=== PATIENT | female | born 1970 | race Caucasian/White ===

== ENCOUNTER 2020-12-15 10:40 | Outpatient (REF) | payer OTHER, SELFPAY ==
--- NOTE | 2020-12-15 10:04 | US_ITS ---
EXAMINATION: US ABDOMEN COMPLETE CLINICAL INFORMATION: Left lower quadrant pain and nausea. COMPARISON: Previous CT August 2018 and abdominal ultrasound June 2018 TECHNIQUE: Real-time imaging of the abdominal viscera. FINDINGS: PANCREAS: The body the pancreas are normal. The tail is not well visualized due to bowel gas. The midabdominal aorta is not well visualized due to bowel gas. ABDOMINAL AORTA: The proximal and distal segments are normal in caliber. INFERIOR VENA CAVA: Visualized portions are normal. LIVER: Liver echotexture is increased probably representing fatty infiltration. Liver is normal in size and shape. No focal liver lesion. There is no intrahepatic biliary duct dilatation seen. GALLBLADDER: The gallbladder has been removed. COMMON BILE DUCT: Normal in caliber measuring 0.3 cm in diameter. RIGHT KIDNEY: Normal. No hydronephrosis. No renal calculi or focal parenchymal lesions. The kidney measures 12.6 cm in maximum dimension. LEFT KIDNEY: There are 2 small stones measuring 2 mm in the midpole 3 mm in the lower pole. No hydronephrosis. No focal parenchymal lesions. The kidney measures 10.7 cm in maximum dimension. SPLEEN: Normal. The spleen measures 9.1 cm in maximum dimension. FREE FLUID: None. US/US abdomen complete IMPRESSION: Small left renal stones. Fatty liver. Limited visualization of the pancreas and aorta.
== END 2020-12-15 10:41 | disposition home or self-care (01) ==
LOC: HO.HMGCX 10:40
PROVIDERS: PCP Internal Medicine Geriatric Medicine; Visit Provider Registered Nurse
DX: R10.32 Left lower quadrant pain (principal); R11.0 Nausea; Z87.19 Personal history of other diseases of the digestive system
CPT/HCPCS: 76700

== ENCOUNTER 2021-01-24 14:17 | Emergency (ER) | payer OTHER, SELFPAY ==
[2021-01-24] VITALS (7 sets, daily range): BP systolic 110–128; BP diastolic 55–72; PULSE 82–99; RESP 16–20; TEMP 36.9–37; O2SAT 93–99; BMI 35.6
--- NOTE | ~2021-01-24 | CT_ITS ---
EXAMINATION: CT ABDOMEN AND PELVIS WITH CONTRAST CLINICAL INFORMATION: Left lower quadrant pain. COMPARISON: CT of the abdomen and pelvis dated 08/24/2018. TECHNIQUE: Multidetector volumetric images were obtained from the superior aspect of the liver through the pubic symphysis following administration 85 mL of Omnipaque 350 intravenous contrast. Sagittal and coronal reformatted images were obtained on the technologist's workstation. Oral contrast: No This CT examination was performed using dose optimization techniques as appropriate, variously including the following: *Automated exposure control *Adjustment of mA and/or kV according to patient size (this includes techniques or standardized protocols for targeted exams where dose is matched to indication/reason for exam; i.e. extremities or head) *Use of iterative reconstruction technique DLP: 716 mGy-cm FINDINGS: LUNG BASES: Lung bases are clear. Heart is normal in size. No pericardial effusion or thickening. LIVER, GALLBLADDER, AND BILIARY TREE: The liver is increased in size measuring up to 20.9 cm craniocaudal. Greater than 40 Hounsfield unit attenuation difference between the hepatic parenchyma splenic parenchyma compatible with steatotic changes. Gallbladder surgically absent. No intrahepatic or extra hepatic biliary ductal dilation. PANCREAS: Normal. SPLEEN: Normal. ADRENAL GLANDS: Normal. KIDNEYS AND URETERS: Symmetric nephrograms. No solid enhancing lesions. Tiny punctate nonobstructive calculus in the inferior pole the right kidney. No hydronephrosis. Ureters are normal in caliber throughout their course. BLADDER: Normal. GASTROINTESTINAL TRACT: Stomach is normal in caliber. The small and large bowel are unremarkable. Cecum is mobilized into the midline pelvis. No pericecal inflammatory changes are appreciated. Appendix is not definitively visualized. No midabdominal mesenteric inflammatory changes are seen. No rectal wall thickening is appreciated. PERITONEUM/RETROPERITONEUM AND MESENTERY: No intraperitoneal free air or fluid. Attention to the left lower quadrant demonstrates no evidence of mesenteric fat stranding or an acute inflammatory process. Nonenlarged left lower quadrant mesenteric lymph node measures up to 0.7 cm. ABDOMINAL WALL: No significant hernia is appreciated. LYMPH NODES: No pathologically enlarged lymph nodes. VASCULAR: Hepatic veins are normal. IVC is normal. No DVT visualized. Portal venous system is patent. Moderate aortoiliac atherosclerotic calcification. PELVIC VISCERA: Uterus is not visualized. Vaginal cuff is normal in appearance. No adnexal mass. OSSEOUS STRUCTURES/SOFT TISSUES: No aggressive osseous lesions. Neurostimulator in the right back posterior subcutaneous soft tissues with leads terminating at the T7 level. Left flank soft tissue stranding around a metallic dense structure (3:42). This is noted at the location of previously seen neurostimulator device on comparison 08/24/2018 examination which was at that time was positioned in the left posterior subcutaneous soft tissues. CT/CT abdomen pelvis w con IMPRESSION: 1. No CT explanation for left lower quadrant abdominal pain. No inflammatory process in the left lower quadrant or abdomen and pelvis is appreciated. 2. Hepatomegaly and hepatic steatosis. 3. Chronic inflammatory changes and scarring around the site of the removed left flank neurostimulator device in comparison to 08/24/2018 examination. 4. Cholecystectomy. 5. Hysterectomy.
--- NOTE | 2021-01-24 14:28 | ED_ITS ---
HPI - Abdominal Pain General Chief Complaint: Abdominal Pain Stated Complaint: FLANK PAIN,?KIDNEY STONE Time Seen by Provider: 01/24/21 14:28 Source: patient and EMS Mode of arrival: EMS Limitations: no limitations History of Present Illness HPI narrative: 51 yo female 1 month of L flank pain did have US but reports she only had punctate kidney stones, the patient is worsening and she c/o nausea MD elicited complaint: abdominal pain and flank pain Pertinent past history: kidney stones Onset (ago): month(s) (1) Pain Consistency: intermittent Location: LLQ and L flank Severity: severe Quality: stabbing Radiation: LLQ Migration to: no migration Exacerbating factors: nothing Relieving factors: nothing Associated symptoms: nausea Related Data Allergies Allergy/AdvReac Type Severity Reaction Status Date / Time bupropion [From ZYBAN] Allergy Intermediate HIVES Verified 01/24/21 14:32 clindamycin [CLINDAMYCIN] Allergy Intermediate HIVES Verified 01/24/21 14:32 clyndomicin Allergy Unknown Rash Uncoded 01/24/21 14:32 ziban Allergy Unknown Hives Uncoded 01/24/21 14:32 Review of Systems Review of Systems Constitutional : No Weight loss, No Fever, No Chills ENT/Mouth : No sore throat, No Rhinorrhea Eyes: No Swelling, No Redness Cardiovascular : No Chest Pain, No SOB, NoEdema Respiratory : No Cough, No Sputum, No Wheezing Gastrointestinal : Positive Nausea, no Vomiting, no Diarrhea, positive abdominal Pain, No Hematochezia, No Melena Genitourinary : No Dysuria, pos Urinary Frequency, No Hematuria, No Urgency Musculoskeletal : No joint pain, No Myalgias, No Joint Swelling Skin : No Skin Lesions, No rash Neuro : No Weakness, No Numbness, No Dizziness, No Headache Psych : No Anxiety/Panic, No Depression Heme/Lymph: No Bruising, No Lymphadenopathy Endocrine : No Polyuria, No Polydipsia All other systems reviewed and are negative. Physical Exam Vital Signs: Vital Signs: Last Vital Signs Temp 98.4 F 01/24/21 16:00 Pulse 89 01/24/21 16:00 Resp 16 01/24/21 16:00 BP 116/60 01/24/21 16:00 Pulse Ox 99 01/24/21 16:00 Body Mass Index 35.6 Appearance: Alert. Oriented X3. No acute distress. Eyes: Pupils equal, round and reactive to light. ENT: Pharynx normal. Neck: Normal inspection. Neck supple. CVS: Normal heart rate and rhythm. Pulses normal. Respiratory: No respiratory distress. Breath sounds normal. Abdomen: Soft and moderate LLQ pain, mild L CVA ttp Skin: Skin warm and dry. Normal skin color. Normal skin turgor. Extremities: No lower extremity edema. No calf ttp Neuro: Oriented X 3. No motor deficit. No sensory deficit. Course Course Course Narrative: signed out pending CT scan MDM - Abdominal Pain MDM Narrative Medical decision making narrative: 51 yo female with DM comes in with 1 month of LLQ pain some nausea and urinary frequency had US punctate renal stones - at this time will need labs, IV morphine for pain, CT scan to evaluate for diverticulitis/mass. Lab Data Result diagrams: 01/24/21 15:19 01/24/21 15:19 Labs: Lab Results 01/24/21 01/24/21 01/24/21 Range/Units 15:19 15:19 15:20 WBC 16.1 H (4.8-10.8) X10*3/uL RBC 5.04 (4.20-5.50) X10*6/uL Hgb 16.1 H (12.0-16.0) g/dl Hct 48.5 H (37-47) % MCV 96.2 (80-98) fL MCH 31.9 (27.0-33.0) pg MCHC 33.2 (31.0-35.0) g/dl RDW 14.1 (11.0-16.0) % Plt Count 277 (160-400) X10*3/uL MPV 11.5 (9.4-12.3) fL Immature Gran % (Auto) 0.5 H (0.0-0.4) % Neut % (Auto) 76.2 H (45-73) % Lymph % (Auto) 16.9 L (20-40) % [place] % (Auto) 5.0 (2-11) % Eos % (Auto) 1.0 (0-4) % Baso % (Auto) 0.4 (0-2) % Lymph # (Auto) 2.7 (1.2-4.9) X10*3/uL [place] # (Auto) 0.8 (0.1-1.2) X10*3/uL Eos # (Auto) 0.2 (0.0-0.4) X10*3/uL Baso # (Auto) 0.1 (0.0-0.2) X10*3/uL Abs Immat Gran (auto) 0.08 H (0.00-0.03) X10*3/uL Absolute Neuts (auto) 12.3 H (2.0-8.3) X10*3/uL Absolute Nucleated RBC 0.000 (0.0-0.012) X10*3/uL Nucleated RBC % (auto) 0.0 (0.0-0.2) /100WBC Hold Blue Top SEE NOTE Urine Color YELLOW Urine Appearance CLEAR Urine pH 6.5 (5.0-8.0) Ur Specific [place] 1.025 (1.005-1.025) Urine Protein NEG (NEG-TRACE) MG/DL Urine Glucose (UA) NEG (NEG) MG/DL Urine Ketones NEG (NEG) MG/DL Urine Blood TRACE (NEG) Urine Nitrite NEG (NEG) Ur Leukocyte Esterase NEG (NEG) Urine RBC 1-4 (0) /HPF Urine WBC 0-2 (0-4) /HPF Ur Squamous Epith Cells 1+ /LPF Urine Bacteria 1+ /LPF Discharge Plan Discharge Clinical Impression: Abdominal pain PMFSH Past Medical History Attestation statement: The following information was validated with the patient. Medical History Anxiety Cholecystectomy planned Depression Diabetes Presence of neurostimulator Surgical History History of appendectomy History of hysterectomy Hx of cholecystectomy Social History Social History Alcohol intake: never Smoking Status: Current every day smoker Smoked in Last 30 Days: Yes Use of substances other than those prescribed or required for medical reasons: No Advance Directives: No Advance Directives Information Provided: No
[2021-01-24] MEDS: ondansetron HCL 4 MG/2 ML VIAL IVPUSH (15:22)
[2021-01-24] MEDS: Morphine Sulfate 4 MG/ML CARTRIDGE IVPUSH (15:23)
[2021-01-24 15:32] LABS: MANUAL DIFF FLAG NO
[2021-01-24 15:38] LABS: Glucose Urine UA NEG (NEG); Leukocyte Esterase Urine NEG (NEG); Nitrite Urine NEG (NEG); PH 6.5 (5.0-8.0); Specific Gravity - Urine 1.025 (1.005-1.025); Urine Blood TRACE (NEG); Urine Ketones NEG (NEG); Urine Protein NEG (NEG-TRACE)
[2021-01-24 15:39] LABS: Basophils Absolute Auto 0.1 X10*3/uL (0.0-0.2); Basophils Percent Auto 0.4 % (0-2); Eosinophils Absolute Auto 0.2 X10*3/uL (0.0-0.4); Hematocrit 48.5 % (37-47); Hemoglobin 16.1 g/dl (12.0-16.0); Imm Gran Abs Auto 0.08 X10*3/uL (0.00-0.03); Imm Gran Pct Auto 0.5 % (0.0-0.4); Lymphocytes Absolute Auto 2.7 X10*3/uL (1.2-4.9); Lymphocytes Percent Auto 16.9 % (20-40); Mean Corpuscular HGB Conc 33.2 g/dl (31.0-35.0); Mean Corpuscular Hemoglobin 31.9 pg (27.0-33.0); Mean Corpuscular Volume 96.2 fL (80-98); Mean Platelet Volume 11.5 fL (9.4-12.3); Monocytes Absolute Auto 0.8 X10*3/uL (0.1-1.2); Neutrophils Absolute Auto 12.3 X10*3/uL (2.0-8.3); Neutrophils Percent Auto 76.2 % (45-73); Platelet Count 277 X10*3/uL (160-400); Red Blood Count 5.04 X10*6/uL (4.20-5.50); Red Cell Distribution Width 14.1 % (11.0-16.0); White Blood Count 16.1 X10*3/uL (4.8-10.8)
[2021-01-24 15:39] LABS: Appearance Urine CLEAR; Color Urine YELLOW
[2021-01-24 15:48] LABS: Bacteria Urine 1+ /LPF; Squamous Epithelial Cell Urine 1+ /LPF; WBC Urine 0-2 /HPF (0-4)
[2021-01-24 16:51] LABS: Alanine Aminotransferase 51 U/L (0-31); Albumin Level 4.4 g/dL (3.5-5.0); Alkaline Phosphatase 192 U/L (39-117); Anion Gap 12 (12-20); Aspartate Amino Transferase 60 U/L (5-31); Bilirubin Direct 0.2 mg/dL (0.0-0.5); Bilirubin Total 0.5 mg/dL (0.0-1.0); Blood Urea Nitrogen 10 mg/dL (9-16); Calcium 9.7 mg/dL (8.4-10.2); Carbon Dioxide 26 mmol/L (22-29); Chloride 103 mmol/L (96-108); Creatinine Clr Calc Pharmacy 77.9; Estimated Glomerular Filt Rate > 60; Glucose Random 126 mg/dL (60-115); Lipase 31 U/L (8-78); Magnesium 2.2 mg/dL (1.6-2.6); Potassium 5.3 mmol/L (3.3-5.1); Sodium 136 mmol/L (135-145)
[2021-01-24] MEDS: iohexoL 350 MG/ML 100 ML INFUS..BTL IV (17:05)
[2021-01-24 17:17] LABS: Lactic Acid 1.4 mmol/L (0.5-2.0)
[2021-01-24] MEDS: Morphine Sulfate 2 MG/ML CARTRIDGE IVPUSH (18:28)
[2021-01-24] MEDS: PHENobarb/Hyoscy/Atropine/Scop 10 ML ELIXIR PO (18:32)
== END 2021-01-24 18:40 | disposition home or self-care (01) ==
PROVIDERS: Emergency Medicine; Emergency Provider Emergency Medicine; PCP Internal Medicine Geriatric Medicine
DX: R10.32 Left lower quadrant pain (principal); R11.0 Nausea; E11.9 Type 2 diabetes mellitus without complications; Z96.82 Presence of neurostimulator; F17.200 Nicotine dependence, unspecified, uncomplicated
CPT/HCPCS: 36415; 74177; 80048; 80076; 81001; 83605; 83690; 83735; 85025; 87040; 96374; 96375; 96376; 99284; J2270; J2405; Q9967

== ENCOUNTER 2021-02-21 17:35 | Emergency (ER) | payer OTHER, SELFPAY ==
--- NOTE | ~2021-02-21 | CT_ITS ---
EXAMINATION: CT ABDOMEN AND PELVIS WITHOUT CONTRAST CLINICAL INFORMATION: Left flank pain. COMPARISON: CT abdomen and pelvis 02/21/2021 TECHNIQUE: Multidetector volumetric imaging was performed from the superior aspect of the liver through the pubic symphysis. Sagittal and coronal reformatted images were obtained on the technologist's workstation. This CT examination was performed using dose optimization techniques as appropriate, variously including the following: *Automated exposure control *Adjustment of mA and/or kV according to patient size (this includes techniques or standardized protocols for targeted exams where dose is matched to indication/reason for exam; i.e. extremities or head) *Use of iterative reconstruction technique DLP: 660 mGy-cm FINDINGS: LUNG BASES: The visualized lung bases are unremarkable. LIVER, GALLBLADDER, AND BILIARY TREE: The liver is increased in size, normal shape, and diffusely attenuated. No focal hepatic lesion or biliary ductal dilatation is present. The gallbladder as been surgically removed. PANCREAS: Unremarkable. SPLEEN: Unremarkable. ADRENAL GLANDS: Unremarkable. KIDNEYS AND URETERS: The kidneys are normal in size, shape, and attenuation. There is a 4 mm nonobstructing radiopaque calculi lower pole calyx right kidney. BLADDER: Unremarkable. GASTROINTESTINAL TRACT: There is scattered stool and gas seen throughout the colon without significant distention. Nonspecific mild mural thickening involving descending and sigmoid colon but no diverticula are seen. No pericolic fat stranding. . The cecum lies to the left from midline with normal appearing midline appendix. The small bowel loops are normal caliber. No free air or free fluid. ABDOMINAL WALL: There is a small umbilical hernia containing fat LYMPH NODES: No abnormal-sized mesenteric or inguinal lymph nodes seen. VASCULAR: Unremarkable. PELVIC VISCERA: The uterus appears surgically absent. No adnexal mass seen. There is no free air or free fluid. OSSEOUS STRUCTURES: There is mild loss of L3 superior endplate height similar to previous study. Lower thoracic posterior epidural spinal stimulators are noted. CT/CT abdomen pelvis wo con IMPRESSION: Mobile cecum with likely left of midline with a normal appendix and IC junction. Nonspecific thickening of descending and sigmoid colon but no inflammatory process suspected. Similar findings were seen on the previous CT abdomen exam dated 01/24/2021. Nonobstructive radiopaque calculi lower pole right kidney. It is unchanged to previous exam. No hydronephrosis. Mild hepatomegaly with fatty liver. No focal lesion seen.
[2021-02-21 17:41] VITALS: BP 112/51; BP 122/72; PULSE 93; RESP 18; TEMP 37.6; O2SAT 99; BMI 32.5
--- NOTE | 2021-02-21 17:44 | ED.ABDPAIN ---
HPI - Abdominal Pain General Chief Complaint: Abdominal Pain Stated Complaint: LT ABD PAIN Time Seen by Provider: 02/21/21 17:41 History of Present Illness HPI narrative: Patient is a 51-year-old female with a history of kidney stones. Presents today with having abdominal pain on the left side. Radiating to the flank area. Pain 8/10 very sudden in onset. Does not change with movement. Positive nausea no vomiting. No diarrhea. Patient from home. No cough no congestion or upper respiratory symptoms no diaphoresis. No chest pain. Related Data Previous Rx's Medication Instructions Recorded hyoscyamine sulfate 0.125 mg PO QID #14 tab 01/24/21 Allergies Allergy/AdvReac Type Severity Reaction Status Date / Time bupropion [From ZYBAN] Allergy Intermediate HIVES Verified 01/24/21 14:32 clindamycin [CLINDAMYCIN] Allergy Intermediate HIVES Verified 01/24/21 14:32 clyndomicin Allergy Unknown Rash Uncoded 01/24/21 14:32 ziban Allergy Unknown Hives Uncoded 01/24/21 14:32 Review of Systems Review of Systems Constitutional: No Weight loss, No Fever, No Chills, No Night Sweats, No Fatigue, No Malaise ENT/Mouth: No Hearing loss, No Ear Pain, No Nasal Congestion, No Sinus Pain, No Hoarseness, No sore throat, No Rhinorrhea, No Swallowing Difficulty Eyes: No Eye Pain, No Swelling, No Redness, No Foreign Body, No Discharge, No Vision Changes Cardiovascular: No Chest Pain, No SOB, No Dyspnea on Exertion, No Orthopnea, No Edema, No Palpitations Respiratory: No Cough, No Sputum, No Wheezing, No Smoke Exposure, No Dyspnea Gastrointestinal: No Nausea, No Vomiting, No Diarrhea, No Constipation, positive abdominal Pain, No Hematochezia, No Melena Genitourinary: no irregular bleeding, No Dysuria, No Urinary Frequency, No Hematuria, No Urinary Incontinence, No Urgency, No Flank Pain, No Urinary Flow Changes, No Hesitancy Musculoskeletal: No joint pain, No Myalgias, No Joint Swelling Skin: No Skin Lesions, No rash Neuro: No Weakness, No Numbness, No Paresthesias, No Loss of Consciousness, No Dizziness, No Headache Psych: No Anxiety/Panic, No Depression, No SI/HI/AH/VH, No Social Issues, Heme/Lymph: No Bruising, No Bleeding,No Lymphadenopathy Endocrine: No Polyuria, No Polydipsia, No Temperature Intolerance Physical Exam Vital Signs: Vital Signs: Last Vital Signs Temp 98.5 F 02/21/21 18:47 Pulse 89 02/21/21 18:47 Resp 18 02/21/21 18:47 BP 120/67 02/21/21 18:47 Pulse Ox 93 02/21/21 18:47 Body Mass Index 32.5 Appearance: Alert. Oriented X3. No acute distress. Eyes: Pupils equal, round and reactive to light. ENT: Pharynx normal. Neck: Normal inspection. Neck supple. No lymph nodes noted. No crepitus CVS: Normal heart rate and rhythm. Pulses normal. Normal S1 and S2 Respiratory: No respiratory distress. Breath sounds normal. No Wheezing. No rales Abdomen: Soft and nontender. No rigidity. No distention. good BS x4 Skin: Skin warm and dry. Normal skin color. Normal skin turgor. Extremities: No lower extremity edema. Neurovascular intact to all extremities. No Lacerations. No Rash Neuro: Oriented X 3. No motor deficit. No sensory deficit. Moving all extermities. No slurred speech MDM - Abdominal Pain MDM Narrative Medical decision making narrative: Patient's pain is controlled. Electrolytes unremarkable. Creatinine is normal. Urine showed no infection. Patient claims she had an ultrasound that showed potential kidney stone. Since the CT was done today it did not show any acute findings consistent with the pain. There is no stones. Will discharge patient home. Lab Data Result diagrams: 02/21/21 18:03 02/21/21 18:42 Labs: Lab Results 02/21/21 02/21/21 02/21/21 Range/Units 18:03 18:42 18:54 WBC 14.2 H (4.8-10.8) X10*3/uL RBC 5.12 (4.20-5.50) X10*6/uL Hgb 16.0 (12.0-16.0) g/dl Hct 48.5 H (37-47) % MCV 94.7 (80-98) fL MCH 31.3 (27.0-33.0) pg MCHC 33.0 (31.0-35.0) g/dl RDW 13.4 (11.0-16.0) % Plt Count 264 (160-400) X10*3/uL MPV 11.1 (9.4-12.3) fL Immature Gran % (Auto) 0.4 (0.0-0.4) % Neut % (Auto) 69.6 (45-73) % Lymph % (Auto) 21.4 (20-40) % [place] % (Auto) 6.3 (2-11) % Eos % (Auto) 1.7 (0-4) % Baso % (Auto) 0.6 (0-2) % Lymph # (Auto) 3.0 (1.2-4.9) X10*3/uL [place] # (Auto) 0.9 (0.1-1.2) X10*3/uL Eos # (Auto) 0.2 (0.0-0.4) X10*3/uL Baso # (Auto) 0.1 (0.0-0.2) X10*3/uL Abs Immat Gran (auto) 0.05 H (0.00-0.03) X10*3/uL Absolute Neuts (auto) 9.9 H (2.0-8.3) X10*3/uL Absolute Nucleated RBC 0.000 (0.0-0.012) X10*3/uL Nucleated RBC % (auto) 0.0 (0.0-0.2) /100WBC Sodium 139 (135-145) mmol/L Potassium 3.8 D (3.3-5.1) mmol/L Chloride 107 (96-108) mmol/L Carbon Dioxide 21 L (22-29) mmol/L Anion Gap 15 (12-20) BUN 9 (9-16) mg/dL Creatinine 0.73 (0.5-1.4) mg/dL Estim Creat Clear Calc 94.6 Estimated GFR > 60 Random Glucose 104 (60-115) mg/dL Calcium 9.2 (8.4-10.2) mg/dL Total Bilirubin 0.3 (0.0-1.0) mg/dL Direct Bilirubin < 0.2 (0.0-0.5) mg/dL AST 34 H D (5-31) U/L ALT 43 H (0-31) U/L Alkaline Phosphatase 178 H (39-117) U/L Total Protein 7.2 (6.5-8.0) g/dL Albumin 4.1 (3.5-5.0) g/dL Urine Color YELLOW Urine Appearance CLEAR Urine pH 6.0 (5.0-8.0) Ur Specific [place] 1.015 (1.005-1.025) Urine Protein NEG (NEG-TRACE) MG/DL Urine Glucose (UA) NEG (NEG) MG/DL Urine Ketones NEG (NEG) MG/DL Urine Blood 1+ H (NEG) Urine Nitrite NEG (NEG) Ur Leukocyte Esterase NEG (NEG) Urine RBC 5-9 H (0) /HPF Urine WBC 1-4 (0-4) /HPF Ur Squamous Epith Cells 2+ /LPF Urine Bacteria TRACE /LPF Urine Mucus TRACE /LPF Discharge Plan Discharge Clinical Impression: Abdominal pain Patient Disposition: Home, Self-Care Instructions: Abdominal Pain (ED) Prescriptions: No Action hyoscyamine sulfate 0.125 mg tablet 0.125 mg PO QID Qty: 14 RF: 0 Referrals: Name,MD Hakan [Primary Care Provider] - 2 days Print Language: Turkish [facility] Past Medical History Medical History Anxiety Cholecystectomy planned Depression Diabetes Presence of neurostimulator Surgical History History of appendectomy History of hysterectomy Hx of cholecystectomy Social History Social History Alcohol intake: never Smoking Status: Current every day smoker Advance Directives: No Advance Directives Information Provided: Yes
[2021-02-21] MEDS: 0.9 % Sodium Chloride 1,000 ML 999 ML IV (18:04)
[2021-02-21 18:08] VITALS: RESP 18
[2021-02-21] MEDS: ondansetron HCL 4 MG/2 ML VIAL IVPUSH (18:08)
[2021-02-21] MEDS: HYDROmorphone HCl 0.5 MG/0.5 ML SYRINGE IVPUSH (18:08)
[2021-02-21 18:09] LABS: MANUAL DIFF FLAG NO
[2021-02-21 18:11] LABS: Basophils Absolute Auto 0.1 X10*3/uL (0.0-0.2); Basophils Percent Auto 0.6 % (0-2); Eosinophils Absolute Auto 0.2 X10*3/uL (0.0-0.4); Eosinophils Percent Auto 1.7 % (0-4); Hematocrit 48.5 % (37-47); Imm Gran Abs Auto 0.05 X10*3/uL (0.00-0.03); Imm Gran Pct Auto 0.4 % (0.0-0.4); Lymphocytes Percent Auto 21.4 % (20-40); Mean Corpuscular Hemoglobin 31.3 pg (27.0-33.0); Mean Corpuscular Volume 94.7 fL (80-98); Mean Platelet Volume 11.1 fL (9.4-12.3); Monocytes Absolute Auto 0.9 X10*3/uL (0.1-1.2); Monocytes Percent Auto 6.3 % (2-11); Neutrophils Absolute Auto 9.9 X10*3/uL (2.0-8.3); Neutrophils Percent Auto 69.6 % (45-73); Platelet Count 264 X10*3/uL (160-400); Red Blood Count 5.12 X10*6/uL (4.20-5.50); Red Cell Distribution Width 13.4 % (11.0-16.0); White Blood Count 14.2 X10*3/uL (4.8-10.8)
[2021-02-21 18:47] VITALS: BP 120/67; PULSE 89; RESP 18; TEMP 36.9; O2SAT 93
[2021-02-21 19:02] LABS: Glucose Urine UA NEG (NEG); Leukocyte Esterase Urine NEG (NEG); Nitrite Urine NEG (NEG); Specific Gravity - Urine 1.015 (1.005-1.025); Urine Blood 1+ (NEG); Urine Ketones NEG (NEG); Urine Protein NEG (NEG-TRACE)
[2021-02-21 19:07] LABS: Appearance Urine CLEAR; Color Urine YELLOW
[2021-02-21 19:10] LABS: Alanine Aminotransferase 43 U/L (0-31); Albumin Level 4.1 g/dL (3.5-5.0); Alkaline Phosphatase 178 U/L (39-117); Anion Gap 15 (12-20); Aspartate Amino Transferase 34 U/L (5-31); Bilirubin Direct < 0.2 mg/dL (0.0-0.5); Bilirubin Total 0.3 mg/dL (0.0-1.0); Blood Urea Nitrogen 9 mg/dL (9-16); Calcium 9.2 mg/dL (8.4-10.2); Carbon Dioxide 21 mmol/L (22-29); Chloride 107 mmol/L (96-108); Creatinine Clr Calc Pharmacy 94.6; Estimated Glomerular Filt Rate > 60; Glucose Random 104 mg/dL (60-115); Potassium 3.8 mmol/L (3.3-5.1); Sodium 139 mmol/L (135-145); Total Protein 7.2 g/dL (6.5-8.0)
[2021-02-21 19:18] LABS: Bacteria Urine TRACE /LPF; Mucus Urine TRACE /LPF; Squamous Epithelial Cell Urine 2+ /LPF
[2021-02-21] MEDS: Ketorolac Tromethamine 30 MG/ML VIAL IVPUSH (19:21)
== END 2021-02-21 20:26 | disposition home or self-care (01) ==
PROVIDERS: Emergency Provider Emergency Medicine Emergency Medical Services; PCP Internal Medicine Geriatric Medicine
DX: R10.9 Unspecified abdominal pain (principal); Z87.442 Personal history of urinary calculi; E11.9 Type 2 diabetes mellitus without complications; F17.200 Nicotine dependence, unspecified, uncomplicated
CPT/HCPCS: 36415; 74176; 80048; 80076; 81001; 81003; 85025; 96361; 96374; 96375; 99283; 99284; J1170; J1885; J2405

== ENCOUNTER → 2021-02-27 07:54 | Outpatient (BNVA) | payer OTHER, SELFPAY | PROVIDERS: PCP Internal Medicine Geriatric Medicine; Visit Provider Physician Assistant | DX: R10.32 Left lower quadrant pain (principal); G89.29 Other chronic pain | CPT/HCPCS: 99202 ==

== ENCOUNTER → 2021-03-13 08:23 | Outpatient (BNVA) | payer OTHER, SELFPAY | PROVIDERS: PCP Internal Medicine Geriatric Medicine; Visit Provider Physician Assistant | DX: R10.32 Left lower quadrant pain (principal); G89.29 Other chronic pain | CPT/HCPCS: 99212 ==

== ENCOUNTER 2021-03-20 10:57 | Day surgery (SDC) | payer OTHER, SELFPAY ==
[2021-03-20 11:13] VITALS: BMI 35.5
[2021-03-20 11:19] VITALS: BP 143/81; PULSE 82; RESP 18; TEMP 36; O2SAT 97
[2021-03-20 11:30] LABS: Glucose, Whole Blood 176 mg/dL (60-115)
--- NOTE | 2021-03-20 11:32 | P.CONAN_ITS ---
[facility] Active Problems Active Problems: All Active Problems (Updated 03/15/21 @ 16:03 by Donita hernandes) Chronic LLQ pain (Acute) Past Medical History Medical History Anxiety Cholecystectomy planned Chronic LLQ pain Depression Diabetes Frequent headaches Presence of neurostimulator Family History Family History Father No problems noted. Surgical History Surgical History History of appendectomy History of hysterectomy Hx of cholecystectomy Hx of left inguinal hernia repair S/P insertion of spinal cord stimulator Social History Social History Household Members: Spouse Alcohol intake: never Smoking Status: Current every day smoker Cigarettes Per Day: 6 Use of substances other than those prescribed or required for medical reasons: No Have you been hit, kicked, punched, or otherwise hurt by someone within the past year? If so, by whom?: No Advance Directives: No Advance Directives Information Provided: Yes Current occupational status: unemployed and disabled Meds Allergies Allergy/AdvReac Type Severity Reaction Status Date / Time bupropion [From ZYBAN] Allergy Intermediate HIVES Verified 03/15/21 15:55 clindamycin [CLINDAMYCIN] Allergy Intermediate HIVES Verified 03/15/21 15:55 Home Medications Medication Instructions Recorded Confirmed Last Taken Type citalopram 40 mg tablet 40 mg PO DAILY 02/27/21 03/15/21 Unknown History clonazepam 1 mg tablet 1 mg PO DAILY 02/27/21 03/15/21 Unknown History mirtazapine 45 mg tablet 45 mg PO BEDTIME 02/27/21 03/15/21 Unknown History quetiapine 100 mg tablet 100 mg PO BEDTIME 02/27/21 03/15/21 Unknown History tizanidine 4 mg tablet 4 mg PO BEDTIME 02/27/21 03/15/21 Unknown History risperidone 1 tab PO BEDTIME 03/15/21 03/15/21 Unknown History risperidone 1 tab PO QAM 03/15/21 03/15/21 Unknown History Exam Exam Date and Time: March 20, 2021 1132 Height,Weight and Vital Signs: Height 5 ft 1 in Weight 85.275 kg Last Vital Signs Temp 96.8 F 03/20/21 11:19 Pulse 82 03/20/21 11:19 Resp 18 03/20/21 11:19 BP 143/81 H 03/20/21 11:19 Pulse Ox 97 03/20/21 11:19 Pertinent Lab Results Pertinent Lab Results: Laboratory Tests 03/20/21 11:25 POC Glucose 176 H Airway Mallampati Class: II (Edentulous) TM Dist: >3cm Neck ROM: Full Denture: Upper and Lower Loose/Missing/Broken Teeth: Yes, Upper and Lower Heart: RRR Lungs: CTA Assessment and Plan Assessment Anesthesia Assessment: Anesthesia Plan Discussed and Chart Reviewed Final Anesthetic Review NPO: Yes ASA Class: II Final Preanesthetic Review: Meds/Allgs Chart Reviewed, Consent Obtained/Reviewed and Anes Risks/Benef Reviewed Patient Risk: Low Procedure Risk: Low Anesthetic Plan Anesthetic Plan: MAC: Disposition: Standard PACU
[2021-03-20] MEDS: Lactated Ringers 1,000 ML 50 ML IV (11:41)
--- NOTE | 2021-03-20 11:58 | P.OP_ITS ---
Operative Note Operative Note Date of Service: 03/20/21 Narrative: Pre-op diagnosis: Colon cancer screening, left lower quadrant pain, history of colon polyps Post-op diagnosis: other (Colon polyps) Procedure: COLONOSCOPY TILL CECUM WITH BIOPSIES Consent: Indications for the procedure and potential complications of bleeding, perforation, reaction to medications and missed diagnosis were discussed with the patient and informed consent was obtained. Instrument: Olympus PCF H 190 L variable stiffness pediatric colonoscope Monitoring: Vital signs and clinical assessment, intermittent blood pressure monitoring, continuous EKG monitoring, Pulse oximetry and Carbon Dioxide monitoring were done throughout the procedure. Colon withdrawl time was 26 minutes. Procedure: The patient was placed in the left lateral decubitis position and pre-procedure medications were administered. After a digital rectal examination of the ano-rectum, the video colonoscope was inserted into the rectum and advanced through the colon to the cecum. The colonoscope was slowly withdrawn in a retrograde panoramic fashion and the colon mucosa was carefully examined including a retroflexed view of the rectum. Findings and interventions are described below. Procedure Difficulty: Colon was long tortuous and redundant and there was some will formation. No maneuvers were required Findings: Terminal Ileum: Not evaluated Cecum: Normal Ascending Colon: Normal Transverse Colon: Normal Descending Colon: Normal Sigmoid Colon: A few 2-4 mm diminutive appearing polyps in sigmoid colon - two were removed with the cold biopsy. Rectum: Normal Ano-rectum: Normal Colon preparation: Good after copious irrigation Impression and Post Procedure Diagnosis: Colonoscopy Findings: Two diminutive polyps removed Random biopsies were obtained from the colon. Plan: Await pathology results Patient has an appointment on 03/29/21 in the GI Clinic with PAKO Rivera. Repeat Colonoscopy interval based on path results - in 5 years if polyps are adenomatous and due to history of colon polyps. Above findings were reviewed with the patient and colon polyps handout was given in the discharge area Surgeon: Jacob Cadena MD Anesthesia: MAC (Lesly Jackson CRNA) Enrollment Eligibility Representative: Kole Machado Estimated blood loss (mL): 0 Pathology: other (A- RANDOM COLON BXS R/O MICROSCOPIC COLITIS B- SIGMOID POLYPS) Condition: stable Disposition: PACU
--- NOTE | 2021-03-20 11:58 | MHC.SHP ---
Pre-Procedural Eval Section A The patient is an INPATIENT: No Changes since office visit: Yes Patient answered all questions; No Cold of Flu in the past 2 weeks, No New Medical Problems and No Changes in Medication The History & Physical has been completed within 30 days and I have reviewed it.: Yes Section B Chief Complaint: Chronic LLQ pain Allergies: Allergies Allergy/AdvReac Type Severity Reaction Status Date / Time bupropion [From ZYBAN] Allergy Intermediate HIVES Verified 03/15/21 15:55 clindamycin [CLINDAMYCIN] Allergy Intermediate HIVES Verified 03/15/21 15:55 Plan Diagnosis/Plan: Unchanged I have reviewed the history and physical and performed a pertinent physical examination on my patient. No changes have occurred unless specified.
[2021-03-20 13:02] VITALS: BP 104/70; PULSE 83; RESP 16; TEMP 36.2; O2SAT 94
[2021-03-20 13:17] VITALS: BP 122/71; PULSE 78; RESP 18; TEMP 36.2; O2SAT 95
== END 2021-03-20 13:50 | disposition home or self-care (01) ==
PROVIDERS: PCP Internal Medicine Geriatric Medicine; Visit Provider Internal Medicine Gastroenterology
PROC: 0DJD8ZZ Inspection of Lower Intestinal Tract, Via Natural or Artificial Opening Endoscopic (ICD-10-PCS; CPT 45378; principal; 2021-03-20 12:20)
DX: Z12.11 Encounter for screening for malignant neoplasm of colon (principal); Z86.010 Personal history of colon polyps; K63.5 Polyp of colon; R10.32 Left lower quadrant pain; G89.4 Chronic pain syndrome; E11.9 Type 2 diabetes mellitus without complications; Z90.49 Acquired absence of other specified parts of digestive tract; Z96.82 Presence of neurostimulator; F17.210 Nicotine dependence, cigarettes, uncomplicated; Z79.899 Other long term (current) drug therapy; Z88.8 Allergy status to other drugs, medicaments and biological substances
CPT/HCPCS: 45380; 82947; 88305

== ENCOUNTER → 2021-03-29 13:37 | Outpatient (BNVA) | payer OTHER, SELFPAY | PROVIDERS: Visit Provider Physician Assistant | CPT/HCPCS: Q3014 ==

== ENCOUNTER 2021-05-04 11:56 | Outpatient (REF) | payer OTHER, SELFPAY ==
--- NOTE | ~2021-05-04 | CT_ITS ---
EXAMINATION: CT ABDOMEN WITH CONTRAST CLINICAL INFORMATION: Left upper quadrant pain. COMPARISON: Portions of a previous CT performed without IV contrast 02/21/2021. TECHNIQUE: Contiguous axial thin section helical images of the abdomen were performed following the administration of oral contrast and 85 mL of Omnipaque 350 intravenous contrast. The data set was reformatted in the coronal and sagittal planes and reviewed on an independent workstation. This CT examination was performed using dose optimization techniques as appropriate, variously including the following: *Automated exposure control *Adjustment of mA and/or kV according to patient size (this includes techniques or standardized protocols for targeted exams where dose is matched to indication/reason for exam; i.e. 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 There are leads extending into the lower thoracic spinal canal. No evidence of small bowel obstruction. LUNG BASES: No suspicious abnormality in the visualized lower chest. LIVER, GALLBLADDER, AND BILIARY TREE: Diffuse low-attenuation throughout the liver consistent with fatty change. The liver contour is smooth. There is no suspicious focal liver lesion. Suspect previous cholecystectomy. No biliary dilation. PANCREAS: No pancreatic mass or peripancreatic stranding. SPLEEN: No suspicious abnormality. ADRENAL GLANDS AND KIDNEYS: The adrenal glands appear within normal limits. There is no dilation of the urinary collecting system on either side. The nephrograms are symmetric. There is no suspicious renal mass. No perinephric stranding. There is no opaque urinary calculus. BOWEL LOOPS: There is apparent narrowing and wall thickening in the region of the splenic flexure. There is no enteric contrast in the region of the splenic flexure of the colon. There is contrast within the colon proximal and distal to this segment. There is no small bowel dilation. No suspicious abnormality of the stomach. LYMPH NODES: There are no enlarged abdominal or pelvic lymph nodes. VASCULAR: The study is not well timed for arterial assessment. There is fairly extensive atherosclerosis. Mesenteric vasculature is not well evaluated. BONES: There is an electronic device in the soft tissues of the lower right flank. Opaque leads project into the lower thoracic spinal canal. There is some unchanged chronic-appearing abnormality in the soft tissues on the left which could reflect the site of an old electronic device. Small segments of a left-sided lead may be present within the soft tissues. CT/CT abdomen w con IMPRESSION: There is apparent wall thickening and luminal narrowing in the splenic flexure of the colon. This could reflect colitis. This is an area which can be involved by ischemia but this is nonspecific. Other etiologies should also be considered. Some clinical correlation is necessary. There is no CT evidence of acute pancreatitis. There is no evidence of left-sided urinary obstruction.
[2021-05-04 12:41] LABS: Hematocrit 50.7 % (37-47); Hemoglobin 16.9 g/dl (12.0-16.0); Mean Corpuscular HGB Conc 33.3 g/dl (31.0-35.0); Mean Corpuscular Hemoglobin 31.4 pg (27.0-33.0); Mean Corpuscular Volume 94.2 fL (80-98); Mean Platelet Volume 11.1 fL (9.4-12.3); Platelet Count 256 X10*3/uL (160-400); Red Blood Count 5.38 X10*6/uL (4.20-5.50); White Blood Count 14.7 X10*3/uL (4.8-10.8)
[2021-05-04 12:58] LABS: Alanine Aminotransferase 33 U/L (0-31); Albumin Level 4.5 g/dL (3.5-5.0); Alkaline Phosphatase 195 U/L (39-117); Anion Gap 15 (12-20); Aspartate Amino Transferase 32 U/L (5-31); Bilirubin Total 0.3 mg/dL (0.0-1.0); Blood Urea Nitrogen 14 mg/dL (9-16); Calcium 9.7 mg/dL (8.4-10.2); Carbon Dioxide 23 mmol/L (22-29); Chloride 106 mmol/L (96-108); Estimated Glomerular Filt Rate > 60; Glucose Random 126 mg/dL (60-115); Lipase 30 U/L (8-78); Potassium 4.7 mmol/L (3.3-5.1); Sodium 139 mmol/L (135-145); Total Protein 7.8 g/dL (6.5-8.0)
[2021-05-04] MEDS: iohexoL 350 MG/ML 100 ML INFUS..BTL IV (15:53)
[2021-05-04] MEDS: Barium Sulfate Oral (Mocha) 450 ML ORAL.SUSP PO (16:04)
== END 2021-05-04 11:57 | disposition home or self-care (01) ==
LOC: HO.CT 11:56
PROVIDERS: PCP Internal Medicine Geriatric Medicine; Visit Provider Internal Medicine Geriatric Medicine
DX: R10.12 Left upper quadrant pain (principal)
CPT/HCPCS: 36415; 74160; 80053; 83690; 85027; Q9967

== ENCOUNTER → 2021-06-11 15:02 | Outpatient (BNVA) | payer OTHER, SELFPAY | PROVIDERS: PCP Internal Medicine Geriatric Medicine; Visit Provider Internal Medicine | DX: R52 Pain, unspecified (principal) | CPT/HCPCS: 20552; 99212; J1040 ==

== ENCOUNTER 2021-07-11 10:45 | Day surgery (SDC) | payer OTHER, SELFPAY ==
--- NOTE | 2021-07-10 09:16 | HO.ANESPROP2 ---
Documented by User: Jeannette Ochoa NP 07/10/21 09:20 HPI - Anesthesia Eval Consult details Narrative: 51yo F for Revision Spinal Cord Stimulator left lead, possible implantable pulse generator spinal stim implanted/revised 2018 [facility] Active Problems Active Problems: All Active Problems (Updated 06/11/21 @ 16:03 by Jon Ho MD) Pain in pacemaker pocket (Acute) Chronic LLQ pain (Acute) Past Medical History Medical History Anxiety Cholecystectomy planned Chronic LLQ pain Depression Diabetes Frequent headaches Pain in pacemaker pocket Presence of neurostimulator Family History Family History Father No problems noted. Surgical History Surgical History History of appendectomy History of hysterectomy Hx of cholecystectomy Hx of left inguinal hernia repair S/P insertion of spinal cord stimulator Social History Social History (Updated 03/29/21 @ 13:40 by Rosanna Curtis CMA) Household Members: Significant Other Household Members Other:: lives with BF Alcohol intake: never Patient Tobacco Use Status: Current everyday Tobacco user Tobacco use type: Cigarette Cigarettes Per Day: 6 Smoked in Last 30 Days: Yes Use of substances other than those prescribed or required for medical reasons: No Are you DNR?: No Advance Directives: No Advance Directives Information Provided: Yes Recently lost weight without trying: No Nutrition Risks: No Nutritional Risk Patient : No Current occupational status: disabled Meds Allergies Allergy/AdvReac Type Severity Reaction Status Date / Time bupropion [From ZYBAN] Allergy Intermediate HIVES Verified 06/11/21 15:08 clindamycin [CLINDAMYCIN] Allergy Intermediate HIVES Verified 06/11/21 15:08 Home Medications Medication Instructions Recorded Confirmed Last Taken Type citalopram 40 mg tablet (Celexa) 40 mg PO DAILY 02/27/21 03/29/21 Unknown History clonazepam 1 mg tablet (Klonopin) 1 mg PO DAILY 02/27/21 03/29/21 Unknown History mirtazapine 45 mg tablet 45 mg PO BEDTIME 02/27/21 03/29/21 Unknown History quetiapine 100 mg tablet (Seroquel) 100 mg PO BEDTIME 02/27/21 03/29/21 Unknown History tizanidine 4 mg tablet 4 mg PO BEDTIME 02/27/21 03/29/21 Unknown History risperidone 1 mg tablet 1 tab PO QAM 03/15/21 03/29/21 Unknown History risperidone 3 mg tablet 1 tab PO BEDTIME 03/15/21 03/29/21 Unknown History Exam Exam Date and Time: July 10, [id number] Pertinent Lab Results Pertinent Lab Results: Laboratory Tests 05/04/21 05/04/21 12:28 12:28 WBC 14.7 H Hgb 16.9 H Hct 50.7 H Plt Count 256 Sodium 139 Potassium 4.7 D Chloride 106 Carbon Dioxide 23 BUN 14 D Creatinine 0.92 Assessment and Plan Assessment Anesthesia Assessment: Chart Reviewed Documented by User: Malaika Mcbride MD 07/11/21 13:26 [facility] Past Medical History Medical History Anxiety Cholecystectomy planned Chronic LLQ pain Depression Diabetes Frequent headaches Pain in pacemaker pocket Presence of neurostimulator Functional capacity: independent ambulation Patient : No Family History Family History Father No problems noted. Family history of problems with anesthesia: No Surgical History Surgical History History of appendectomy History of hysterectomy Hx of cholecystectomy Hx of left inguinal hernia repair S/P insertion of spinal cord stimulator History of Problems with Anesthesia: No Social History Social History (Updated 03/29/21 @ 13:40 by Rosanna Curtis CMA) Household Members: Significant Other Household Members Other:: lives with Alcohol intake: never Patient Tobacco Use Status: Current everyday Tobacco user Tobacco use type: Cigarette Cigarettes Per Day: 6 Smoked in Last 30 Days: Yes Use of substances other than those prescribed or required for medical reasons: No Are you DNR?: No Advance Directives: No Advance Directives Information Provided: Yes Recently lost weight without trying: No Nutrition Risks: No Nutritional Risk Patient : No Current occupational status: disabled Meds Allergies Allergy/AdvReac Type Severity Reaction Status Date / Time bupropion [From ZYBAN] Allergy Intermediate HIVES Verified 06/11/21 15:08 clindamycin [CLINDAMYCIN] Allergy Intermediate HIVES Verified 06/11/21 15:08 Home Medications Medication Instructions Recorded Confirmed Last Taken Type citalopram 40 mg tablet (Celexa) 40 mg PO DAILY 02/27/21 03/29/21 Unknown History clonazepam 1 mg tablet (Klonopin) 1 mg PO DAILY 02/27/21 03/29/21 Unknown History mirtazapine 45 mg tablet 45 mg PO BEDTIME 02/27/21 03/29/21 Unknown History quetiapine 100 mg tablet (Seroquel) 100 mg PO BEDTIME 02/27/21 03/29/21 Unknown History tizanidine 4 mg tablet 4 mg PO BEDTIME 02/27/21 03/29/21 Unknown History risperidone 1 mg tablet 1 tab PO QAM 03/15/21 03/29/21 Unknown History risperidone 3 mg tablet 1 tab PO BEDTIME 03/15/21 03/29/21 Unknown History Exam Airway Mallampati Class: IV TM Dist: >3cm Neck ROM: Full Denture: Upper and Lower Heart: RRR Lungs: CTA Assessment and Plan Final Anesthetic Review Family History of Problems with Anesthesia: No History of Problems with Anesthesia: No
--- NOTE | ~2021-07-11 | FL_ITS ---
EXAMINATION: XR FLUOROSCOPY WITH IMAGES CLINICAL INFORMATION: Lead revision COMPARISON: None. TECHNIQUE: Fluoroscopy performed by Dr. Ho . Fluoroscopy time: 2.9 minutes DAP: 13.4 mGycm2 Images: 1 FINDINGS: A single image PA projection reveals to leads positioned posterior to T8-T10 vertebra. Visualized bones and disc levels are unremarkable. FL/FL guidance in OR IMPRESSION: Fluoroscopy was provided to the referring physician for lead revision.
[2021-07-11 10:50] VITALS: BMI 34.4
[2021-07-11 10:57] VITALS: BP 122/67; PULSE 95; RESP 16; TEMP 35.9; O2SAT 95
[2021-07-11] MEDS: Lactated Ringers 1,000 ML 100 ML IVCONT (11:12)
[2021-07-11 11:16] LABS: Glucose, Whole Blood 142 mg/dL (60-115)
--- NOTE | 2021-07-11 12:00 | MHC.SHP ---
Pre-Procedural Eval Section A Date of Service: 07/11/21 Section B Chief Complaint: Left SCS lead migration Allergies: Allergies Allergy/AdvReac Type Severity Reaction Status Date / Time bupropion [From ZYBAN] Allergy Intermediate HIVES Verified 06/11/21 15:08 clindamycin [CLINDAMYCIN] Allergy Intermediate HIVES Verified 06/11/21 15:08 Exam Surgical H&P Exam: Normal: HEENT Plan Diagnosis/Plan: Unchanged I have reviewed the history and physical and performed a pertinent physical examination on my patient. No changes have occurred unless specified.
--- NOTE | 2021-07-11 12:01 | P.BOP_ITS ---
Brief Operative Note Date of Service: 07/11/21 Pre-op diagnosis: Left SCS lead migration Post-op diagnosis: same Procedure: SCS Lead Revision, Left; IPG Replacement Implants: SCS lead and battery Surgeon: Jon Ho MD Anesthesia: MAC Was an Coder Operator used for this Procedure?: No Estimated blood loss (mL): 10 Pathology: none sent Condition: stable Disposition: PACU
--- NOTE | 2021-07-11 12:02 | W.PM.OPN ---
Operative Note Operative Note Date of Service: 07/11/21 Narrative: SCS Revision with reinsertion of left epidural lead and replacement of implantable pulse generator Description of Procedure: ? Informed written consent was obtained. Cefazolin 2 g was?started 30 minutes prior to incision. The patient was taken to the operating room and placed in prone position. The low thoracic and lumbar back was prepped with Chlorhexadine twice, with three minutes allotted for drying time,?draped in the usual sterile fashion. Local anesthetic consisting of 0.25% Marcaine with Lidocaine 1% with?epinephrine was injected in the area of both prior incisions. Fluoroscopy was used to identify the location of the anchors and leads. Insertion site for the left lead was identified at the L2-3 level. ?A #15 blade was used to reincise over her midline scar. The existing left lead was found floating in the soft tissue and was removed with tip intact. The anchor was found buried under the fascia and was subsequently removed as well. A 14 gauge Touhy needle was then used to obtain loss of resistance to air in the L1-2 interspace. A new lead was then threaded without resistance along the dorsal column up to the top of T8 vertebra. At this point, the new left and existing right leads were connected to the carter and the patient's anesthetic was lightened so that she could provide feedback regarding stimulation. From the spinal cord stimulator leads, the patient was able to obtain coverage of her left lower back and leg pain. This coverage was deemed to be satisfactory.?The Touhy was then removed and the new lead anchored to the prevertebral fascia using 2-0 Tycron.?Final confirmation of retention of lead placement was confirmed by using fluoroscopy. Attention was now directed toward the IPG pocket. Local anesthetic was used to infiltrate the skin overlying the planned incision site. A #15 blade was used to incise the skin. Blunt dissection was used and the IPG was pulled atraumatically. Leads were disconnected and the battery removed from the operating field. A 20 cm extension was connected to the midline lead to IPG pocket. The spinal cord stimulator leads from the midline back, were then pulled through the subcutaneous tunnel and inserted into a new IPG. The connection was secured with a screwdriver. The implantable pulse generator was placed back in the existing pocket. Impedance checks were done and appropriate impedances found. ?Antibiotic irrigation was used prior to closure. Pocket incision was closed with continuous and midline back incision was closed with interrupted 2-0 Vicryl, deep dermal with 3-0 Vicryl, and the skin using santos. Dressed with bacitracin ointment, sterile gauze, Tegederm. The patient was then woken and transferred to a stretcher and taken to the recovery room.?
[2021-07-11 15:15] VITALS: BP 114/73; PULSE 90; RESP 16; TEMP 36.2; O2SAT 96
[2021-07-11 15:30] VITALS: BP 110/62; PULSE 77; RESP 18; O2SAT 98
[2021-07-11 15:45] VITALS: BP 122/50; PULSE 81; RESP 17; TEMP 36.4; O2SAT 100
[2021-07-11] MEDS: Acetaminophen 325 MG TABLET 650 MG PO (15:51)
== END 2021-07-11 16:13 | disposition home or self-care (01) ==
PROVIDERS: PCP Internal Medicine Geriatric Medicine; Visit Provider Internal Medicine
PROC: (CPT 63663; principal; 2021-07-11 12:00)
DX: T85.122A Displacement of implanted electronic neurostimulator of spinal cord electrode (lead), initial encounter (principal); M54.5 Low back pain; G89.29 Other chronic pain; M96.1 Postlaminectomy syndrome, not elsewhere classified; Y82.8 Other medical devices associated with adverse incidents; Y92.9 Unspecified place or not applicable
CPT/HCPCS: 63663; 63688; 82947; C1713; C1883; C1897; J0690; J2250; J2405; J3010; J3370

== ENCOUNTER → 2021-07-20 08:44 | Outpatient (BNVA) | payer OTHER, SELFPAY | PROVIDERS: PCP Internal Medicine Geriatric Medicine; Visit Provider Internal Medicine | DX: Z96.82 Presence of neurostimulator (principal) | CPT/HCPCS: 99212 ==

== ENCOUNTER → 2021-07-27 08:51 | Outpatient (BNVA) | payer OTHER, SELFPAY | PROVIDERS: PCP Internal Medicine Geriatric Medicine; Visit Provider Internal Medicine | DX: R52 Pain, unspecified (principal); Z96.82 Presence of neurostimulator | CPT/HCPCS: 99212 ==

== ENCOUNTER 2021-08-08 11:37 | Day surgery (SDC) | payer OTHER, SELFPAY ==
--- NOTE | 2021-08-07 10:45 | HO.ANESPROP2 ---
Documented by User: Jeannette Ochoa NP 08/07/21 10:46 HPI - Anesthesia Eval Consult details Narrative: 51yo F for Right Superficial Revision of Pocket Wound s/p Spinal Stim Revision with TIVA 07/11/21 PMF[facility] Active Problems Active Problems: All Active Problems (Updated 07/20/21 @ 10:06 by Jon Ho MD) Presence of neurostimulator (Acute) Pain in pacemaker pocket (Acute) Chronic LLQ pain (Acute) Past Medical History Medical History Anxiety Cholecystectomy planned Chronic LLQ pain Depression Diabetes Frequent headaches Pain in pacemaker pocket Presence of neurostimulator Family History Family History Father No problems noted. Family history of problems with anesthesia: No Surgical History Surgical History History of appendectomy History of hysterectomy Hx of cholecystectomy Hx of left inguinal hernia repair S/P insertion of spinal cord stimulator History of Problems with Anesthesia: No Social History Social History Household Members: Significant Other Household Members Other:: lives with BF Alcohol intake: never Patient Tobacco Use Status: Current everyday Tobacco user Tobacco use type: Cigarette Cigarettes Per Day: 6 Use of substances other than those prescribed or required for medical reasons: No Have you been hit, kicked, punched, or otherwise hurt by someone within the past year? If so, by whom?: No Are you DNR?: No Advance Directives: No Advance Directives Information Provided: Yes Recently lost weight without trying: No Nutrition Risks: No Nutritional Risk Patient : No Current occupational status: disabled Meds Allergies Allergy/AdvReac Type Severity Reaction Status Date / Time bupropion [From ZYBAN] Allergy Intermediate HIVES Verified 07/27/21 09:01 clindamycin [CLINDAMYCIN] Allergy Intermediate HIVES Verified 07/27/21 09:01 Home Medications Medication Instructions Recorded Confirmed Last Taken Type citalopram 40 mg tablet (Celexa) 40 mg PO DAILY 02/27/21 03/29/21 Unknown History clonazepam 1 mg tablet (Klonopin) 1 mg PO DAILY 02/27/21 03/29/21 Unknown History mirtazapine 45 mg tablet 45 mg PO BEDTIME 02/27/21 03/29/21 Unknown History quetiapine 100 mg tablet (Seroquel) 100 mg PO BEDTIME 02/27/21 03/29/21 Unknown History tizanidine 4 mg tablet 4 mg PO BEDTIME 02/27/21 03/29/21 Unknown History risperidone 1 mg tablet 1 tab PO QAM 03/15/21 03/29/21 Unknown History risperidone 3 mg tablet 1 tab PO BEDTIME 03/15/21 03/29/21 Unknown History Exam Exam Date and Time: August 07, 2021 1045 Pertinent Lab Results Pertinent Lab Results: Laboratory Tests ? 05/04/21 05/04/21 ? 12:28 12:28 WBC ?14.7 H ? Hgb ?16.9 H ? Hct ?50.7 H ? Plt Count ?256 ? Sodium ? ?139 Potassium ? ?4.7? D Chloride ? ?106 Carbon Dioxide ? ?23 BUN ? ?14? D Creatinine ? ?0.92 Assessment and Plan Assessment Anesthesia Assessment: Chart Reviewed Final Anesthetic Review Family History of Problems with Anesthesia: No History of Problems with Anesthesia: No Documented by User: Adilia Belcher MD 08/08/21 14:13 [facility] Past Medical History Medical History Anxiety Cholecystectomy planned Chronic LLQ pain Depression Diabetes Frequent headaches Pain in pacemaker pocket Presence of neurostimulator Family History Family History Father No problems noted. Surgical History Surgical History History of appendectomy History of hysterectomy Hx of cholecystectomy Hx of left inguinal hernia repair S/P insertion of spinal cord stimulator Social History Social History Household Members: Significant Other Household Members Other:: lives with BF Alcohol intake: never Patient Tobacco Use Status: Current everyday Tobacco user Tobacco use type: Cigarette Cigarettes Per Day: 6 Use of substances other than those prescribed or required for medical reasons: No Have you been hit, kicked, punched, or otherwise hurt by someone within the past year? If so, by whom?: No Are you DNR?: No Advance Directives: No Advance Directives Information Provided: Yes Recently lost weight without trying: No Nutrition Risks: No Nutritional Risk Patient : No Current occupational status: disabled Meds Allergies Allergy/AdvReac Type Severity Reaction Status Date / Time bupropion [From ZYBAN] Allergy Intermediate HIVES Verified 07/27/21 09:01 clindamycin [CLINDAMYCIN] Allergy Intermediate HIVES Verified 07/27/21 09:01 Home Medications Medication Instructions Recorded Confirmed Last Taken Type citalopram 40 mg tablet (Celexa) 40 mg PO DAILY 02/27/21 03/29/21 Unknown History clonazepam 1 mg tablet (Klonopin) 1 mg PO DAILY 02/27/21 03/29/21 Unknown History mirtazapine 45 mg tablet 45 mg PO BEDTIME 02/27/21 03/29/21 Unknown History quetiapine 100 mg tablet (Seroquel) 100 mg PO BEDTIME 02/27/21 03/29/21 Unknown History tizanidine 4 mg tablet 4 mg PO BEDTIME 02/27/21 03/29/21 Unknown History risperidone 1 mg tablet 1 tab PO QAM 03/15/21 03/29/21 Unknown History risperidone 3 mg tablet 1 tab PO BEDTIME 03/15/21 03/29/21 Unknown History Exam Airway Mallampati Class: II TM Dist: >3cm Neck ROM: Full Assessment and Plan Assessment Anesthesia Assessment: Anesthesia Plan Discussed Final Anesthetic Review NPO: Yes ASA Class: II Final Preanesthetic Review: No Changes in Pt Med Stat, Meds/Allgs Chart Reviewed, Consent Obtained/Reviewed and Anes Risks/Benef Reviewed Patient Risk: Low Procedure Risk: Low Assessment/Block/Sedation in SS: Assess/Block/Sedation-SS Anesthetic Plan Anesthetic Plan: MAC: Disposition: Standard PACU
--- NOTE | 2021-08-08 12:27 | MHC.SHP ---
Pre-Procedural Eval Section A Date of Service: 08/08/21 The patient is an INPATIENT: No The History & Physical has been completed within 30 days and I have reviewed it.: Yes Section B Chief Complaint: Unspecified Pain Relevant Family History (Specify if Yes): No Allergies: Allergies Allergy/AdvReac Type Severity Reaction Status Date / Time bupropion [From ZYBAN] Allergy Intermediate HIVES Verified 07/27/21 09:01 clindamycin [CLINDAMYCIN] Allergy Intermediate HIVES Verified 07/27/21 09:01 Review of Systems Sugical H&P ROS: Negative: Constitution, Cardiovascular and Respiratory Exam Surgical H&P Exam: Normal: HEENT and Normal: Skin Plan Diagnosis/Plan: Unchanged I have reviewed the history and physical and performed a pertinent physical examination on my patient. No changes have occurred unless specified.
[2021-08-08 12:30] VITALS: BP 110/65; PULSE 93; RESP 18; TEMP 36.3; O2SAT 98; BMI 28.3
[2021-08-08] MEDS: Lactated Ringers 1,000 ML 100 ML IVCONT (12:43)
--- NOTE | 2021-08-08 12:46 | PC.NURSE ---
pts dressing dry and intact to back
[2021-08-08 13:27] LABS: Glucose, Whole Blood 156 mg/dL (60-115)
--- NOTE | 2021-08-08 13:58 | PM.OP ---
Brief Operative Note Date of Service: 08/08/21 Pre-op diagnosis: Nonhealing wound Post-op diagnosis: same Procedure: Wound revision Surgeon: Jon Ho MD Anesthesia: MAC Was an Glass Products Inspector used for this Procedure?: No Estimated blood loss (mL): 2 Pathology: none sent Condition: stable Disposition: PACU
--- NOTE | 2021-08-08 13:59 | P.OP_ITS ---
Operative Note Operative Note Date of Service: 08/08/21 Narrative: Patient presented for superficial wound revision of right-sided IPG pocket site. Patient denied any recent cough, cold, infections or fevers. Informed consent was signed in the preoperative area. An IV was started and 2 g of cefazolin were given intravenously. Right pocket site was marked. Midline and pocket area incisions were examined. The midline incision was noted to be well healed. The right pocket incision continued to be malapproximated with some evidence of wound dehiscence. Patient was taken to the operating room, positioned prone and sedated under MAC anesthesia. Right pocket site was draped using 1000 drapes followed by iodine prep. The site was then draped in sterile fashion. Time-out was performed. A 15 blade was used to incise a concave shaped section of skin around the dehiscent skin wound. The dehiscent tissue was excised using 15 blade up to the hypo dermis until fresh healthy tissue was seen. Electrocautery was then used to obtain hemostasis within the incised layer. 3-0 silk was then used to close the hyper dermis and dermis in an interrupted fashion using deep to superficial and superficial to deep sutures. 4-0 Monocryl was then used to close the subcuticular layer with good approximation of the skin edges. The wound was dressed using Dermabond, Steri- Strips, Telfa and Tegaderm. Patient was flipped supine, awakened and brought to the PACU in stable condition.
[2021-08-08 15:15] VITALS: BP 137/68; PULSE 88; RESP 16; TEMP 36.3; O2SAT 94
[2021-08-08] MEDS: Acetaminophen 325 MG TABLET 650 MG PO (15:25)
[2021-08-08] MEDS: oxyCODONE HCl Immed Release 5 MG TABLET PO (15:25)
[2021-08-08 15:30] VITALS: BP 139/82; PULSE 77; RESP 16; TEMP 36.3; O2SAT 95
== END 2021-08-08 16:02 | disposition home or self-care (01) ==
PROVIDERS: PCP Internal Medicine Geriatric Medicine; Visit Provider Internal Medicine
PROC: (CPT 12020; principal; 2021-08-08 13:40)
DX: T81.31XA Disruption of external operation (surgical) wound, not elsewhere classified, initial encounter (principal); T85.840A Pain due to nervous system prosthetic devices, implants and grafts, initial encounter; Y75.2 Prosthetic and other implants, materials and neurological devices associated with adverse incidents; G89.29 Other chronic pain; R10.32 Left lower quadrant pain; Z96.82 Presence of neurostimulator; Y83.8 Other surgical procedures as the cause of abnormal reaction of the patient, or of later complication, without mention of misadventure at the time of the procedure; Y92.9 Unspecified place or not applicable; E11.9 Type 2 diabetes mellitus without complications; Z79.899 Other long term (current) drug therapy; F17.210 Nicotine dependence, cigarettes, uncomplicated; Z88.8 Allergy status to other drugs, medicaments and biological substances; Z88.1 Allergy status to other antibiotic agents
CPT/HCPCS: 12020; 82947; J0690; J2250; J3010

== ENCOUNTER → 2021-08-17 09:47 | Outpatient (BNVA) | payer OTHER, SELFPAY | PROVIDERS: PCP Internal Medicine Geriatric Medicine; Visit Provider Internal Medicine | DX: R52 Pain, unspecified (principal); Z96.82 Presence of neurostimulator | CPT/HCPCS: 99212 ==

== ENCOUNTER → 2021-08-27 13:51 | Outpatient (BNVA) | payer OTHER, SELFPAY | PROVIDERS: PCP Internal Medicine Geriatric Medicine; Visit Provider Internal Medicine | DX: Z96.82 Presence of neurostimulator (principal) | CPT/HCPCS: Q3014 ==

== ENCOUNTER 2021-09-19 06:27 | Outpatient (REF) | payer OTHER, SELFPAY | END 2021-09-19 06:28 | disposition home or self-care (01) | LOC: HO.RADIR 06:27 | PROVIDERS: Visit Provider Internal Medicine | DX: Z13.89 Encounter for screening for other disorder (principal) ==

== ENCOUNTER 2021-09-19 11:46 | Day surgery (SDC) | payer OTHER, SELFPAY ==
--- NOTE | 2021-09-18 13:14 | P.CONAN_ITS ---
Documented by User: Jeannette Ochoa NP 09/18/21 13:16 HPI - Anesthesia Eval Consult details Narrative: 51yo F for Revision of Left Pocket Site with Poss Resection s/p same 07/2021 with MAC PMFSH Active Problems Active Problems: All Active Problems (Updated 08/27/21 @ 14:34 by Jon Ho MD) Presence of neurostimulator (Acute) Pain in pacemaker pocket (Acute) Chronic LLQ pain (Acute) Past Medical History Medical History Anxiety Cholecystectomy planned Chronic LLQ pain Depression Diabetes Frequent headaches Pain in pacemaker pocket Presence of neurostimulator Family History Family History Father No problems noted. Family history of problems with anesthesia: No Surgical History Surgical History History of appendectomy History of hysterectomy Hx of cholecystectomy Hx of left inguinal hernia repair S/P insertion of spinal cord stimulator History of Problems with Anesthesia: No Social History Social History Household Members: Significant Other Household Members Other:: lives with BF Alcohol intake: never Patient Tobacco Use Status: Current everyday Tobacco user Tobacco use type: Cigarette Cigarettes Per Day: 8 Smoked in Last 30 Days: Yes Use of substances other than those prescribed or required for medical reasons: No Are you DNR?: No Advance Directives: No Advance Directives Information Provided: Yes Recently lost weight without trying: No Nutrition Risks: No Nutritional Risk Patient : No Current occupational status: disabled Meds Allergies Allergy/AdvReac Type Severity Reaction Status Date / Time bupropion [From ZYBAN] Allergy Intermediate HIVES Verified 08/17/21 10:35 clindamycin [CLINDAMYCIN] Allergy Intermediate HIVES Verified 08/17/21 10:35 Home Medications Medication Instructions Recorded Confirmed Last Taken Type citalopram 40 mg tablet (Celexa) 40 mg PO DAILY 02/27/21 03/29/21 Unknown History clonazepam 1 mg tablet (Klonopin) 1 mg PO DAILY 02/27/21 03/29/21 Unknown History mirtazapine 45 mg tablet 45 mg PO BEDTIME 02/27/21 03/29/21 Unknown History quetiapine 100 mg tablet (Seroquel) 100 mg PO BEDTIME 02/27/21 03/29/21 Unknown History tizanidine 4 mg tablet 4 mg PO BEDTIME 02/27/21 03/29/21 Unknown History risperidone 1 mg tablet 1 tab PO QAM 03/15/21 03/29/21 Unknown History risperidone 3 mg tablet 1 tab PO BEDTIME 03/15/21 03/29/21 Unknown History Exam Exam Date and Time: September 18, 2021 1314 Narrative Narrative: Laboratory Tests ?? 05/04/21? 05/04/21 ?? 12:28? 12:28 WBC? ?14.7 H? ? Hgb? ?16.9 H? ? Hct? ?50.7 H? ? Plt Count? ?256? ? Sodium?139 Potassium?4.7? D Chloride?106 Carbon Dioxide?23 BUN?14? D Creatinine?0.92 Assessment and Plan Assessment Anesthesia Assessment: Chart Reviewed Final Anesthetic Review Family History of Problems with Anesthesia: No History of Problems with Anesthesia: No Documented by User: Lilia Marroquin MD 09/19/21 14:45 PMFSH Past Medical History Medical History Anxiety Cholecystectomy planned Chronic LLQ pain Depression Diabetes Frequent headaches Pain in pacemaker pocket Presence of neurostimulator Family History Family History Father No problems noted. Surgical History Surgical History History of appendectomy History of hysterectomy Hx of cholecystectomy Hx of left inguinal hernia repair S/P insertion of spinal cord stimulator Social History Social History Household Members: Significant Other Household Members Other:: lives with BF Alcohol intake: never Patient Tobacco Use Status: Current everyday Tobacco user Tobacco use type: Cigarette Cigarettes Per Day: 8 Smoked in Last 30 Days: Yes Use of substances other than those prescribed or required for medical reasons: No Are you DNR?: No Advance Directives: No Advance Directives Information Provided: Yes Recently lost weight without trying: No Nutrition Risks: No Nutritional Risk Patient : No Current occupational status: disabled Meds Allergies Allergy/AdvReac Type Severity Reaction Status Date / Time bupropion [From ZYBAN] Allergy Intermediate HIVES Verified 08/17/21 10:35 clindamycin [CLINDAMYCIN] Allergy Intermediate HIVES Verified 08/17/21 10:35 Home Medications Medication Instructions Recorded Confirmed Last Taken Type citalopram 40 mg tablet (Celexa) 40 mg PO DAILY 02/27/21 03/29/21 Unknown Histor y clonazepam 1 mg tablet (Klonopin) 1 mg PO DAILY 02/27/21 03/29/21 Unknown History mirtazapine 45 mg tablet 45 mg PO BEDTIME 02/27/21 03/29/21 Unknown History quetiapine 100 mg tablet (Seroquel) 100 mg PO BEDTIME 02/27/21 03/29/21 Unknown History tizanidine 4 mg tablet 4 mg PO BEDTIME 02/27/21 03/29/21 Unknown History risperidone 1 mg tablet 1 tab PO QAM 03/15/21 03/29/21 Unknown History risperidone 3 mg tablet 1 tab PO BEDTIME 03/15/21 03/29/21 Unknown History Exam Airway Mallampati Class: II TM Dist: >3cm Neck ROM: Full Denture: Upper and Lower Heart: rrr Lungs: cta Assessment and Plan Assessment Anesthesia Assessment: Anesthesia Plan Discussed and Chart Reviewed Final Anesthetic Review NPO: Yes ASA Class: II Final Preanesthetic Review: No Changes in Pt Med Stat, Meds/Allgs Chart Reviewed and Consent Obtained/Reviewed Patient Risk: Intermediate Procedure Risk: Intermediate Anesthetic Plan Anesthetic Plan: MAC: Disposition: Standard PACU
[2021-09-19 12:33] VITALS: BMI 34.4
[2021-09-19 12:39] VITALS: BP 129/66; PULSE 86; RESP 16; TEMP 36.3; O2SAT 97
[2021-09-19] MEDS: Lactated Ringers 1,000 ML 100 ML IVCONT (12:55)
[2021-09-19 13:05] LABS: Glucose, Whole Blood 153 mg/dL (60-115)
--- NOTE | 2021-09-19 15:05 | PM.OP ---
Brief Operative Note Date of Service: 09/19/21 Pre-op diagnosis: Left pocket pain Post-op diagnosis: same Procedure: Left pocket resection and site revision Surgeon: Jon Ho MD Anesthesia: GETA and MAC Was an Benefits Technician used for this Procedure?: No Estimated blood loss (mL): 5 Pathology: none sent Condition: stable Disposition: PACU
--- NOTE | 2021-09-19 15:06 | W.PM.OPN ---
Operative Note Operative Note Date of Service: 09/19/21 Narrative: Patient presented for pocket resection and revision of the old left IPG pocket site. Patient denied any recent cough, cold, infections or fevers. Informed consent was signed in the preoperative area. An IV was started and 2 g of cefazolin were given intravenously. Left pocket site was marked. Left pocket area incisions were examined. The old vertical incision was noted to be more tender. Patient was taken to the operating room, positioned prone and anesthetized under MAC. The left pocket site was draped using 1000 drapes followed by ChloraPrep. The site was then draped in sterile fashion. Time-out was performed. A 15 blade was used to incise and open the old vertical scar. Tissue was dissected down to the old pocket area. Electrocautery was then used to obtain hemostasis within the incised layer. Electrocautery was then used to incise and resect fibrotic pocket tissue. During dissection of fibrotic tissue, a lead fragment was seen poking through the soft tissue. This lead was then excised around until we were able to free it from the soft tissue. The lead was noted to be a retained fragment of an old SCS lead. The fragment was approximately 1.5 in in length. The patient's prior CT abdomen pelvis imaging was reviewed at this point to confirm that no further retained fragments were present. CT abdomen pelvis showed a left iliac fossa old retained lead fragment likely indicating the one that we were able to extract. After satisfactory removal of palpable scar tissue, the old pocket site was irrigated with vancomycin solution. 2-0 Vicryl was then used to suture between the layers of the fascia, while biting through the floor of the incised pocket site to obliterate any potential space for fluid collection. 3-0 Vicryl was then used to close the hypodermis and dermis in an interrupted fashion using deep to superficial and superficial to deep sutures. 4-0 Monocryl was then used to close the subcuticular layer with good approximation of the skin edges. The wound was dressed using Dermabond, Steri-Strips, Telfa and Tegaderm. Patient was flipped supine, awakened and brought to the PACU in stable condition. The extracted lead fragment was not sent for pathology.
[2021-09-19 17:19] VITALS: BP 118/76; PULSE 91; RESP 14; TEMP 36.6; O2SAT 93
[2021-09-19 17:34] VITALS: BP 109/57; PULSE 72; RESP 16; O2SAT 97
[2021-09-19] MEDS: Acetaminophen 325 MG TABLET 650 MG PO (17:38)
[2021-09-19] MEDS: oxyCODONE HCl Immed Release 5 MG TABLET PO (17:38)
[2021-09-19 17:45] VITALS: BP 124/61; PULSE 76; RESP 18; O2SAT 98
== END 2021-09-19 18:05 | disposition home or self-care (01) ==
PROVIDERS: PCP Internal Medicine Geriatric Medicine; Visit Provider Internal Medicine
PROC: (CPT 20520; principal; 2021-09-19 13:40)
DX: T85.840A Pain due to nervous system prosthetic devices, implants and grafts, initial encounter (principal); T85.733A Infection and inflammatory reaction due to implanted electronic neurostimulator of spinal cord, electrode (lead), initial encounter; M54.59 Other low back pain; M79.5 Residual foreign body in soft tissue; Y75.3 Surgical instruments, materials and neurological devices (including sutures) associated with adverse incidents; Y92.9 Unspecified place or not applicable; Z96.82 Presence of neurostimulator; E11.9 Type 2 diabetes mellitus without complications; Z79.899 Other long term (current) drug therapy; Z88.1 Allergy status to other antibiotic agents; Z88.8 Allergy status to other drugs, medicaments and biological substances; F17.210 Nicotine dependence, cigarettes, uncomplicated
CPT/HCPCS: 20520; 82947; J0690; J1100; J2250; J2405; J3010

== ENCOUNTER → 2021-09-28 09:23 | Outpatient (BNVA) | payer OTHER, SELFPAY | PROVIDERS: PCP Internal Medicine Geriatric Medicine; Visit Provider Internal Medicine | DX: Z48.89 Encounter for other specified surgical aftercare (principal); F11.90 Opioid use, unspecified, uncomplicated; Z96.82 Presence of neurostimulator; Z79.891 Long term (current) use of opiate analgesic | CPT/HCPCS: 99212 ==

== ENCOUNTER → 2021-10-15 08:25 | Outpatient (BNVA) | payer OTHER, SELFPAY | PROVIDERS: PCP Internal Medicine Geriatric Medicine; Visit Provider Internal Medicine | DX: Z51.81 Encounter for therapeutic drug level monitoring (principal); F11.90 Opioid use, unspecified, uncomplicated; Z96.82 Presence of neurostimulator; Z79.891 Long term (current) use of opiate analgesic | CPT/HCPCS: 99212 ==

== ENCOUNTER 2021-11-02 15:11 | Outpatient (REF) | payer OTHER, SELFPAY ==
--- NOTE | ~2021-11-02 | CT_ITS ---
EXAMINATION: CT CHEST SCREENING CLINICAL INFORMATION: Smoking history. Current smoker. 40 pack-year history. COMPARISON: Previous chest x-rays most recent March 2018 and chest CTA October 2017 TECHNIQUE: Multidetector volumetric CT imaging of the chest is performed without contrast using low dose technique. Additional 2D coronal and sagittal reformatted images and axial 3D maximum intensity projection (MIP) images are generated on the CT workstation. This CT examination was performed using dose optimization techniques as appropriate, variously including the following: *Automated exposure control *Adjustment of mA and/or kV according to patient size (this includes techniques or standardized protocols for targeted exams where dose is matched to indication/reason for exam; i.e. extremities or head) *Use of iterative reconstruction technique DLP: 56 mGy-cm FINDINGS: LUNGS: There is mild paraseptal emphysema. There is scarring or subsegmental atelectasis in the left lower lobe. The lungs are otherwise clear. MEDIASTINUM: There is mild coronary artery calcification. The mediastinum is otherwise normal. PLEURA: There is no pleural effusion. No pleural mass or thickening. AXILLA: No lymphadenopathy. UPPER ABDOMEN: Unremarkable OSSEOUS STRUCTURES: Spinal stimulator lead is seen in the lower thoracic spinal canal. CT/CT lung screening IMPRESSION: Mild paraseptal emphysema. Minimal scarring or subsegmental atelectasis in the left lower lobe. Mild coronary artery calcification. ASSESSMENT: Lung-RADS category 2: Benign RECOMMENDATION: Annual low-dose chest CT follow-up.
== END 2021-11-02 15:12 | disposition home or self-care (01) ==
LOC: HO.CT 15:11
PROVIDERS: PCP Internal Medicine Geriatric Medicine; Visit Provider Physician Assistant Medical
DX: Z12.2 Encounter for screening for malignant neoplasm of respiratory organs (principal); F17.210 Nicotine dependence, cigarettes, uncomplicated
CPT/HCPCS: 71271; G0296

== ENCOUNTER → 2021-12-03 12:47 | Outpatient (BNVA) | payer OTHER, SELFPAY | PROVIDERS: PCP Internal Medicine Geriatric Medicine; Visit Provider Internal Medicine | DX: F11.20 Opioid dependence, uncomplicated (principal); Z96.82 Presence of neurostimulator; Z79.899 Other long term (current) drug therapy | CPT/HCPCS: 99212 ==

== ENCOUNTER → 2021-12-17 10:42 | Outpatient (BNVA) | payer OTHER, SELFPAY | PROVIDERS: PCP Internal Medicine Geriatric Medicine; Visit Provider Internal Medicine | DX: F11.20 Opioid dependence, uncomplicated (principal); Z51.81 Encounter for therapeutic drug level monitoring; Z79.899 Other long term (current) drug therapy; Z96.82 Presence of neurostimulator | CPT/HCPCS: 99212 ==

== ENCOUNTER → 2022-01-07 14:15 | Outpatient (BNVA) | payer OTHER, SELFPAY | PROVIDERS: PCP Internal Medicine Geriatric Medicine; Visit Provider Internal Medicine | DX: Z51.81 Encounter for therapeutic drug level monitoring (principal); Z79.891 Long term (current) use of opiate analgesic | CPT/HCPCS: 99212 ==

== ENCOUNTER → 2022-02-22 09:51 | Outpatient (BNVA) | payer OTHER, SELFPAY | PROVIDERS: PCP Internal Medicine Geriatric Medicine; Visit Provider Internal Medicine | DX: Z79.891 Long term (current) use of opiate analgesic (principal); Z96.82 Presence of neurostimulator | CPT/HCPCS: 99212 ==

== ENCOUNTER 2025-01-17 08:46 | Outpatient (AMB) | payer OTHER, SELFPAY ==
--- OUTSIDE RECORDS SUMMARY | 2025-01-17 09:15 | XMS_ITS | Clinical Summary ---
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 Name Role Phone Unavailable Primary Care Provider Unavailabl e Encounters Date Type Department Care Team Description 01/11/2025 Telephone [facility] [address] [place] [phone] Hakan Hatch MD from Last 3 Months Social History Tobacco Use Types Packs/Day Years Used Date Smoking Tobacco: Never Assessed Comments Unknown Sex and Gender Information Value Date Recorded Sex Assigned at Female 09/23/2022 10:33 AM EDT Legal Sex Female 10:33 AM EDT Gender Identity Female 09/23/2022 10:33 AM EDT Sexual Orientation Straight 09/23/2022 10 :33 AM EDT Last Filed Vital Signs Vital Sign Reading Time Taken Comments Blood Pressure 130/79 11/29/2021 12:01 AM EST Pulse 88 11/29/2021 12:01 AM EST Temperature - - Respiratory Rate - - Oxygen Saturation - - Inhaled Oxygen Concentration - - Weight 84.5 kg (186 lb 3.2 oz) 11/29/2021 12:01 AM EST Height 154.9 cm (5' 1 ) 11/29/2021 12:01 AM EST Body Mass Index 35.18 11/29/2021 12:01 AM EST Plan of Treatment Upcoming Encounters Date Type Department Care Team (Late st Contact Info) Description 03/29/2025 10:15 AM EDT Office Visit [facility] [address] [place] [address] [phone] Hakan Hatch MD [address] [place] [phone] Health Maintenance Due Date Last Done Comments CT Colonography 1968 Colonoscopy 1968 Colorectal Cancer Screening 1968 Depression Screening 1968 FIT DNA/Cologuard 1968 FIT 1968 FOBT 1968 HIV Screening 1968 Lipid Panel 1968 SDOH Screening 1968 Sigmoidoscopy 1968 Alcohol/Substance Use Screening 1980 Tobacco Screening 1980 Hepatitis C Screening 1986 Hepatitis A Vaccines (1 of 2 - Risk 2-dose series) 1987 Hepatitis B Vaccines (1 of 3 - 19+ 3-dose series) 1987 Pap Smear 1989 Cervical Cancer Screening 1998 HPV/Cotest 1998 Zoster Vaccines (1 of 2) 2018 Pneumococcal Vaccine: 50+ Years (2 of 2 - PCV) 09/14/2020 09/14/2019 Mammogram 10/25/2023 10/25/2021, 09/24, 05/05/2019, Additional history exists COVID-19 Vaccine ( - season) 2024 11/15/2021, 03/02/2021, 02/02/2021 Influenza Vaccine (#1) 2024 , 10/05/2020, 08/05/2019 DTaP/Tdap/Td Vaccines (2 - Td or Tdap) 10/05/2030 10/05/2020 RSV Patients and Patients Aged 60 years or older (1 - 1-dose 75+ series) 2043 HIB Vaccines Aged Out No longer eligi ble based on patient's age to complete this topic HPV Vaccines Aged Out No longer eligi ble based on patient's age to complete this topic IPV Vaccines Aged Out No longer eligi ble based on patient's age to complete this topic Meningococcal Vaccine Aged Out No anival onofre eligible based on patient's age to complete this topic RSV under 20 months Aged Out No longe r eligible based on patient's age to complete this topic Rotavirus Vaccines Aged Out No longer eligible based on patient's age to complete this topic Procedures Procedure Name Priority Date/Time Associated Diagnosis Comments BI MAMMOGRAM SCREENING BILATERAL Routine 10/25/2021 1:09 PM EST from Last 3 Months or Most Recently Relevant to Health Maintenance Results * Req: Mammogram (Screening); Bilateral (10/25/2021 1:09 PM EST) Anatomical Region Laterality Modality Breast Bilateral Mammography 10/25/2021 1:09 PM EST Narrative 10/25/2021 1:10 PM EST Refer to the Notes tab for result details [facility] Procedure: Req: Mammogram (Screening); Bilateral Procedure Note Provider, MD Tabatha - 02/16/2023 Refer to the Notes tab for result details [facility] Procedure: Req: Mammogram (Screening); Bilateral Hakan Name IMG BI PROCEDURES Final Result from Last 3 Months or Most Recently Relevant to Health Maintenance Insurance
--- OUTSIDE RECORDS SUMMARY | 2025-01-17 09:15 | XMS_ITS | Encounter Summary ---
Author Organization [employer] [facility] Address [address] [place] [address] Care Team Providers Care Trade Show Coordinator Name Role Phone Unavailable Primary Care Provider Unavailabl e Encounter Details Date Type Department Care Team (Late st Contact Info) Description 01/11/2025 Telephone [facility] [address] [place], [place] [phone] Hakan Hatch MD [address] [place] [phone] Social History Tobacco Use Types Packs/Day Years Used Date Smoking Tobacco: Never Assessed Comments Unknown Sex and Gender Information Value Date Recorded Sex Assigned at Female 09/23/2022 10:33 AM EDT Legal Sex Female 10:33 AM EDT Gender Identity Female 09/23/2022 10:33 AM EDT Sexual Orientation Straight 09/23/2022 10 :33 AM EDT documented as of this encounter Miscellaneous Notes * Telephone Encounter - Debra Coronel - 01/11/2025 2:46 PM EST TC placed to patient for scheduling of new patient visit. Agreed to 03/29/25 with Medical Conditions: Diabetes Back pain (has back pain pump) Anxiety Previous pt of Dr. Hatch. Reestablishing care after [place] out of state Last seen 1 year ago in [place] App[employer]nt reminder and release form sent via mail . documented in this encounter Plan of Treatment Upcoming Encounters Date Type Department Care Team (Late Contact Info) Description 03/29/2025 10:15 AM EDT Office Visit [facility] [address] [place] [phone] Name, MD Hakan [address] [facility] [place], [place] [phone] documented as of this encounter Visit Diagnoses Not on filedocumented in this encounter
--- NOTE | 2025-01-17 09:37 | MHC.OFFVIS ---
Vital Signs 01/17/25 09:40 Height 5 ft 1 in Weight 170 lb BMI 32.1 BP 114/61 Blood Pressure Location Lt brachial Position Sitting Pulse 92 Pulse Source Pulse Oximeter Pulse Oximetry (%) 95 Oxygen Delivery Method Room Air Intake Visit Reasons: FU for pump fill decision review Clinical Documentation Spec Required: No Allergies bupropion [From ZYBAN] Allergy (Intermediate, Verified 01/17/25 09:37) HIVES clindamycin [CLINDAMYCIN] Allergy (Intermediate, Verified 01/17/25 09:37) HIVES Medication List - Last Reconciled 01/17/25 by Jaja Diez, CHERYL clonazepam (Klonopin) 1 mg PO ONCE escitalopram oxalate (Lexapro) 20 mg PO DAILY mirtazapine 45 mg PO BEDTIME oxycodone-acetaminophen 5-325 mg (Percocet) 1 tab PO BID PRN 30 days quetiapine (Seroquel) 100 mg PO BEDTIME HPI HPI FU for pump fill decision review: Details: History of Present Illness The patient is a 55-year-old female presenting with concerns related to the management of her intrathecal pain pump, specifically regarding medication refill scheduling and potential changes in medication. Her history includes the removal of a spinal stimulator and subsequent intrathecal pump implantation approximately one year ago. This procedure was performed by Dr. Kole Saab in [place]. Since the pump implantation, the patient has effectively managed her chronic pain using intrathecal morphine. She no longer experiences the need for oral Percocet, suggesting improved pain control. The patient utilizes self-administered boluses, typically five per day, to control her pain symptoms. Despite an initial concern regarding the refill schedule, it was determined that her pump contained sufficient medication, allowing for adjustments in scheduling. Further, the patient expressed interest in switching from morphine to hydromorphone for better pain management. Pain Description - Chronic pain managed with intrathecal morphine administered through a pump. - Patient self-administers 5 out of 6 boluses of 0.07 mg per day. - Discontinued use of oral Percocet. - Pain control facilitated through intrathecal morphine; concern about refill timing expressed. Physical Exam - Intrathecal pump assessment- More than half full, no immediate need for refill. Results Pain Management - Affect: Patient expresses satisfaction with pain management improvement following pump use. - Analgesia: Uses intrathecal morphine; no longer on oral Percocet. - Adverse Effects: None reported, well-tolerated therapy. - Activities of Daily Living: Improved with intrathecal pain management; no noted interference. - Aberrant Drug Related Behaviors: None reported or observed. 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 Social History (Updated 11/02/21 @ 15:11 by Ai Valle PA-C) Household Members: Significant Other Household Members Other:: lives with BF Alcohol intake: never Comment: see assessments Patient Tobacco Use Status: Current everyday Tobacco user Tobacco use type: Cigarette Cigarettes Per Day: 10 Years Smoked: onset 11, 1/2-3/4ppd x 40yrs - 20+PYH Current occupational status: disabled Physical Exam Vital Signs: Last Vital Signs Pulse 92 01/17/25 09:40 BP 114/61 01/17/25 09:40 Pulse Ox 95 01/17/25 09:40 Oxygen Delivery Method Room Air 01/17/25 09:40 BMI result Body Mass Index 32.1 Assessment & Plan Assessment & Plan (1) Presence of intrathecal pump: Code(s): Z97.8 - Presence of other specified devices Category: Medical (2) Chronic pain syndrome: Code(s): G89.4 - Chronic pain syndrome Category: Medical Plan Plan Patient was informed and verbally consented to the use of an ambient scribe for clinic note documentation during this visit. 1. Intrathecal Pump Management Intrathecal pump functioning well; more than half full. Plan to refill in the third week of January. Exploring transition to hydromorphone to potentially improve pain management outcomes. 2. Morphine Management For Chronic Pain Transition from morphine to hydromorphone based on patient preference for better management of pain symptoms. Follow-up required to monitor impact on analgesia and ensure proper dosing. Discussion Notes During our discussion, I informed the patient about the current status of her intrathecal pump and the sufficient capacity that extends the need for a refill. We discussed switching from morphine to hydromorphone intrathecally to optimize her pain management. I explained potential differences in effect and how we would manage the transition with appropriate monitoring. Our plan includes scheduling a refill in the third week of January and exploring the transition to hydromorphone. Follow-ups and adjustments will be based on therapeutic response, ensuring continuity in addressing her chronic pain needs. Patient Instructions - Your intrathecal pump is currently more than half full, allowing flexibility in refill scheduling. - We have planned your next refill for the third week of January. We will contact you to confirm the exact date. - We discussed potentially switching from morphine to hydromorphone for better pain control; please consider this option, and we will make arrangements as needed. - Report any new symptoms or concerns promptly to our office. - Attend your scheduled appointments to ensure proper management of your pain regimen. Coding Level of Care Code Est Pt Level 4 (62685) Diagnoses Presence of intrathecal pump Z97.8 Chronic pain syndrome G89.4
[2025-01-17 09:40] VITALS: BP 114/61; PULSE 92; O2SAT 95; BMI 32.1
== END 2025-01-17 11:06 | disposition home or self-care (01) ==
PROVIDERS: PCP Internal Medicine Geriatric Medicine; Visit Provider Internal Medicine
DX: G89.4 Chronic pain syndrome (principal); Z97.8 Presence of other specified devices
CPT/HCPCS: 99214

== ENCOUNTER → 2025-01-17 08:46 | Outpatient (BNVA) | payer OTHER, SELFPAY | PROVIDERS: PCP Internal Medicine Geriatric Medicine; Visit Provider Internal Medicine | DX: G89.4 Chronic pain syndrome (principal); Z97.8 Presence of other specified devices | CPT/HCPCS: 99212 ==

== ENCOUNTER 2025-02-09 10:10 | Outpatient (AMB) | payer MEDICARE, MEDICAID, SELFPAY ==
--- NOTE | 2025-02-09 10:19 | MHC.OFFVIS ---
Vital Signs 02/09/25 10:21 Height 5 ft 1 in Weight 171 lb BMI 32.3 BP 165/65 H Blood Pressure Location Lt brachial Position Sitting Respiration 16 Pulse 91 Pulse Source Pulse Oximeter Pulse Oximetry (%) 96 Oxygen Delivery Method Room Air Intake Visit Reasons: ITDD Refill Security Flex Utility Officer Required: No Environmental Health Manager: Environmental Health Manager Present Accompanied by: Benson Strange Allergies bupropion [From ZYBAN] Allergy (Intermediate, Verified 02/09/25 10:22) HIVES clindamycin [CLINDAMYCIN] Allergy (Intermediate, Verified 02/09/25 10:22) HIVES Medication List - Last Reconciled 02/09/25 by Mariana Tanner LPN atorvastatin 80 mg PO BEDTIME clonazepam (Klonopin) 1 mg PO ONCE escitalopram oxalate (Lexapro) 20 mg PO DAILY mirtazapine 45 mg PO BEDTIME quetiapine (Seroquel) 100 mg PO BEDTIME semaglutide (Ozempic) 1 mg subcut QWEEK HPI HPI ITDD Refill: Details: History of Present Illness The patient is a 55-year-old female presenting with the need for reevaluation and refill of her intrathecal pump medication. The current regimen of morphine in her pump is reportedly causing issues. Over the last week, the patient has noticed her treatment becoming less effective, as indicated by the recurring need for boluses. Discussions emphasized the transition from morphine to a slower-release medication. The patient currently uses the pump for 6 boluses per day, previous dosage noted at 0.0699 mg per bolus. Understanding regarding medication time to flush out of her system was clarified, with no reported alcohol consumption, potentially impacting treatment. Frequent use requires precise tracking and synchronization with prescribed refill schedules. Pain Description - Chronic, ongoing pain managed through an intrathecal pump. - Primary location: Buttock area with pump placement. - Pain onset: Weeks prior to visit with increasing frequency. - Exacerbating factors: Inadequate current morphine regimen. - Previous and suggested intervention: Transitioning from morphine to alternative slower-releasing medication. - Associated problem: Frequent need for pump boluses. Physical Exam Results Pain Management - Affect: Impact on patient's comfort; ongoing management by pump refill. - Analgesia: Using 6 boluses daily; recent difficulty with current morphine regimen. - Adverse Effects: None explicitly reported. - Activities of Daily Living: Requires correction through pump refill appointment for adequate daily functioning. - Aberrant Drug Related Behaviors: Not apparent or reported during the conversation. Procedure: Intrathecal pump refill - Signed consent obtained for intrathecal pump refill. - Procedure description: Pump site prepared with Cloraprep; 20-gauge needle used to access port. 15 mL of morphine 1 mg/mL removed, discarded. Administered 0.5 mg/mL hydromorphone using two 20mL syringes from [facility]; delivery ensured through interval aspiration. - Post-procedure: Needle removed, pump settings revised, delivery schedule set for continuous infusion with additional bolus options. See scanned report for more details. 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 Social History (Updated 11/02/21 @ 15:11 by Ai Valle PA-C) Household Members: Significant Other Household Members Other:: lives with BF Alcohol intake: never Comment: see assessments Patient Tobacco Use Status: Current everyday Tobacco user Tobacco use type: Cigarette Cigarettes Per Day: 10 Years Smoked: onset 11, 1/2-3/4ppd x 40yrs - 20+PYH Current occupational status: disabled Physical Exam Vital Signs: Last Vital Signs Pulse 91 02/09/25 10:21 Resp 16 02/09/25 10:21 BP 165/65 H 02/09/25 10:21 Pulse Ox 96 02/09/25 10:21 Oxygen Delivery Method Room Air 02/09/25 10:21 BMI result Body Mass Index 32.3 Assessment & Plan Assessment & Plan (1) Chronic pain syndrome: Code(s): G89.4 - Chronic pain syndrome Category: Medical (2) Presence of intrathecal pump: Code(s): Z97.8 - Presence of other specified devices Category: Medical Plan Plan The current morphine regimen has shown inefficacy due to chronic complaints noted by the patient, warranting a transition to hydromorphone through current procedural adjustments. She is status post tied to be refilled with Dilaudid 0.5 milligrams/mL. Ongoing symptom observation points will determine if revisits are required for further pump programming modification. Immediate post-procedure observations confirmed patient stability and understanding of the new regimen implications, with openness for earlier consultations predicated on recurrent symptoms. Patient was informed and verbally consented to the use of an ambient scribe for clinic note documentation during this visit. Discussion Notes During the visit, we discussed issues surrounding her current morphine relief regiment, leading to a decision to alter her management using a hydromorphone protocol. I offered detailed counseling on procedural steps, including the risks and benefits of switching medications, emphasizing close monitoring. The patient consented to the intrathecal pump refill procedure after understanding associated risks. The conversation encapsulated possible pump settings adjustment plus future oversight for regimen adaptation. Suggested follow-up guidance included a promised return in three months unless changes in her condition necessitate an earlier appointment. Patient Instructions - Follow-up in three months or sooner if pain persists or worsens. - Monitor bolus usage and pain levels daily. - Reach out if experiencing unexpected side effects or changes. - Maintain awareness of pump activity across refills. Coding Level of Care Code Procedure Only Diagnoses Chronic pain syndrome G89.4 Presence of intrathecal pump Z97.8
[2025-02-09 10:21] VITALS: BP 165/65; PULSE 91; RESP 16; O2SAT 96; BMI 32.3
== END 2025-02-09 10:50 | disposition home or self-care (01) ==
PROVIDERS: PCP Internal Medicine Geriatric Medicine; Visit Provider Internal Medicine
DX: G89.4 Chronic pain syndrome (principal); Z97.8 Presence of other specified devices
CPT/HCPCS: 62370

== ENCOUNTER → 2025-02-09 10:10 | Outpatient (BNVA) | payer MEDICARE, SELFPAY | PROVIDERS: PCP Internal Medicine Geriatric Medicine; Visit Provider Internal Medicine | DX: Z45.89 Encounter for adjustment and management of other implanted devices (principal); G89.4 Chronic pain syndrome; Z79.891 Long term (current) use of opiate analgesic | CPT/HCPCS: 62370 ==

== ENCOUNTER 2025-04-08 08:42 | Outpatient (REF) | payer MEDICARE, SELFPAY ==
--- OUTSIDE RECORDS SUMMARY | 2025-04-08 08:56 | XMS_ITS | Encounter Summary ---
Author Organization [employer] Address [address] [facility] [address] [place] [address] Care Team Providers Care Truss Assembler Name Role Phone Name, Hakan KATE Primary Care Provider [phone] Reason for Visit * Reason Comments Med Refill Encounter Details Date Type Department Care Team ([facility] st Contact Info) Description 04/05/2025 Refill [facility] [address] [place], [place] [phone] Name, MD Hakan [address] [place], [place] [phone] Social History Tobacco Use Types Packs/Day Years Used Date Smoking Tobacco: Every Day Cigarettes Passive Smoke Exposure: Current Smokeless Tobacco: Never Alcohol Use Standard Drinks/Week Comments Never 0 (1 standard drink = 0.6 oz pur e alcohol) Depression Answer Date Recorded Patient Health Questionnaire-9 Score 3 03/29/2025 Patient Health Questionnaire-9 Score 3 03/29/2025 Last PHQ-9: Questionnaire Data Not on file 0 03/29/2025 Housing Stability Answer Date Recorded What is your housing situation today? I have betty nevarez 03/16/[address] you li ve. Do you have problems with any of the following? None of the above 03/16/2025 Food Insecurity Answer Date Recorded Within the past 12 months, y ou worried that your food would run out before you got money to buy more: Never True 03/16/2025 Within the past 12 months,th e food you bought just didn't last and you didn't have enough money to get more: Never True Transportation Answer Date Recorded In the past 12 months, has l ack of transportation kept you from medical appts, meetings, work or from getting things needed for daily living? No 03/16/2025 Utilities Answer Date Recorded In the past 12 months, has t he electric, gas, oil or water company threatened to shut off services in your home? No 03/16/2025 Depression Answer Date Recorded Patient Health Questionnaire-2 Score 2 03/29/2025 Internet Access Answer Date Recorded Internet Access Q1 Yes 03/16/2025 Internet Access Q2 Not on file 03/16/2025 Comments Unknown Sex and Gender Information Value Date Recorded Sex Assigned at Female 09/23/2022 10:33 AM EDT Legal Sex Female 10:33 AM EDT Gender Identity Female 09/23/2022 10:33 AM EDT Sexual Orientation Straight 09/23/2022 10 :33 AM EDT documented as of this encounter Plan of Treatment Upcoming Encounters Date Type Department Care Team (Late st Contact Info) Description 04/15/2025 11:00 AM EDT Clinical Support [facility] [address] [place] [address] 07/21/2025 9:00 AM EDT Office Visit [facility] [address] [place] [address] NameHakan MD [address] [place] [address] 08/01/2025 9:00 AM EDT Office Visit [facility] [address] [place] [address] Jesus, Nadiya, OD [address] [place] [address] documented as of this encounter Visit Diagnoses Not on filedocumented in this encounter Additional Health Concerns Assessment Noted Time PHQ-9 Depression Total Score: 3 03/29/20 11:01 AM EDT documented as of this encounter Care Teams Truss Assembler Relationship Specialty Start Date End Date Hakan Hatch MD [address] [place] [id number] PCP - General Internal Medicine 03/29/25 documented as of this encounter
--- OUTSIDE RECORDS SUMMARY | 2025-04-08 08:56 | XMS_ITS | Clinical Summary ---
Author Organization [employer] Address [address] [facility] 7[address] [place] [address] Care Team Providers Care Paper Bag Inspector Name Role Phone Name, Hakan KATE Primary Care Provider [phone] Allergies Active Allergy Reactions Criticality Noted Date Comments Bupropion 08/07/2018 Clindamycin 08/07/2018 Medications clonazePAM (KlonoPIN) 0.5 MG tablet TAKE 1/2 TABLET BY MOUTH DAILY NEEDED FOR SEVERE ANXIETY. NOT MORE THAN 1 TABLET A DAY 03/02/20 25 Active escitalopram (Lexapro) 20 MG tablet Take 20 mg by mouth in the morning. 03/08/20 25 Active mirtazapine (Remeron) 45 MG tablet Take 45 mg by mouth at bedtime. 03/08/20 25 Active QUEtiapine (SEROquel) 100 MG tablet Take 100 mg by mouth at bedtime. 03/08/20 25 Active atorvastatin (Lipitor) 80 MG tablet Take 1 tablet (80 mg) by mouth Once per day. 03/29/20 25 026 Active clotrimazole (Lotrimin) 1 % creamIndicatio ns:Tinea corporis Apply topically 2 times daily for 28 days. 30 g 5 03/29/20 25 025 Active FREESTYLE LITE test stripIndicatio ns:Type 2 diabetes mellitus treated without insulin ([facility]) Use to test blood sugar 1 times daily 100 each 12 03/29/20 25 026 Active Lancets miscIndication s:Type 2 diabetes mellitus treated without insulin ([facility]) Use to test blood sugar 1 times daily 100 each 03/29/20 25 Active Alcohol Swabs 70 % padsIndication s:Type 2 diabetes mellitus treated without insulin ([facility]) Use to test blood sugar 1 times daily 100 each 03/29/20 25 Active Blood Glucose Monitoring Suppl (FreeStyle Morse Lite) w/Device kitIndications :Type 2 diabetes mellitus treated without insulin ([facility]) Use to test blood sugar 1 times daily 1 kit 03/29/20 25 Active tiZANidine (Zanaflex) 2 MG tablet TAKE 1 TABLET(2 MG) BY MOUTH EVERY 8 HOURS FOR UP TO 10 DAYS NEEDED FOR MUSCLE SPASMS 30 tablet 04/05/20 25 Active tiZANidine (Zanaflex) 2 MG tablet Take 1 tablet (2 mg) by mouth every 8 (eight) hours if needed for muscle spasms for up to 10 days. 30 tablet 03/29/20 25 025 Discontinued Active Problems Problem Noted Date Diagnosed Date Presence of implanted infusion pump 03/29/2025 Overview (03/29/2025): She has implanted Dilaudid infusion pump [place] [facility] [place] 2023 Mobile c[employer]um 03/28/2025 Type 2 diabetes mellitus 03/20/2020 Steatosis of liver 12/25/2018 LFT elevation 06/23/2018 Anxiety 04/13/2018 Chronic low back pain 04/13/2018 Depressive disorder 04/13/2018 Overview (03/29/2025): Prescribing psychiatric provider [facility] [place] H/O: hysterectomy 04/13/2018 History of appendectomy 04/13/2018 Migraine 04/13/2018 Spinal cord stimulator status 04/13/2018 Overview (03/29/2025): This was removed in 2023 Resolved Problems Problem Noted Date Diagnosed Date Resolved Date Herpes zoster without complication 06/23/2018 03/29/2025 Encounters Date Type Department Care Team Description 04/05/2025 Refill [facility] [address] [place] [address] Hakan Hatch MD 03/31/2025 Telephone [facility] [address] [place] [address] Dayna Prescott [place] june recalls 03/31/2025 Telephone [facility] [address] [place] [address] Hakan Hatch MD Durable Medical Equipment 03/29/2025 10:15 AM EDT Office Visit [address] [address] Hakan Hatch MD Type 2 diabetes mellitus treated without insulin ([facility]) (Primary Dx); Chronic midline low back pain, unspecified whether sciatica present; Presence of implanted infusion pump; Depression with anxiety; Tinea corporis 03/29/2025 Travel 03/28/[address] [address] Gricelda Quinonez [place] Chart Prep 03/16/2025 Patient Outreach [facility] [address] [place], [place] [phone] Hakan Hatch MD Pre-visit Planning (SDOH negative, Tobacco screening negative. ) 02/25/2025 Telephone [facility] [address] [place] [address] Hakan Hatch MD Durable Medical Equipment 01/18/2025 Patient Outreach [address] [address] Hakan Hatch MD Care Coordination ([facility] outreach for SDOH PT-1 and food needs-referral completed /) 01/11/[address] [address] Hakan Hatch MD from Last 3 Months Immunizations Immunization Administration Dates Next Due Influenza injectable quadriv alent IIV4 with preservative 08/05/2019 Influenza injectable quadrivalent preservative f ree 08/15/2021,10/05/2020 Pneumococcal Polysaccharide PPSV23 09/14/2019 Tdap 10/05/2020 Social History Tobacco Use Types Packs/Day Years Used Date Smoking Tobacco: Every Day Cigarettes Passive Smoke Exposure: Current Smokeless Tobacco: Never Tobacco Cessation:Ready to Q uit: Not Asked; Counseling Given: Not Answered Alcohol Use Standard Drinks/Week Comments Never 0 (1 standard drink = 0.6 oz pur e alcohol) Depression Answer Date Recorded Patient Health Questionnaire-9 Score 3 03/29/2025 Patient Health Questionnaire-9 Score 3 03/29/2025 Last PHQ-9: Questionnaire Data Not on file 0 03/29/2025 Housing Stability Answer Date Recorded What is your housing situation today? I have betty sing 03/16/[address] you li [...] Sign Reading Time Taken Comments Blood Pressure 104/60 03/29/2025 10:15 AM EDT Pulse 79 03/29/2025 10:15 AM EDT Temperature 36.8 ??C (98.2 ??F) 03/29/2025 10:15 AM E DT Respiratory Rate 18 03/29/2025 10:15 AM EDT Oxygen Saturation 98% 03/29/2025 10:15 AM EDT Inhaled Oxygen Concentration - - Weight 80.9 kg (178 lb 6.4 oz) 03/29/2025 10:15 AM EDT Height 154.9 cm (5' 1 ) 03/29/2025 10:15 AM EDT Body Mass Index 33.71 03/29/2025 10:15 AM EDT Plan of Treatment Upcoming Encounters Date Type Department Care Team (Late st Contact Info) Description 04/15/2025 11:00 AM EDT Clinical Support [facility] [address] [place] [address] 07/21/2025 9:00 AM EDT Office Visit [facility] [address] [place] [address] Name, MD Hakan [address] [place] [address] 08/01/2025 9:00 AM EDT Office Visit [facility] [address] [place] [address] Jesus, Nadiya, OD [address] [place] [address] Health Maintenance Due Date Last Done Comments CT Colonography 1968 Colonoscopy 1968 Colorectal Cancer Screening 1968 FIT DNA/Cologuard 1968 FIT 1968 FOBT 1968 HIV Screening 1968 Lipid Panel 1968 Sigmoidoscopy 1968 Diabetes: Foot Exam 1978 Eye Exam 1978 Hepatitis C Screening 1986 Diabetes: Urine Protein Screening 1987 Hepatitis A Vaccines (1 of 2 - Risk 2-dose series) 1987 Hepatitis B Vaccines (1 of 3 - 19+ 3-dose series) 1987 Pap Smear 1989 Cervical Cancer Screening 1998 HPV/Cotest 1998 Zoster Vaccines (1 of 2) 2018 Pneumococcal Vaccine: 50+ Years (2 of 2 - PCV) 09/14/2020 09/14/2019 Mammogram 10/25/2023 10/25/2021, 09/24, 05/05/2019, Additional history exists COVID-19 Vaccine ( season) 2024 11/15/2021, 03/02/2021, 02/02/2021 Influenza Vaccine (#1) 2024 , 10/05/2020, 08/05/2019 Diabetes: Hemoglobin A1C 09/29/2025 03/29/2025, 01/22 Alcohol/Substance Use Screening 03/29/2026 03/29/2025 Depression Screening 03/29/2026 03/29/2025, 03/29/20 SDOH Screening 03/29/2026 03/29/2025 Tobacco Screening 03/29/2026 03/29/2025 DTaP/Tdap/Td Vaccines (2 - Td or Tdap) [...] patient's age to complete this topic Meningococcal B Vaccine Aged Out No l onger eligible based on patient's age to complete [...] Procedure Name Priority Date/Time Associated Diagnosis Comments POCT GLYCATED HEMOGLOBIN, TOTAL Routine 03/29/2025 10:35 AM EDT Type 2 diabetes mellitus treated without insulin ([facility]) POCT GLUCOSE Routine 03/29/2025 10:34 AM EDT Type 2 diabetes mellitus treated without insulin ([facility]) BI MAMMOGRAM SCREENING BILATERAL Routine 10/25/2021 1:09 PM EST from Last 3 Months or Most Recently Relevant to Health Maintenance Results * (ABNORMAL) POCT HGB A1C (03/29/2025 10:35 AM EDT) Hemoglobin A1C 6.5(A) 4.0 - 6.0 % QC Media Lot # [id number] Lot# Expiration Date Blood 03/29/2025 10:3 5 AM EDT us Hakan Name MD POINT OF CARE TEST ENTER/EDIT OR DERABLES Final Result * POCT Glucose (03/29/2025 10:34 AM EDT) Glucose Blood, POC 161 60 - 200 mg/dL QC Media Lot # [id number] Lot# Expiration Date [id number] Blood Capillary blood specimen / Unknown 03/29/2025 10:34 AM EDT Hakan Name POINT OF CARE TEST ENTER/EDIT OR DERABLES Final Result * Req: Mammogram (Screening); Bilateral (10/25/2021 1:09 PM EST) Anatomical Region Laterality Modality Breast Bilateral Mammography 10/25/2021 1:09 PM EST Narrative 10/25/2021 1:10 PM EST Refer to the Notes tab for result details [facility] Procedure: Req: Mammogram (Screening); Bilateral Procedure Note Provider, MD Tabatha - 02/16/2023 Refer to the Notes tab for result details Legacy Procedure: Req: Mammogram (Screening); Bilateral Hakan Hatch MD IMG BI PROCEDURES Final Result from Last 3 Months or Most Recently Relevant to Health Maintenance Insurance [facility] DUAL COMPLETE Care Teams Paper Bag Inspector Relationship Specialty Start Date End Date Name, MD Hakan [address] [place] [id number] PCP - General Internal Medicine 03/29/25
--- OUTSIDE RECORDS SUMMARY | 2025-04-08 08:56 | XMS_ITS | Encounter Summary ---
Author Organization [employer] Address [address] [facility] 7t [place] [address] Care Team Providers Care Lpn Name Role Phone NameHakan MD Primary Care Provider [phone] Encounter Details Date Type Department Care Team (Late st Contact Info) Description 01/11/[address] [phone] Hakan Hatch MD [address] [place] [phone] Social History Tobacco Use Types Packs/Day Years [...] state Last seen 1 year ago in [place] Apptmnt reminder and release form sent via mail . documented in this encounter Plan of Treatment Upcoming Encounters Date Type Department Care Team (Late st Contact Info) Description 04/15/2025 11:00 AM EDT Clinical Support [address] [address] 07/21/2025 9:00 AM EDT Office Visit [facility] [address] [place] [address] Name, MD Hakan [address] [place] [address] 08/01/2025 9:00 AM EDT Office Visit [facility] [address] [place] [address] Nadiya Lee, OD [address] [place] [address] documented as of this encounter Visit Diagnoses Not on filedocumented in this encounter Care Teams Lpn Relationship Specialty Start Date End Date Name, MD Hakan [address] [place] [address] PCP - General Internal Medicine 03/29/25 documented as of this encounter
--- OUTSIDE RECORDS SUMMARY | 2025-04-08 08:56 | XMS_ITS | Encounter Summary ---
Author Organization [employer] Address [address] [facility] 7t [place] [address] Care Team Providers Care Vacuum Cleaner Mechanic Name Role Phone Name, Hakan KATE Primary Care Provider [phone] Reason for Visit * Reason Onset Date Comments Durable Medical Equipment 03/31/2025 Encounter Details Date Type Department Care Team ([facility] st Contact Info) Description 03/31/2025 Telephone [facility] [address] [place], [place] [phone] Name, MD Hakan [address] [place] [address] Durable Medical Equipment Social History Tobacco Use Types Packs/Day Years [...] encounter Miscellaneous Notes * Telephone Encounter - Marti Sanchez - 04/04/2025 11:01 AM EDT Correction to previous note: signed Rx received, faxed to [place] @ [phone] as requested. * Telephone Encounter - Marti Sanchez - 04/01/2025 3:32 PM EDT DME RX for Cane and Shower chair generated and sent to pcp for signature via [employer]. Once signed,will be faxed to [facility] and scanned into media. * Telephone Encounter - Marti Sanchez - 04/01/2025 9:11 AM EDT Please see message below and advise if agree with DME. Thank you * Telephone Encounter - Yousuf Guzman - 03/31/2025 3:15 PM EDT TC from [place] with [facility] requesting DME Shower chair Cane Once received [facility] will fax over to strain technician. documented in this encounter Plan of Treatment Upcoming Encounters Date Type Department Care Team (Late st Contact Info) Description 04/15/2025 11:00 AM EDT Clinical Support [facility] [address] [place] [address] 07/21/2025 9:00 AM EDT Office Visit [facility] [address] [place] [address] Name, MD Hakan [address] [place] [address] 08/01/2025 9:00 AM EDT Office Visit [facility] [address] [place] [address] Nadiya Lee, OD [address] [place] [address] documented as of this encounter Visit Diagnoses Not on filedocumented in this encounter Additional Health Concerns Assessment Noted Time PHQ-9 Depression Total Score: 3 03/29/20 11:01 AM EDT documented as of this encounter Care Teams Vacuum Cleaner Mechanic Relationship Specialty Start Date End Date NameHakan MD [address] [place] [address] PCP - General Internal Medicine 03/29/25 documented as of this encounter
[2025-04-08 11:29] LABS: MANUAL DIFF FLAG NO
[2025-04-08 11:53] LABS: Basophils Absolute Auto 0.1 X10*3/uL (0.0-0.2); Basophils Percent Auto 0.5 % (0-2); Eosinophils Absolute Auto 0.3 X10*3/uL (0.0-0.4); Eosinophils Percent Auto 1.9 % (0-4); Hematocrit 44.9 % (37.0-47.0); Hemoglobin 14.9 g/dl (12.0-16.0); Imm Gran Abs Auto 0.07 X10*3/uL (0.00-0.03); Imm Gran Pct Auto 0.5 % (0.0-0.4); Lymphocytes Percent Auto 26.9 % (20-40); Mean Corpuscular HGB Conc 33.2 g/dl (31.0-35.0); Mean Corpuscular Hemoglobin 31.4 pg (27.0-33.0); Mean Corpuscular Volume 94.5 fL (80.0-98.0); Mean Platelet Volume 11.6 fL (9.4-12.3); Monocytes Absolute Auto 0.7 X10*3/uL (0.1-1.2); Neutrophils Absolute Auto 9.7 x10*3/uL (2.0-8.3); Neutrophils Percent Auto 65.2 % (45-73); Platelet Count 258 X10*3/uL (160-400); Red Blood Count 4.75 X10*6/uL (4.20-5.50); Red Cell Distribution Width 13.7 % (11.0-16.0); White Blood Count 14.8 X10*3/uL (4.8-10.8)
[2025-04-08 12:19] LABS: Creatinine Urine 111.88 mg/dL; Microalbum/Creatinine Ratio Ur 18.7 ug/mg cr (<30)
[2025-04-08 12:21] LABS: Alanine Aminotransferase 39 U/L (0-31); Albumin Level 4.3 g/dL (3.5-5.0); Alkaline Phosphatase 176 U/L (39-117); Anion Gap 13 (12-20); Aspartate Amino Transferase 35 U/L (5-31); Bilirubin Total 0.2 mg/dL (0.0-1.0); Blood Urea Nitrogen 13 mg/dL (9-16); Carbon Dioxide 26 mmol/L (22-29); Chloride 105 mmol/L (96-108); Cholesterol 150 mg/dL (<200); Estimated Glomerular Filt Rate > 60; Glucose Random 144 mg/dL (60-115); HDL Cholesterol 34 mg/dL (>40); LDL Cholesterol Calculated 61 mg/dL (<100); Potassium 4.3 mmol/L (3.3-5.1); Sodium 140 mmol/L (135-145); Total Protein 7.9 g/dL (6.5-8.0); Triglycerides 275 mg/dL (<150)
== END 2025-04-08 08:43 | disposition home or self-care (01) ==
LOC: HO.HHCL 08:42
PROVIDERS: Visit Provider Internal Medicine Geriatric Medicine
DX: E11.9 Type 2 diabetes mellitus without complications (principal)
CPT/HCPCS: 36415; 80053; 80061; 82043; 82570; 85025

== ENCOUNTER 2025-05-04 09:41 | Outpatient (AMB) | payer MEDICARE, MEDICAID, SELFPAY ==
--- NOTE | 2025-05-04 10:02 | A.OFFVIS_ITS ---
Vital Signs 05/04/25 10:04 Height 5 ft 1 in Weight 174 lb BMI 32.9 BP 124/64 Blood Pressure Location Rt brachial Position Sitting Respiration 16 Pulse 80 Pulse Source Pulse Oximeter Pulse Oximetry (%) 96 Oxygen Delivery Method Room Air Intake Visit Reasons: ITDD Refill 3 months Home Health Attendant Required: No Research Laboratory Specialist: Research Laboratory Specialist Present Accompanied by: Benson Strange Allergies bupropion (From ZYBAN) Allergy (Intermediate, Verified 05/04/25 10:05) HIVES clindamycin (CLINDAMYCIN) Allergy (Intermediate, Verified 05/04/25 10:05) HIVES Medication List - Last Reconciled 05/04/25 by Mariana Tanner LPN atorvastatin 80 mg PO BEDTIME buspirone 7.5 mg PO BID clonazepam (Klonopin) 1 mg PO ONCE escitalopram oxalate (Lexapro) 20 mg PO DAILY mirtazapine 45 mg PO BEDTIME quetiapine (Seroquel) 100 mg PO BEDTIME semaglutide (Ozempic) 1 mg subcut QWEEK tizanidine 2 mg PO Q8H PRN HPI HPI ITDD Refill 3 months: Details: History of Present Illness The patient is a 55-year-old female presenting with medication adjustment and ventral pump refill for chronic pain management. She experiences exacerbations of her chronic pain during certain weather conditions, notably rainy days, which affect her comfort and daily function. Despite her current pain management regimen that includes continuous infusion and additional bolus doses up to five times per day, she notes only temporary relief lasting a few minutes and seeks a more effective medication protocol. Currently, her pain persists in a manner that she finds challenging, with bolus doses providing quick but insufficient analgesia. She reports no adverse effects such as itching with her current therapy but desires improved pain control. Pain Description - Persistent chronic pain exacerbated on rainy days - Temporary relief achieved from bolus doses lasting a few minutes - Requires pulse doses five times daily - Adequacy of current regimen in question, with pain persisting despite treatment Pain Management - Affect: Patient reports persistent pain impacting comfort and quality of life. - Analgesia: Current use of infusion and boluses providing limited, temporary relief. - Adverse Effects: No significant side effects, such as itching, reported. - Activities of Daily Living: Limited by pain exacerbations on rainy days; seeking better control. - Aberrant Drug Related Behaviors: None reported or observed. Procedure - Procedure performed: Intrathecal pump refill - Documentation of informed consent obtained: Prior procedure informed consent obtained - Detailed description: The pump was interrogated and reprogrammed to deliver 0.15 mg of the hydromorphone daily. Boluses sustained at 0.025 mg per bolus with 6 doses per day. The pump volume was reset to 40 mL; site cleaned and procedure done in sterile fashion with no complications. [facility] Medical History (Updated 01/18/25 @ 08:15 by Jon Ho MD) group home (current) use of opiate analgesic Diabetes mellitus type 2, diet-controlled Personal history of nicotine dependence Opioid use agreement exists Pain in pacemaker pocket Frequent headaches Chronic LLQ pain Anxiety Depression Presence of neurostimulator Surgical History (Updated 10/12/21 @ 12:39 by Ai Valle PA-C) S/P insertion of spinal cord stimulator Hx of left inguinal hernia repair Hx of cholecystectomy History of hysterectomy (~2000) History of appendectomy (~2012) Family History Father No problems noted. Social History (Updated 11/02/21 @ 15:11 by Ai Valle PA-C) Household Members: Significant Other Household Members Other:: lives with BF Alcohol intake: never Comment: see assessments Patient Tobacco Use Status: Current everyday Tobacco user Tobacco use type: Cigarette Cigarettes Per Day: 10 Years Smoked: onset 11, 1/2-3/4ppd x 40yrs - 20+PYH Current occupational status: disabled Physical Exam Vital Signs: Last Vital Signs Pulse 80 05/04/25 10:04 Resp 16 05/04/25 10:04 BP 124/64 05/04/25 10:04 Pulse Ox 96 05/04/25 10:04 Oxygen Delivery Method Room Air 05/04/25 10:04 BMI result Body Mass Index 32.9 Assessment & Plan Assessment & Plan (1) Chronic pain syndrome: Code(s): G89.4 - Chronic pain syndrome Category: Medical (2) Presence of intrathecal pump: Code(s): Z97.8 - Presence of other specified devices Category: Medical Plan Plan - Adjust medication regimen and consider adding bupivacaine to current mixtreatment for potential improved efficacy. - Increase existing medication infusion. Explore combination therapy with low- dose anesthetic agents. - Schedule follow-up in two months to evaluate treatment outcomes and adjust where needed. Patient was informed and verbally consented to the use of an ambient scribe for clinic note documentation during this visit. Discussion Notes During the consultation, I reviewed with the patient the concerns regarding her current pain management approach. We discussed the limited efficacy of the cu rrent regimen during exacerbations, particularly on rainy days, and the temporary relief provided by boluses. Given these concerns, we have planned to adjust her medications by potentially adding pivocaine, exploring the benefits of combination therapy to better control her pain. Consent for necessary adjustments and treatment approach was obtained, with comprehension of potential benefits versus risks. A follow-up appointment was scheduled in two months for thorough evaluation and to determine the success of the therapeutic modifications. Patient Instructions - Follow the updated medication regimen as discussed. - Note any changes in pain levels or side effects. - Return for a follow-up appointment in two months. - Contact us if any new side effects or concerns arise. Coding Level of Care Code Est Pt Level 3 (08402) Diagnoses Chronic pain syndrome G89.4 Presence of intrathecal pump Z97.8
[2025-05-04 10:04] VITALS: BP 124/64; PULSE 80; RESP 16; O2SAT 96; BMI 32.9
== END 2025-05-04 10:32 | disposition home or self-care (01) ==
LOC: HO.PMC 09:41
PROVIDERS: PCP Internal Medicine Geriatric Medicine; Visit Provider Internal Medicine
DX: G89.4 Chronic pain syndrome (principal); Z45.1 Encounter for adjustment and management of infusion pump
CPT/HCPCS: 62370; 99213

== ENCOUNTER → 2025-05-04 09:41 | Outpatient (BNVA) | payer MEDICARE, SELFPAY | PROVIDERS: PCP Internal Medicine Geriatric Medicine; Visit Provider Internal Medicine | DX: G89.4 Chronic pain syndrome (principal); Z97.8 Presence of other specified devices | CPT/HCPCS: 62370; 99212 ==

== ENCOUNTER 2025-06-11 21:44 | Emergency (ER) | payer MEDICARE, SELFPAY ==
[2025-06-11 21:48] VITALS: BP 134/87; BP 162/76; PULSE 77; PULSE 88; RESP 15; TEMP 36.9; O2SAT 100; O2SAT 99; BMI 33.5
--- NOTE | 2025-06-12 00:17 | ED.GENADULT ---
HPI - General Adult General Chief complaint: Back Pain/Injury Stated complaint: back pain x1 week Time Seen by Provider: 06/11/25 23:38 Source: patient Mode of arrival: EMS Limitations: no limitations History of Present Illness ED Provider: Carrillo MIN HPI narrative: The patient is a 55-year-old female with extensive past medical history for chronic back pain, was previously treated with surgical intervention at L4/L5, followed by a spinal cord stimulator which was subsequently removed and replaced with the intrathecal Dilaudid pump. The patient recently moved here from [place] where the previous surgical interventions were performed. The patient is currently being followed by Dr. Jon Ho from pain management. Patient was seen on 05/04/2025 at which time, per chart review, Dilaudid pump maintenance dose, bolus dose, and number of boluses was increased. The patient presents to the ED reporting for the past week she has been experiencing worsening low back pain with pain radiating to the left leg with tingling paresthesias. The patient denies any fall, car accident, or other blunt trauma. The patient denies any recent heavy lifting as she is clinically disabled. The patient reports she has been taking ibuprofen and Tylenol without relief, last took these medications at 16:00 today. Patient denies taking other medications for her symptoms. The patient has not contacted her cloth painter regarding the increased pain/symptoms over the past week. The patient denies associated fever/chills, nausea, vomiting, abdominal pain, dysuria, or hematuria. Related Data Home Medications ?Medication ?Instructions ?Recorded ?Confirmed mirtazapine 45 mg tablet 45 mg PO BEDTIME 02/27/21 05/04/25 quetiapine 100 mg tablet (Seroquel) 100 mg PO BEDTIME 02/27/21 05/04/25 clonazepam 1 mg tablet (Klonopin) 1 mg PO ONCE 02/22/22 05/04/25 escitalopram oxalate 20 mg tablet 20 mg PO DAILY 02/22/22 05/04/25 (Lexapro) atorvastatin 80 mg tablet 80 mg PO BEDTIME 02/09/25 05/04/25 semaglutide 1 mg/dose (4 mg/3 mL) 1 mg subcut QWEEK 02/09/25 05/04/25 subcutaneous pen injector (Ozempic) buspirone 7.5 mg tablet 7.5 mg PO BID 05/04/25 05/04/25 tizanidine 2 mg capsule 2 mg PO Q8H PRN 05/04/25 05/04/25 Allergies Allergy/AdvReac Type Severity Reaction Status Date / Time bupropion (From ZYBAN) Allergy Intermediate HIVES Verified 06/11/25 21:57 clindamycin (CLINDAMYCIN) Allergy Intermediate HIVES Verified 06/11/25 21:57 Review of Systems Review of Systems: Yes all other systems are reviewed and are negative [facility] Past Medical History Medical History (Updated 06/12/25 @ 01:13 by Carrillo Rooney PA-C) correction (current) use of opiate analgesic Diabetes mellitus type 2, diet-controlled Personal history of nicotine dependence Opioid use agreement exists Pain in pacemaker pocket Frequent headaches Chronic LLQ pain Anxiety Depression Presence of neurostimulator Surgical History (Updated 10/12/21 @ 12:39 by Ai Valle PA-C) S/P insertion of spinal cord stimulator Hx of left inguinal hernia repair Hx of cholecystectomy History of hysterectomy (~2000) History of appendectomy (~2012) Family History Family History Father No problems noted. Social History Social History (Updated 11/02/21 @ 15:11 by iA Valle PA-C) Household Members: Significant Other Household Members Other:: lives with BF Alcohol intake: never Comment: see assessments Patient Tobacco Use Status: Current everyday Tobacco user Tobacco use type: Cigarette Cigarettes Per Day: 10 Years Smoked: onset 11, 1/2-3/4ppd x 40yrs - 20+PYH Smoked in Last 30 Days: Yes Use of substances other than those prescribed or required for medical reasons: No Advance Directives: No Advance Directives Information Provided: No Do you have a plan to hurt others: No Plan Patient : No Current occupational status: disabled Physical Exam ED Vital Signs: Vital Signs - 24 hr 06/11/25 21:48 Temperature 98.5 F Pulse Rate 77 Respiratory Rate 15 Blood Pressure 134/87 Pulse Oximetry 99 Oxygen Delivery Method Room Air BMI result Body Mass Index 33.5 CONSTITUTIONAL: The patient appears non-toxic, well nourished and in no acute distress. Vital signs as documented. HEAD: Atraumatic, normocephalic. EYES: EOMs grossly intact, pupils equal, conjunctiva clear, no exudate. ENT: Nares patent, no discharge. Airway patent, no audible stridor, visible mucosa is pink and moist without noted lesions. NECK: Trachea is midline, no obvious masses or gross abnormalities. CHEST: Symmetric movement, normal appearance. LUNGS: No stridor, Non-labored work of breathing. CARDIAC: No evidence of hypoperfusion. ABDOMEN: Abdomen soft and non-tender x4 quadrants, no palpable masses or organomegaly. : Deferred. BACK: There is reported tenderness to palpation of the lumbar spine and low back diffusely, no overlying erythema or ecchymosis, there are well-healed surgical scars noted, no drainage. No crepitus appreciated. EXTREMITIES: Normal tone, moves all extremities spontaneously without reported pain. No obvious acute injury or deformity noted. NEURO: Alert and oriented x3, CN II-XII appear grossly intact. Cerebellar Functioning grossly intact. No obvious sensory or motor deficits. Speech clear and appropriate. PSYCH: normal affect, appropriate eye contact, fluid speech, with appropriate response to questioning. No reported suicidality or homicidality. SKIN: Warm, dry, color appropriate, normal turgor. No rashes noted. Medications Administered Discontinued Medications Generic Name Dose Route Start Last Admin Trade Name Freq PRN Reason Stop Dose Admin Acetaminophen 975 mg 06/12/25 00:09 06/12/25 00:26 Acetaminophen 325 Mg Tablet PO 06/12/25 00:10 975 mg ONCE ONE Administration Cyclobenzaprine HCl 10 mg 06/12/25 00:15 06/12/25 00:26 Cyclobenzaprine Hcl 10 Mg Tablet PO 06/12/25 00:16 10 mg ONCE ONE Administration Ketorolac Tromethamine 30 mg 06/12/25 00:09 06/12/25 00:26 Ketorolac Tromethamine 30 Mg/Ml Vial IM 06/12/25 00:10 30 mg ONCE ONE Administration Tramadol HCl 50 mg 06/12/25 00:09 06/12/25 00:26 Tramadol Hcl 50 Mg Tablet PO 06/12/25 00:10 50 mg ONCE ONE Administration Medical Decision Making Medical Decision Making MDM Narrative: 12:24 AM 06/12/2025 (Dena MIN): The patient is a 55-year-old female with chronic back pain managed by pain management with intrathecal Dilaudid pump which was recently increased in both maintenance dose, bolus dose, and number of boluses per day on 05/04/2025. The patient reports despite these increases she has had persistently worsening pain, significantly worse over the past week without associated trauma. The patient will be treated with Toradol, Tylenol, Flexeril, and Ultram. We will reassess for improvement in symptoms. 1:09 AM 06/12/2025 (Dena MIN): Patient reports moderate improvement in symptoms. Patient is requesting discharge and advised that she will follow up with her pain specialist to consider additional changes to her current pain regimen. The patient will be discharged with Flexeril and instructions to continue taking ibuprofen and Tylenol in addition to her intrathecal pump. Of note the patient was also offered steroids while in the ED and upon discharge, patient declined steroids on both occasions citing a history of mood swings and weight gain when previously taking steroids. External Record Review External record reviewed: Outpatient record Discharge Plan Discharge Clinical Impression: Lumbar radiculopathy, Chronic low back pain Patient Disposition: Home, Self-Care Instructions: Chronic Pain (ED), Lumbar Radiculopathy (ED) Additional Instructions: Thank you for choosing [facility]'s Emergency Department for your care today. Thankfully your symptoms slightly improved following interventions in the ED. At this time there is no indication for admission to the hospital or continued ED observation, and it is safe to discharge you home. It is extremely important that you follow up with your cloth painter for a discussion regarding changes that can be made to your current pain management regimen. You should continue take alternating (staggered) doses of ibuprofen 600mg and Tylenol 1000mg every 4 hours as needed for any additional pain. As a part of your care plan, you have also been prescribed a muscle relaxer called Flexeril. Please take this medication only for severe pain or spasm that is not relieved by ibuprofen and/or Tylenol. Muscle relaxer medications can carry high risk of unintentional addiction and abuse. Take this medication only as directed and only if absolutely necessary. This medicine can make you drowsy, you are not allowed to drive, operate heavy machinery, or be the sole care provider for children while taking this medication. Please also follow up with your primary care physician for re-evaluation, additional management of your symptoms, and continued preventative care. If you do not have a primary care physician, please call the [facility] at [phone] to establish a new primary care physician. While waiting to establish your new primary care physician, you can call our Walk-in Care [facility] at [phone] for non-emergency needs. Please return to the emergency department if you develop a severe or sudden change in your symptoms, a fever over 100.4 that does not improve with Tylenol or Ibuprofen, recurrent vomiting, or any other new or worsening symptoms or concerns. Prescriptions: No Action mirtazapine 45 mg tablet 45 mg PO BEDTIME quetiapine [Seroquel] 100 mg tablet 100 mg PO BEDTIME clonazepam [Klonopin] 1 mg tablet 1 mg PO ONCE escitalopram oxalate [Lexapro] 20 mg tablet 20 mg PO DAILY Ozempic 1 mg/dose (4 mg/3 mL) pen injector 1 mg subcut QWEEK atorvastatin 80 mg tablet 80 mg PO BEDTIME tizanidine 2 mg capsule 2 mg PO Q8H PRN buspirone 7.5 mg tablet 7.5 mg PO BID Referrals: Hakan Hatch MD [Primary Care Provider, Internal Medicine] Clinical Impression: Lumbar radiculopathy; Chronic low back pain Jon Ho MD [Physician, Pain Management] Clinical Impression: Lumbar radiculopathy; Chronic low back pain Print Language: Kyrgyz
[2025-06-12 01:23] VITALS: BP 134/78; PULSE 75; RESP 15; TEMP 36.9; O2SAT 98
== END 2025-06-12 01:24 | disposition home or self-care (01) ==
PROVIDERS: Emergency Provider Emergency Medicine Emergency Medical Services; PCP Internal Medicine Geriatric Medicine
DX: M54.16 Radiculopathy, lumbar region (principal); M54.50 Low back pain, unspecified; G89.4 Chronic pain syndrome; Z79.891 Long term (current) use of opiate analgesic; E11.9 Type 2 diabetes mellitus without complications; Z96.82 Presence of neurostimulator
CPT/HCPCS: 96372; 99284; J1885

== ENCOUNTER 2025-07-06 09:26 | Outpatient (AMB) | payer MEDICARE, MEDICAID, SELFPAY ==
--- NOTE | 2025-07-06 09:32 | MHC.OFFVIS ---
Vital Signs 07/06/25 09:33 Height 5 ft 2 in Weight 172 lb BMI 31.5 BP 110/57 L Blood Pressure Location Lt brachial Position Sitting Respiration 16 Pulse 75 Pulse Source Pulse Oximeter Pulse Oximetry (%) 99 Oxygen Delivery Method Room Air Intake Visit Reasons: ITDD PUMP REFILL Hydrological Technical Officer Required: No Beehive Kiln Charcoal Burner: Beehive Kil[employer] Charcoal Burner Present Accompanied by: Benson Strange Allergies bupropion (From ZYBAN) Allergy (Intermediate, Verified 07/06/25 09:34) HIVES clindamycin (CLINDAMYCIN) Allergy (Intermediate, Verified 07/06/25 09:34) HIVES Medication List - Last Reconciled 07/06/25 by Mariana Tanner LPN atorvastatin 80 mg PO BEDTIME buspirone 10 mg PO TID escitalopram oxalate (Lexapro) 20 mg PO DAILY metformin 500 mg PO DAILY mirtazapine 45 mg PO BEDTIME tizanidine 2 mg PO Q8H PRN zolpidem 5 mg PO BEDTIME HPI HPI ITDD PUMP REFILL: Details: History of Present Illness The patient is a 55-year-old female presenting with pain management issues related to her intrathecal pump. She reports waking up with increased pain due to weather changes, specifically when it is cloudy or rainy. The patient has an intrathecal pump for pain management, which was refilled during this visit. Her baseline medication includes hydromorphone, and bupivacaine was added to her regimen today. The pump is set to deliver a continuous infusion of hydromorphone and bupivacaine, with additional boluses available for patient-controlled analgesia. Pain Description - Onset: Pain increases with weather changes, particularly when cloudy or rainy. - Quality: Achy pain reported upon waking. Pain Management - Analgesia: Intrathecal pump with hydromorphone and bupivacaine for pain control. - Activities of Daily Living: Pain affects daily activities, especially with weather changes. [facility] Medical History (Updated 06/13/25 @ 00:02 by Angela Mark) prison (current) use of opiate analgesic Diabetes mellitus type 2, diet-controlled Personal history of nicotine dependence Opioid use agreement exists Pain in pacemaker pocket Frequent headaches Chronic LLQ pain Anxiety Depression Presence of neurostimulator Surgical History (Updated 10/12/21 @ 12:39 by Ai Valle PA-C) S/P insertion of spinal cord stimulator Hx of left inguinal hernia repair Hx of cholecystectomy History of hysterectomy (~2000) History of appendectomy (~2012) Family History Father No problems noted. Social History (Updated 11/02/21 @ 15:11 by Ai Valle PA-C) Household Members: Significant Other Household Members Other:: lives with BF Alcohol intake: never Comment: see assessments Patient Tobacco Use Status: Current everyday Tobacco user Tobacco use type: Cigarette Cigarettes Per Day: 10 Years Smoked: onset 11, 1/2-3/4ppd x 40yrs - 20+PYH Current occupational status: disabled Physical Exam Vital Signs: Last Vital Signs Pulse 75 07/06/25 09:33 Resp 16 07/06/25 09:33 BP 110/57 L 07/06/25 09:33 Pulse Ox 99 07/06/25 09:33 Oxygen Delivery Method Room Air 07/06/25 09:33 BMI result Body Mass Index 31.5 Office Procedures Details: Intra-thecal Pump Refill The name and date of were verified, and informed consent was obtained for the procedure. The pump was interrogated. Patient was positioned supine on the bed and the area of the intrathecal pump was prepped with chloraprep. The fenestrated drape was sterilely applied over the area of the pump. Sterile gloves were worn and the aspiration system was assembled containing 2 22-gauge noncoring needle; the needle was connected to extension tubing which was connected to the 20-cc sterile syringe. The extension tubing was clamped. The pain pump was palpated under the skin in the patient's abdomen. The needle was inserted through the skin and the central plug of the pain pump and fluid was aspirated.?Clear fluid were aspirated. After that, a new batch of medication was obtained. The admixture was premixed in two 20cc syringes by [facility] compounding pharmacy. The syringe was connected to the bacterial filter, and then connected to the extension tubing. After that, the medication in the syringe was slowly instilled into the pump with aspirations at 15 and 5cc linares. The pump was programmed and updated per the latest parameters. The details of this program are available in the pump log that was saved and uploaded to the EMR. [id number] - Refill Procedure code (CPT) selection complete Assessment & Plan Assessment & Plan (1) Presence of intrathecal pump: Code(s): Z97.8 - Presence of other specified devices Category: Medical (2) Chronic pain syndrome: Code(s): G89.4 - Chronic pain syndrome Category: Medical Plan Plan - Refilled intrathecal pump with hydromorphone and add bupivacaine to enhance pain control. - Adjusted the pump settings to allow for patient-controlled boluses for breakthrough pain. - Schedule follow-up in two months or sooner if the patient experiences adverse effects from bupivacaine. Patient was informed and verbally consented to the use of an ambient scribe for clinic note documentation during this visit. Discussion Notes I discussed with the patient the addition of bupivacaine to her pain management regimen and the potential for adjusting the pump settings to improve her pain control. We agreed on a follow-up plan to monitor her response to the new medication and adjust as necessary. Patient Instructions - Monitor how you feel with the new medication and report any adverse effects. - Follow up in two months or sooner if you experience any issues with the new medication. Coding Level of Care Code Est Pt Level 3 (45419) Diagnoses Presence of intrathecal pump Z97.8 Chronic pain syndrome G89.4 CPT Codes Intraethecal Drug Delivery System - CPT: 85170 - Refill ([id number])
[2025-07-06 09:33] VITALS: BP 110/57; PULSE 75; RESP 16; O2SAT 99; BMI 31.5
--- OUTSIDE RECORDS SUMMARY | 2025-07-06 09:53 | XMS_ITS | Encounter Summary ---
Author Organization [employer] Address [address] [place] [address] Care Team Providers Care Mixing Machine Attendant Name Role Phone Name, Hakan KATE Primary Care Provider [phone] Reason for Visit * Reason Comments Med Refill Encounter Details Date Type Department Care Team ([facility] st Contact Info) Description 06/25/2025 Refill [facility] [address], [place] [id number] Name, MD Hakan [address] [place] [address] Type 2 diabetes mellitus treated without insulin ([facility]) Social History Tobacco Use Types Packs/Day Years [...] Care Team (Late st Contact Info) Description 07/21/2025 9:00 AM EDT Office Visit [facility] [address] [place] [address] NameHakan MD [address] [place] [address] 08/01/2025 9:00 AM EDT Office Visit [facility] [address] [place] [address] Jesus, Nadiya, OD [address] [place] [address] documented as of this encounter Visit Diagnoses Diagnosis Type 2 diabetes mellitus treated without insulin ([facility]) documented in this encounter Additional Health Concerns Assessment Noted Time PHQ-9 Depression Total Score: 3 03/29/20 25 11:01 AM EDT documented as of this encounter Care Teams Mixing Machine Attendant Relationship Specialty Start Date End Date Hakan Hatch MD [address] [place] [id number] PCP - General Internal Medicine 03/29/25 documented as of this encounter
== END 2025-07-06 10:53 | disposition home or self-care (01) ==
LOC: HO.PMC 09:26
PROVIDERS: PCP Internal Medicine Geriatric Medicine; Visit Provider Internal Medicine
DX: G89.4 Chronic pain syndrome (principal); Z97.8 Presence of other specified devices; Z45.1 Encounter for adjustment and management of infusion pump
CPT/HCPCS: 62370; 99213

== ENCOUNTER → 2025-07-06 09:26 | Outpatient (BNVA) | payer MEDICARE, SELFPAY | PROVIDERS: PCP Internal Medicine Geriatric Medicine; Visit Provider Internal Medicine | DX: G89.4 Chronic pain syndrome (principal); Z45.1 Encounter for adjustment and management of infusion pump; Z79.891 Long term (current) use of opiate analgesic | CPT/HCPCS: 62370; 99212 ==

== ENCOUNTER 2025-08-12 09:07 | Outpatient (AMB) | payer MEDICARE, SELFPAY ==
--- NOTE | 2025-08-12 09:13 | MHC.OFFVIS ---
Vital Signs 08/12/25 09:14 Height 5 ft 2 in Weight 173 lb BMI 31.6 BP 110/62 Blood Pressure Location Lt brachial Position Sitting Respiration 16 Pulse 86 Pulse Source Pulse Oximeter Pulse Oximetry (%) 97 Oxygen Delivery Method Room Air Intake Visit Reasons: pump fill Camp Boss Required: No Biometrics Analyst: Biometrics Analyst Present Accompanied by: Benson Strange Allergies bupropion (From ZYBAN) Allergy (Intermediate, Verified 08/12/25 09:15) HIVES clindamycin (CLINDAMYCIN) Allergy (Intermediate, Verified 08/12/25 09:15) HIVES Medication List - Last Reconciled 08/12/25 by Mariana Tanner LPN buspirone 10 mg PO TID escitalopram oxalate (Lexapro) 20 mg PO DAILY metformin 500 mg PO DAILY mirtazapine 45 mg PO BEDTIME semaglutide (Ozempic) 0.25 mg subcut QWEEK zolpidem 5 mg PO BEDTIME HPI HPI pump fill: Details: History of Present Illness The patient is a 55-year-old female presenting with pain management issues. She has been experiencing numbness as an adverse effect from bupivacaine, which was initially administered at a higher dose. The dose was reduced from 20 mg to 5 mg to alleviate the numbness, which has been effective in reducing the intensity of this side effect. Additionally, the patient reported constipation as a side effect of the medication regimen. The constipation was noted after the initial administration of the medication, prompting a discussion on adjusting the treatment plan. Pain Description - Onset: Pain management with bupivacaine and hydromorphone - Quality: Effective analgesia but causes numbness - Location: Mid area discomfort due to numbness - Exacerbating factors: Higher doses of bupivacaine - Relieving factors: Dose reduction of bupivacaine Pain Management - Affect: No specific impact on mood discussed - Analgesia: Bupivacaine and hydromorphone used, effective in pain control - Adverse Effects: Numbness and constipation reported - Activities of Daily Living: No specific interference discussed - Aberrant Drug Related Behaviors: None reported [facility] Medical History (Updated 06/13/25 @ 00:02 by Angela Mark) intermediate (current) use of opiate analgesic Diabetes mellitus type 2, diet-controlled Personal history of nicotine dependence Opioid use agreement exists Pain in pacemaker pocket Frequent headaches Chronic LLQ pain Anxiety Depression Presence of neurostimulator Surgical History (Updated 10/12/21 @ 12:39 by Ai Valle PA-C) S/P insertion of spinal cord stimulator Hx of left inguinal hernia repair Hx of cholecystectomy History of hysterectomy (~2000) History of appendectomy (~2012) Family History Father No problems noted. Social History (Updated 11/02/21 @ 15:11 by Ai Valle PA-C) Household Members: Significant Other Household Members Other:: lives with BF Alcohol intake: never Comment: see assessments Patient Tobacco Use Status: Current everyday Tobacco user Tobacco use type: Cigarette Cigarettes Per Day: 10 Years Smoked: onset 11, 1/2-3/4ppd x 40yrs - 20+PYH Current occupational status: disabled Physical Exam Vital Signs: Last Vital Signs Pulse 86 08/12/25 09:14 Resp 16 08/12/25 09:14 BP 110/62 08/12/25 09:14 Pulse Ox 97 08/12/25 09:14 Oxygen Delivery Method Room Air 08/12/25 09:14 BMI result Body Mass Index 31.6 Office Procedures Details: Intra-thecal Pump Refill The name and date of were verified, and informed consent was obtained for the procedure. The pump was interrogated. Patient was positioned supine on the bed and the area of the intrathecal pump was prepped with chloraprep. The fenestrated drape was sterilely applied over the area of the pump. Sterile gloves were worn and the aspiration system was assembled containing 2 22-gauge noncoring needle; the needle was connected to extension tubing which was connected to the 20-cc sterile syringe. The extension tubing was clamped. The pain pump was palpated under the skin in the patient's abdomen. The needle was inserted through the skin and the central plug of the pain pump and fluid was aspirated.?Clear fluid were aspirated, 26.5ml. After that, a new batch of medication was obtained. The admixture was premixed in two 20cc syringes by [facility] compounding pharmacy. The syringe was connected to the bacterial filter, and then connected to the extension tubing. After that, the medication in the syringe was slowly instilled into the pump with aspirations at 15 and 5cc linares. The pump was programmed and updated per the latest parameters. The details of this program are available in the pump log that was saved and uploaded to the EMR. [id number] - Refill Procedure code (CPT) selection complete Assessment & Plan Assessment & Plan (1) Presence of intrathecal pump: Code(s): Z97.8 - Presence of other specified devices Category: Medical Plan Plan Patient was informed and verbally consented to the use of an ambient scribe for clinic note documentation during this visit. 1. Pain Management With Bupivacaine And Hydromorphone - Plan to continue with reduced dose of bupivacaine to minimize numbness - Monitor for constipation and adjust treatment as necessary - Follow-up scheduled in three months for medication refill and assessment Discussion Notes During the visit, we discussed the effectiveness of the current pain management regimen, noting the adverse effects of numbness and constipation. We agreed to continue with a reduced dose of bupivacaine to alleviate numbness and monitor for constipation. A follow-up was scheduled in three months to reassess the medication regimen and refill as necessary. Patient Instructions - Continue with the current reduced dose of bupivacaine. - Monitor for any signs of constipation and report if symptoms persist. - Return for a follow-up appointment in three months for medication assessment and refill. Coding Level of Care Code Procedure Only Diagnoses Presence of intrathecal pump Z97.8 CPT Codes Intraethecal Drug Delivery System - CPT: 98845 - Refill ([id number])
[2025-08-12 09:14] VITALS: BP 110/62; PULSE 86; RESP 16; O2SAT 97; BMI 31.6
--- OUTSIDE RECORDS SUMMARY | 2025-08-12 09:47 | XMS_ITS | Encounter Summary ---
Author Organization [employer] Address [address] [facility] 7t [place] [address] Care Team Providers Care Graphic Arts Technician Name Role Phone Name, Hakan KATE Primary Care Provider [phone] Reason for Visit * Reason Comments Med Refill Encounter Details Date Type Department Care Team ([facility] st Contact Info) Description 06/25/2025 Refill [facility] [address] [place], [place] [phone] Name, MD Hakan [address] [place] [address] Type 2 diabetes mellitus treated without insulin ([facility]) Social History Tobacco Use Types Packs/Day Years [...] Care Team (Late st Contact Info) Description 10/18/2025 9:00 AM EST Office Visit [facility] [address] [place] [phone] NameHakan MD [address] [place] [phone] documented as of this encounter Visit Diagnoses Diagnosis Type 2 diabetes mellitus treated without insulin ([facility]) documented in this encounter Additional Health Concerns Assessment Noted Time PHQ-9 Depression Total Score: 3 03/29/20 25 11:01 AM EDT documented as of this encounter Care Teams Graphic Arts Technician Relationship Specialty Start Date End Date Hakan Hatch MD [address] [place] [id number] PCP - General Internal Medicine 03/29/25 documented as of this encounter
--- OUTSIDE RECORDS SUMMARY | 2025-08-12 09:47 | XMS_ITS | Encounter Summary ---
Author Organization [employer] Address [address] [facility] 7t [place] [address] Care Team Providers Care Public Health Engineer Name Role Phone Name, Hakan KATE Primary Care Provider [phone] Encounter Details Date Type Department Care Team (Late st Contact Info) Description 01/11/2025 Telephone [facility] [address] [place], [place] [phone] Name, MD Hakan [address] [place] [address] Social History Tobacco Use Types Packs/Day Years [...] state Last seen 1 year ago in [place] Apptmnt reminder and release form sent via mail . documented in this encounter Plan of Treatment Upcoming Encounters Date Type Department Care Team (Late st Contact Info) Description 10/18/2025 9:00 AM EST Office Visit [facility] [address] [place] [address] Name, [place] [address] documented as of this encounter Visit Diagnoses Not on filedocumented in this encounter Care Teams Public Health Engineer Relationship Specialty Start Date End Date Name, MD Hakan [address] [place] [phone] PCP - General Internal Medicine 03/29/25 documented as of this encounter
--- OUTSIDE RECORDS SUMMARY | 2025-08-12 09:47 | XMS_ITS | Clinical Summary ---
Author Organization [employer] Address [address] [facility] 7t [place] [address] Care Team Providers Care Gas Welder Apprentice Name Role Phone Name, Hakan KATE Primary Care Provider [phone] Allergies Active Allergy Reactions Criticality Noted Date Comments Bupropion 08/07/2018 Clindamycin 08/07/2018 Medications escitalopram (Lexapro) 20 MG tablet Take 20 mg by mouth in the morning. 03/08/20 25 Active mirtazapine (Remeron) 45 MG tablet Take 45 mg by mouth at bedtime. 03/08/20 25 Active atorvastatin (Lipitor) 80 MG tablet Take 1 tablet (80 mg) by mouth Once per day. 03/29/20 25 026 Active Blood Glucose Monitoring Suppl (FreeStyle Landers Lite) w/Device kitIndications :Type 2 diabetes mellitus treated without insulin ([facility]) Use to test blood sugar 1 times daily 1 kit 03/29/20 25 Active metFORMIN (Glucophage) 500 MG tabletIndicati ons:Type 2 Diabetes Mellitus Take 1 tablet (500 mg) by mouth Once per day. 90 tablet 3 05/10/20 25 026 Active Lancets miscIndication s:Type 2 diabetes mellitus treated without insulin ([facility]) USE TO TEST BLOOD SUGAR ONCE A DAY 100 each 3 06/13/20 25 Active Alcohol Swabs 70 % padsIndication s:Type 2 diabetes mellitus treated without insulin ([facility]) USE TO TEST BLOOD SUGAR ONCE A DAY 100 each 3 06/13/20 25 Active Accu-Chek Softclix Lancets lancetsIndicat ions:Type 2 diabetes mellitus without complication, without long-term current use of insulin ([facility]) Use to check blood sugar by subcutaneous route one time daily 100 each 11 06/16/20 25 Active Blood Glucose Monitoring Suppl (Accu-Chek Bernadette Plus) w/Device kitIndications :Type 2 diabetes mellitus without complication, without long-term current use of insulin ([facility]) Use to check blood sugar by subcutaneous route one time daily 1 kit 06/16/20 25 Active glucose blood (Accu-Chek Bernadette Plus) test stripIndicatio ns:Type 2 diabetes mellitus without complication, without long-term current use of insulin ([facility]) Use to check blood sugar bu subcutaneous route one time daily 100 each 11 06/16/20 25 Active Lancet Devices (Autolet) lancing deviceIndicati ons:Type 2 diabetes mellitus without complication, without long-term current use of insulin ([facility]) 1 each by Other route Once per day. Use to check blood sugar by subcutaneous route one time daily 90 each 3 06/16/20 25 026 Active busPIRone (Buspar) 10 MG tablet 06/28/20 25 Active Ambien 5 MG tablet 06/28/20 25 Active clotrimazole (Lotrimin) 1 % cream apply topically to the affected area twice daily 05/24/20 25 Active Ozempic, 0.25 or 0.5 MG/DOSE, 2 MG/3ML solution pen-injector INJECT 0.25MG SUBCUTANEOUS ONCE WEEKLY FOR 4 WEEKS THEN INCREASE TO 0.5MG ONCE WEEKLY 07/22/20 25 Active clonazePAM (KlonoPIN) 0.5 MG tablet TAKE 1/2 TABLET BY MOUTH DAILY NEEDED FOR SEVERE ANXIETY. NOT MORE THAN 1 TABLET A DAY 03/02/20 25 025 Discontinu ed(Therapy completed) QUEtiapine (SEROquel) 100 MG tablet Take 100 mg by mouth at bedtime. 03/08/20 25 025 Discontinu ed(Therapy completed) tiZANidine (Zanaflex) 2 MG tablet TAKE 1 TABLET(2 MG) BY MOUTH EVERY 8 HOURS FOR UP TO 10 DAYS NEEDED FOR MUSCLE SPASMS 30 tablet 05/04/20 25 025 Discontinu ed(Therapy completed) semaglutide (Ozempic) 2 MG/1.5ML solution pen-injector Inject 0.25mg subcutaneously q week x 4 weeks then incase to 0.5mg subcutaneously q week. 1.5 mL 11 07/21/20 25 025 Discontinu ed(Therapy completed) ondansetron (Zofran) 4 MG tablet Take 1 tablet (4 mg) by mouth every 8 (eight) hours if needed for nausea or vomiting for up to 7 days. 20 tablet 07/21/20 25 025 Active Problems Problem Noted Date Diagnosed Date Tobacco use disorder 07/21/2025 Obesity (BMI 30-39.9) 07/21/2025 Presence of implanted infusion pump 03/29/2025 Overview (03/29/2025): She has implanted Dilaudid infusion pump managed at [facility] since 2023 Mobile cecum 03/28/2025 Type 2 diabetes mellitus 03/20/2020 Steatosis of liver 12/25/2018 LFT elevation 06/23/2018 Anxiety 04/13/2018 Chronic low back pain 04/13/2018 Depressive disorder 04/13/2018 Overview (03/29/2025): Prescribing psychiatric provider [facility] H/O: hysterectomy 04/13/2018 History of appendectomy 04/13/2018 Migraine 04/13/2018 Resolved Problems Problem Noted Date Diagnosed Date Resolved Date Herpes zoster without complication 06/23/2018 03/29/2025 Spinal cord stimulator status 04/13/2018 04/15/2025 Overview (03/29/2025): This was removed in 2023 Encounters Date Type Department Care Team Description 08/05/2025 9:00 AM EDT Office Visit [facility] [address] [place] [address] Jesus, Nadiya, OD Type 2 diabetes mellitus without retinopathy (CMS/HCC) (Primary Dx); Choroidal nevus of left eye; Chorioretinal scar of both eyes; Early cataracts, bilateral; Presbyopia 08/05/2025 Travel 08/03/2025 Travel 07/25/2025 Travel 07/21/2025 9:00 AM EDT Office Visit [facility] [address] [place], [place] [phone] NameHakan MD Type 2 diabetes mellitus treated without insulin ([facility]) (Primary Dx); Obesity (BMI 30-39.9); Healthcare maintenance; Encounter for screening mammogram for malignant neoplasm of breast; Chronic low back pain with sciatica, sciatica laterality unspecified, unspecified back pain laterality; Tobacco use disorder 07/21/2025 Telephone [facility] [address] [place] [address] Dayna Prescott [place] Referral (Lung screening ) 07/21/2025 Travel 07/14/2025 Travel 07/13/2025 Refill [facility] [address] [place] [address] Hakan Hatch MD 06/25/2025 Refill [facility] [address] [place] [address] Hakan Hatch MD Type 2 diabetes mellitus treated without insulin ([facility]) 06/15/2025 Refill [facility] [address] [place] [address] Hakan Hatch MD Type 2 diabetes mellitus without complication, without long-term current use of insulin ([facility]) (Primary Dx) 06/11/2025 Refill [facility] [address] [place] [address] Hakan Hatch MD Type 2 diabetes mellitus treated without insulin ([facility]) from Last 3 Months Immunizations Immunization Administration [...] Sign Reading Time Taken Comments Blood Pressure 128/58 07/21/2025 9:00 AM EDT Pulse 77 07/21/2025 9:00 AM EDT Temperature 36.1 C (96.9 F) 07/21/2025 9:00 AM EDT Respiratory Rate 18 07/21/2025 9:00 AM EDT Oxygen Saturation 97% 07/21/2025 9:00 AM EDT Inhaled Oxygen Concentration - - Weight 79.8 kg (176 lb) 07/21/2025 9:00 AM EDT Height 154.9 cm (5' 1 ) 07/21/2025 9:00 AM EDT Body Mass Index 33.25 07/21/2025 9:00 AM EDT Plan of Treatment Upcoming Encounters Date Type Department Care Team (Late st Contact Info) Description 10/18/2025 9:00 AM EST Office Visit [facility] [address] [place] [address] Name, MD Hakan [address] [place] [address] Health Maintenance Due Date Last Done Comments CT Colonography 1968 FIT DNA/Cologuard 1968 FIT 1968 FOBT 1968 HIV Screening 1968 Sigmoidoscopy 1968 Diabetes: Foot Exam 1978 Hepatitis C Screening 1986 Hepatitis A Vaccines [...] Additional history exists COVID-19 Vaccine ( season) 2025 11/15/2021, 03/02/2021, 02/02/2021 Influenza Vaccine (#1) 2025 , 10/05/2020, 08/05/2019 Diabetes: Hemoglobin A1C 09/29/2025 03/29/2025, 01/22 Colonoscopy 03/22/2026 03/22/2021 Colorectal Cancer Screening 03/22/2026 Alcohol/Substance Use Screening 03/29/2026 03/29/2025 Depression Screening 03/29/2026 03/29/2025, 03/29/20 25 SDOH Screening 03/29/2026 03/29/2025 Diabetes: Urine Protein Screening 04/08/2026 04/08/2025 Lipid Panel 04/08/2026 04/08/2025 Disability Screening 07/14/2026 07/14/2025 Tobacco Screening 08/08/2026 08/08/2025 Eye Exam 08/05/2027 08/05/2025, 07/25, 08/05/2025, Additional history exists DTaP/Tdap/Td Vaccines (2 - Td or Tdap) [...] Name Priority Date/Time Associated Diagnosis Comments POCT GLUCOSE Routine 07/21/2025 9:01 AM EDT Type 2 diabetes mellitus treated without insulin ([facility]) ALBUMIN, RANDOM URINE W/CREATININE Routine 04/08/2025 8:51 AM EDT Type 2 diabetes mellitus treated without insulin ([facility]) LIPID PANEL, STANDARD Routine 04/08/2025 8:51 AM EDT Type 2 diabetes mellitus treated without insulin ([facility]) POCT GLYCATED HEMOGLOBIN, TOTAL Routine 03/29/2025 10:35 AM EDT Type 2 diabetes mellitus treated without insulin (CMS/HCC) BI MAMMOGRAM SCREENING BILATERAL Routine 10/25/2021 1:09 PM EST HM COLONOSCOPY Routine 03/22/2021 10:39 AM EDT from Last 3 Months or Most Recently Relevant to Health Maintenance Results * POCT Glucose (07/21/2025 9:01 AM EDT) Glucose Blood, POC 124 60 - 200 mg/dL QC Media Lot # [id number] Lot# Expiration Date Blood Capillary blood specimen / Unknown 07/21/2025 9:01 AM EDT us Hakan Hatch MD POINT OF CARE TEST ENTER/EDIT OR DERABLES Final Result * Albumin, Random Urine W/Creatinine (04/08/2025 8:51 AM EDT) Creatinine, Urine 111.88 mg/dL [facility] Microalbumin Urine 21.0 mg/L [facility] Microalbum Creatinine Ratio Ur 18.7 <30 ug/mg cr [facility] Comment:Albumin/Creatinine R at Reference Ranges: Normal: < 30 ug/mg creatinine Microalbuminuria: 30 - 300 ug/mg creatinineClinical Albuminuria: > 300 ug/mg creatinine Urine (Urine, Random) 04/08/2025 8:51 AM EDT 04/08/2025 10:59 AM EDT us Hakan Hatch MD LAB URINE ORDERABLES Final Resul t [facility] [address] [place] [phone] * (ABNORMAL) Lipid Panel, Standard (04/08/2025 8:51 AM EDT) Triglycerides 275(H) <150 mg/dL [facility] Comment:Desirable Triglyceri de: less than 150 mg/dLBorderline High Triglyceride 150-199 mg/dLHigh Triglyceride: 200-499 mg/dLVery High Triglyceride: greater than or equal to 5OO mg/dL Cholesterol 150 <200 mg/dL [facility] Comment:Desirable Cholestero l: less than 200 mg/dLBorderline High Cholesterol: 200-239 mg/dLHigh Cholesterol: greater than 239 mg/dL LDL Cholesterol Calculated 61 <100 mg/dL [facility] Comment:Desirable LDL: less than 100 mg/dLNear Optimal/Above Optimal LDL: 110- 129 mg/dLBorderline High LDL: 130-159 mg/dLHigh LDL: 160-189 mg/dLVery High LDL: greater than or equal to 190 mg/dL HDL Cholesterol 34(L) >40 mg/dL [facility] Comment:Desirable HDL: great er than 40 mg/dL Note: This HDL assay may give artificially low results in patients with liver disease. Blood Venous blood specimen / Unknown 04/08/2025 8:51 AM EDT 04/08/2025 11:23 AM EDT us Hakan Hatch MD LAB BLOOD ORDERABLES Final Resul t [facility] [address] [place] [address] [phone] * (ABNORMAL) POCT HGB A1C (03/29/2025 10:35 AM EDT) Hemoglobin A1C 6.5(A) 4.0 - 6.0 % QC Media Lot # [id number] Lot# Expiration Date Blood 03/29/2025 10:3 5 AM EDT us Hakan Hatch MD POINT OF CARE TEST ENTER/EDIT OR DERABLES Final Result * Req: Mammogram (Screening); Bilateral (10/25/2021 1:09 PM EST) Anatomical Region Laterality Modality Breast Bilateral Mammography 10/25/2021 1:09 PM EST Narrative 10/25/2021 1:10 PM EST Refer to the Notes tab for result details Legacy Procedure: Req: Mammogram (Screening); Bilateral Procedure Note ProviderTabatha MD - 02/16/2023 Refer to the Notes tab for result details [facility] Procedure: Req: Mammogram (Screening); Bilateral us Hakan Hatch MD IMG BI PROCEDURES Final Result * Hm Colonoscopy (03/22/2021 10:39 AM EDT) Colonoscopy Normal Normal Narrative Terrie Blackman - 03/22/2021 10:39 AM EDT Recommended 5 years see legacy note from 03/22/2021 us Historical Provider HEALTH MAINTENANCE Edited Result - Final from Last 3 Months or Most Recently Relevant to Health Maintenance Insurance [facility] ST[facility] [employer] DUAL COMPLETE Care Teams Gas Welder Apprentice Relationship Specialty Start Date End Date Name, MD Hakan [address] [place] [address] PCP - General Internal Medicine 03/29/25
--- OUTSIDE RECORDS SUMMARY | 2025-08-12 09:47 | XMS_ITS | Encounter Summary ---
Author Organization [employer] Address [address] [facility] 7t [place] [address] Care Team Providers Care Machine Tool Mechanic Name Role Phone Name, Hakan KATE Primary Care Provider [phone] Reason for Visit * Reason Onset Date Comments Med Refill 07/13/2025 Encounter Details Date Type Department Care Team ([facility] st Contact Info) Description 07/13/2025 Refill [facility] [address] [place], [place] [phone] Name, MD Hakan [address] [place] [address] Social History Tobacco Use Types Packs/Day Years [...] Description 10/18/2025 9:00 AM EST Office Visit [facility] [address] [place] [phone] Name, MD Hakan [address] [place] [address] documented as of this encounter Visit Diagnoses Not on filedocumented in this encounter Additional Health Concerns Assessment Noted Time PHQ-9 Depression Total Score: 3 03/29/20 25 11:01 AM EDT documented as of this encounter Care Teams Machine Tool Mechanic Relationship Specialty Start Date End Date NameHakan MD [address] [place] [id number] PCP - General Internal Medicine 03/29/25 documented as of this encounter
--- OUTSIDE RECORDS SUMMARY | 2025-08-12 09:47 | XMS_ITS | Encounter Summary ---
Author Organization [employer] Address [address] [place] [address] Care Team Providers Care Customer Leader Name Role Phone Name, Hakan KATE Primary Care Provider [phone] Encounter Details Date Type Department Care Team ([facility] st Contact Info) Description 04/08/[address] [facility] [address] [place] [address] Provider, MD Tabatha Social History Tobacco Use Types Packs/Day Years [...] Description 10/18/2025 9:00 AM EST Office Visit [facility] [address] [place] [phone] Name, MD Hakan [address] [place] [phone] documented as of this encounter Procedures Procedure Name Priority Date/Time Associated Diagnosis Comments HM COLONOSCOPY Routine 03/22/2021 10:39 AM EDT documented in this encounter Results * Hm Colonoscopy (03/22/2021 10:39 AM EDT) Colonoscopy Normal Normal Narrative Terrie Blackman - 03/22/2021 10:39 AM EDT Recommended 5 years see legacy note from 03/22/2021 us Historical Provider HEALTH MAINTENANCE Edited Result - Final documented in this encounter Visit Diagnoses Not on filedocumented in this encounter Additional Health Concerns Assessment Noted Time PHQ-9 Depression Total Score: 3 03/29/20 25 11:01 AM EDT documented as of this encounter Care Teams Customer Leader Relationship Specialty Start Date End Date Name, MD Hakan [address] [place] [id number] PCP - General Internal Medicine 03/29/25 documented as of this encounter
== END 2025-08-12 09:55 | disposition home or self-care (01) ==
LOC: HO.PMC 09:08
PROVIDERS: PCP Internal Medicine Geriatric Medicine; Visit Provider Internal Medicine
DX: Z45.1 Encounter for adjustment and management of infusion pump (principal)
CPT/HCPCS: 62370

== ENCOUNTER → 2025-08-12 09:07 | Outpatient (BNVA) | payer MEDICARE, SELFPAY | PROVIDERS: PCP Internal Medicine Geriatric Medicine; Visit Provider Internal Medicine | DX: Z45.1 Encounter for adjustment and management of infusion pump (principal); G89.4 Chronic pain syndrome; Z79.891 Long term (current) use of opiate analgesic | CPT/HCPCS: 62370 ==

== ENCOUNTER 2025-09-16 08:26 | Emergency (ER) | payer MEDICARE, SELFPAY ==
--- NOTE | ~2025-09-16 | US_ITS ---
EXAMINATION: US TRIPLEX LOWER EXTREMITY, BILATERAL CLINICAL INFORMATION: Bilateral calf pain COMPARISON: None available. TECHNIQUE: Color-flow triplex imaging with spectral analysis and compression Doppler were performed on the bilateral lower extremities. FINDINGS: Respiratory variation, normal compression and augmented flow are noted throughout the bilateral lower extremities. The visualized common femoral vein, superficial femoral vein, profunda femoral vein, popliteal vein and midcalf peroneal and posterior tibial venous segments show no evidence of deep venous thrombosis bilaterally. US/US venous duplex LE BI IMPRESSION: No evidence of deep venous thrombosis involving the bilateral lower extremities. Electronically signed by: Carlos Bailey MD 09/16/2025 10:49 AM EDT
[2025-09-16 08:32] VITALS: BP 123/57; PULSE 86; RESP 18; TEMP 36.7; O2SAT 96; BMI 33.2
[2025-09-16 08:53] LABS: MANUAL DIFF FLAG NO
--- NOTE | 2025-09-16 08:53 | ED.EXTPRO ---
HPI - Extremity Problem General Chief complaint: Extremity Problem Stated complaint: calf pain, painful to walk Time Seen by Provider: 09/16/25 08:46 Source: patient, RN notes reviewed and old records reviewed Mode of arrival: ambulatory History of Present Illness ED Provider: Milvia Warren PA-C HPI Narrative: 55-year-old female with a past medical history anxiety, depression, diabetes, presenting to ED complaining of bilateral calf pain > right x2 weeks. Also reports noted swelling. Denies known injury, trauma, fall, SOB, CP, recent travel, history of clots, anticoagulation use. Does admit to cigarette smoking. Related Data Home Medications ?Medication ?Instructions ?Recorded ?Confirmed mirtazapine 45 mg tablet 45 mg PO BEDTIME 02/27/21 08/12/25 escitalopram oxalate 20 mg tablet 20 mg PO DAILY 02/22/22 08/12/25 (Lexapro) buspirone 10 mg tablet 10 mg PO TID 07/06/25 08/12/25 metformin 500 mg tablet 500 mg PO DAILY 07/06/25 08/12/25 zolpidem 5 mg tablet 5 mg PO BEDTIME 07/06/25 08/12/25 semaglutide 0.25 mg or 0.5 mg (2 0.25 mg subcut QWEEK 08/12/25 08/12/25 mg/3 mL) subcutaneous pen injector (Ozempic) Allergies Allergy/AdvReac Type Severity Reaction Status Date / Time bupropion (From ZYBAN) Allergy Intermediate HIVES Verified 09/16/25 08:34 clindamycin (CLINDAMYCIN) Allergy Intermediate HIVES Verified 09/16/25 08:34 Review of Systems Review of Systems: Yes all other systems are reviewed and are negative Constitutional: Constitutional: Reports as per HPI [facility] Past Medical History Attestation statement: The following information was validated with the patient. Source: old records reviewed Medical History halfway (current) use of opiate analgesic Diabetes mellitus type 2, diet-controlled Personal history of nicotine dependence Opioid use agreement exists Pain in pacemaker pocket Frequent headaches Chronic LLQ pain Anxiety Depression Presence of neurostimulator Surgical History S/P insertion of spinal cord stimulator Hx of left inguinal hernia repair Hx of cholecystectomy History of hysterectomy (~2000) History of appendectomy (~2012) Family History Family History Father No problems noted. Social History Social History Household Members: Significant Other Household Members Other:: lives with BF Alcohol intake: never Comment: see assessments Patient Tobacco Use Status: Current everyday Tobacco user Tobacco use type: Cigarette Cigarettes Per Day: 10 Years Smoked: onset 11, 1/2-3/4ppd x 40yrs - 20+PYH Advance Directives: No Advance Directives Information Provided: No Current occupational status: disabled Physical Exam Vital Signs: Vital Signs: Last Vital Signs Temp 98.3 F 09/16/25 11:46 Pulse 74 09/16/25 11:46 Resp 14 09/16/25 11:46 BP 108/57 L 09/16/25 11:46 Pulse Ox 95 09/16/25 11:46 O2 Del Method Room Air 09/16/25 11:46 BMI result Body Mass Index 33.2 Const: General: cooperative, healthy appearing and no acute distress Orientation/consciousness: patient oriented x3 Limitations: no limitations HEENT: Head: Yes normal to inspection and Yes atraumatic Ears: hearing grossly normal bilaterally General nose exam: Normal external nose present Face and sinus: Yes normal facial exam Eyes: General: appearance normal, both eyes and all related structures EOM: EOMs intact bilaterally Neck: Neck: Yes normal visual inspection and Yes no meningeal signs Resp: Effort & Inspection: normal respiratory effort and no respiratory distress Auscultation: clear to auscultation bilaterally, no rhonchi and no wheezes Cardio: Rate: regular rate Heart sounds: S1 normal heart sound present and S2 normal heart sound present Skin: Rashes: no rashes Wounds: no wounds Neuro: General: patient oriented x3, tone normal and no meningeal signs Cranial nerves: Yes CN's II-XII intact bilaterally Gait exam (Neuro): Normal gait present Extrem: Other: + slight nonpitting edema appreciated > right. + bilateral calf tenderness. + Homans sign. NV intact Course Course Course Narrative: -1055--labs reassuring/at patient's baseline. BNP negative US venous duplex LE BI IMPRESSION: No evidence of deep venous thrombosis involving the bilateral lower extremities. > will obtain CPK -1130--CPK WNL. Results discussed with patient. Will give IM Toradol and recommended close PCP follow-up Results discussed with patient including worrisome signs and symptoms and strict return precautions, and when to return to the emergency department. They verbalized understanding and feel safe for discharge at this time. Medications Administered Discontinued Medications Generic Name Dose Route Start Last Admin Trade Name Freq PRN Reason Stop Dose Admin Ketorolac Tromethamine 30 mg 09/16/25 11:29 09/16/25 11:42 Ketorolac Tromethamine 30 Mg/Ml Vial IM 09/16/25 11:30 30 mg ONCE ONE Administration Medical Decision Making Medical Decision Making MDM Narrative: 55-year-old female with a past medical history anxiety, depression, diabetes, presenting to ED complaining of bilateral calf pain > right x2 weeks. On exam vital signs stable, NAD, nontoxic appearing, lungs CTA, bilateral nonpitting edema appreciated greater to the RLE with calf tenderness and positive Homans sign. Concern for DVT vs dependent edema vs ? CHF although no evidence of overt fluid overload. Lower suspicion for PE, ACS, pleural effusion Plan: Labs, ultrasound, re-evaluate Please refer to course for remaining clinical decision making, interpretation of labs/imaging results, and discussions with consultants and/or family members. Differential Diagnosis Differential Diagnoses: The differential diagnosis associated with the presentation includes As above Admission/Observation Consideration of admission/observation: Escalation of care including admission/observation considered Lab Data [facility] Lab Attestation statement: I reviewed the patient's lab results. 09/16/25 08:48 09/16/25 08:48 Labs: Lab Results 09/16/25 Range/Units 08:48 WBC 13.6 H (4.8-10.8) X10*3/uL RBC 5.07 (4.20-5.50) X10*6/uL Hgb 15.5 (12.0-16.0) g/dl Hct 47.0 (37.0-47.0) % MCV 92.7 (80.0-98.0) fL MCH 30.6 (27.0-33.0) pg MCHC 33.0 (31.0-35.0) g/dl RDW 13.1 (11.0-16.0) % Plt Count 279 (160-400) X10*3/uL MPV 10.3 (9.4-12.3) fL Immature Gran % (Auto) 0.4 (0.0-0.4) % Neut % (Auto) 61.4 (45-73) % Lymph % (Auto) 28.8 (20-40) % [place] % (Auto) 6.4 (2-11) % Eos % (Auto) 2.5 (0-4) % Baso % (Auto) 0.5 (0-2) % Lymph # (Auto) 3.9 (1.2-4.9) X10*3/uL [place] # (Auto) 0.9 (0.1-1.2) X10*3/uL Eos # (Auto) 0.3 (0.0-0.4) X10*3/uL Baso # (Auto) 0.1 (0.0-0.2) X10*3/uL Abs Immat Gran (auto) 0.06 H (0.00-0.03) X10*3/uL Absolute Neuts (auto) 8.4 H (2.0-8.3) x10*3/uL Absolute Nucleated RBC 0.000 (0.0-0.012) X10*3/uL Nucleated RBC % (auto) 0.0 (0.0-0.2) /100WBC Sodium 143 (135-145) mmol/L Potassium 4.3 (3.3-5.1) mmol/L Chloride 108 (96-108) mmol/L Carbon Dioxide 27 (22-29) mmol/L Anion Gap 12 (12-20) BUN 10 (9-16) mg/dL Creatinine 1.05 (0.5-1.4) mg/dL Estim Creat Clear Calc 56.5 Estimated GFR 54 Random Glucose 124 H (60-115) mg/dL Calcium 9.9 (8.4-10.2) mg/dL Total Bilirubin 0.2 (0.0-1.0) mg/dL AST 35 H (5-31) U/L ALT 40 H (0-31) U/L Alkaline Phosphatase 152 H (39-117) U/L Total Creatine Kinase 52 (26-140) U/L NT-Pro-B Natriuret Pep 31.2 (<300) pg/mL Total Protein 8.0 (6.5-8.0) g/dL Albumin 4.6 (3.5-5.0) g/dL Independent Interpretation I performed an independent interpretation of an: Ultrasound Radiology Impression Discussion of test interpretation with radiology: I have reviewed the radiologist's reading. External Record Review External record reviewed: Inpatient record, Office record, Outpatient record, Prior outpatient labs, Prior outpatient radiology, Primary care record and Outside ED record Tests considered The following testing was considered but not selected: As above Prescription Management I considered prescription management with: Pain Medication Chronic Conditions Patient?s care impacted by: Diabetes Social Determinants Patient?s care significantly limited by Social Determinants of Health including: Other Social Determinant of Health Discharge Plan Discharge Clinical Impression: Bilateral lower extremity pain Patient Disposition: Home, Self-Care Instructions: Leg Cramps (ED) Additional Instructions: Your lab work and ultrasound are unremarkable/reassuring. Take Tylenol and ibuprofen at home as needed for pain. Follow up closely with your primary care doctor If symptoms persist or worsening you develop increasing swelling in her legs, shortness of breath, or chest pain please return to the emergency department Prescriptions: No Action mirtazapine 45 mg tablet 45 mg PO BEDTIME escitalopram oxalate [Lexapro] 20 mg tablet 20 mg PO DAILY Ozempic 0.25 mg or 0.5 mg (2 mg/3 mL) pen injector 0.25 mg subcut QWEEK Rx Instructions: for 4 weeks buspirone 10 mg tablet 10 mg PO TID metformin 500 mg tablet 500 mg PO DAILY zolpidem 5 mg tablet 5 mg PO BEDTIME Referrals: Name,MD Hakan [Primary Care Provider, Internal Medicine] - 1 week Interventions: ED Discharge Assessment Last Done: 09/16/25 11:46 Discharge Date/Time: 09/16/25 11:46 Print Language: Puerto Rican
[2025-09-16 08:58] LABS: Hematocrit 47.0 % (37.0-47.0); Hemoglobin 15.5 g/dl (12.0-16.0); Imm Gran Abs Auto 0.06 X10*3/uL (0.00-0.03); Imm Gran Pct Auto 0.4 % (0.0-0.4); Lymphocytes Absolute Auto 3.9 X10*3/uL (1.2-4.9); Mean Corpuscular HGB Conc 33.0 g/dl (31.0-35.0); Mean Corpuscular Hemoglobin 30.6 pg (27.0-33.0); Mean Corpuscular Volume 92.7 fL (80.0-98.0); NRBC Abs Auto 0.000 X10*3/uL (0.0-0.012); NRBC Pct Auto 0.0 /100WBC (0.0-0.2); Platelet Count 279 X10*3/uL (160-400); Red Blood Count 5.07 X10*6/uL (4.20-5.50); White Blood Count 13.6 X10*3/uL (4.8-10.8)
[2025-09-16 09:16] LABS: Alanine Aminotransferase 40 U/L (0-31); Albumin Level 4.6 g/dL (3.5-5.0); Alkaline Phosphatase 152 U/L (39-117); Anion Gap 12 (12-20); Aspartate Amino Transferase 35 U/L (5-31); Blood Urea Nitrogen 10 mg/dL (9-16); Calcium 9.9 mg/dL (8.4-10.2); Carbon Dioxide 27 mmol/L (22-29); Chloride 108 mmol/L (96-108); Creatinine Clr Calc Pharmacy 56.5; Estimated Glomerular Filt Rate 54; Potassium 4.3 mmol/L (3.3-5.1); Sodium 143 mmol/L (135-145); Total Protein 8.0 g/dL (6.5-8.0)
--- OUTSIDE RECORDS SUMMARY | 2025-09-16 09:52 | XMS_ITS | Clinical Summary ---
Author Organization [employer] Address [address] [facility] [address] [place] [address] Care Team Providers Care Senior Staff Specialized Employment Name Role Phone Name, Hakan KATE Primary Care Provider [phone] Allergies Active Allergy Reactions Criticality Noted Date Comments Bupropion 08/07/2018 Clindamycin 08/07/2018 Medications escitalopram (Lexapro) 20 MG tablet Take 20 mg by mouth in the morning. 5 Active mirtazapine (Remeron) 45 MG tablet Take 45 mg by mouth at bedtime. 5 Active atorvastatin (Lipitor) 80 MG tablet Take 1 tablet (80 mg) by mouth Once per day. 5 03/29/20 26 Active Blood Glucose Monitoring Suppl (FreeStyle Dixie Lite) w/Device kitIndications: Type 2 diabetes mellitus treated without insulin (HCC) Use to test blood sugar 1 times daily 1 kit 5 Active metFORMIN (Glucophage) 500 MG tabletIndicatio ns:Type 2 Diabetes Mellitus Take 1 tablet (500 mg) by mouth Once per day. 90 tablet 3 5 05/10/20 26 Active Lancets miscIndications :Type 2 diabetes mellitus treated without insulin (HCC) USE TO TEST BLOOD SUGAR ONCE A DAY 100 each 3 5 Active Alcohol Swabs 70 % padsIndications :Type 2 diabetes mellitus treated without insulin (HCC) USE TO TEST BLOOD SUGAR ONCE A DAY 100 each 3 5 Active Accu-Chek Softclix Lancets lancetsIndicati ons:Type 2 diabetes mellitus without complication, without long-term current use of insulin (HCC) Use to check blood sugar by subcutaneous route one time daily 100 each 11 5 Active Blood Glucose Monitoring Suppl (Accu-Chek Bernadette Plus) w/Device kitIndications: Type 2 diabetes mellitus without complication, without long-term current use of insulin ([facility]) Use to check blood sugar by subcutaneous route one time daily 1 kit 5 Active glucose blood (Accu-Chek Bernadette Plus) test stripIndication s:Type 2 diabetes mellitus without complication, without long-term current use of insulin ([facility]) Use to check blood sugar bu subcutaneous route one time daily 100 each 11 5 Active Lancet Devices (Autolet) lancing deviceIndicatio ns:Type 2 diabetes mellitus without complication, without long-term current use of insulin ([facility]) 1 each by Other route Once per day. Use to check blood sugar by subcutaneous route one time daily 90 each 3 5 06/16/20 26 Active busPIRone (Buspar) 10 MG tablet 5 Active Ambien 5 MG tablet 5 Active clotrimazole (Lotrimin) 1 % cream apply topically to the affected area twice daily 5 Active Ozempic, 0.25 or 0.5 MG/DOSE, 2 MG/3ML solution pen-injector Inject 0.5 mg under the skin 1 (one) time per week. 2INJECT 0.25MG SUBCUTANEOUS ONCE WEEKLY FOR 4 WEEKS THEN INCREASE TO 0.5MG ONCE WEEKLY 2 mL 3 5 Active Active Problems Problem Noted Date Diagnosed Date Tobacco use disorder 07/21/2025 Obesity (BMI 30-39.9) 07/21/2025 Presence of implanted infusion pump 03/29/2025 Overview (03/29/2025): She has implanted Dilaudid infusion pump managed at [facility] pain clinic since 2023 [facility] 03/28/2025 Type 2 diabetes mellitus 03/20/2020 Steatosis of liver 12/25/2018 LFT elevation 06/23/2018 Anxiety 04/13/2018 Chronic low back pain 04/13/2018 Depressive disorder 04/13/2018 Overview (03/29/2025): Prescribing psychiatric provider [facility] [place] H/O: hysterectomy 04/13/2018 History of appendectomy 04/13/2018 Migraine 04/13/2018 Resolved Problems Problem Noted Date Diagnosed Date Resolved Date Herpes zoster without complication 06/23/2018 03/29/2025 Spinal cord stimulator status 04/13/2018 04/15/2025 Overview (03/29/2025): This was removed in 2023 Encounters Date Type Department Care Team Description 09/15/2025 Telephone [facility] [address] [place] [address] Hakan Hatch MD Nurse Triage 08/15/2025 Refill [facility] [address] [place] [address] Hakan Hatch MD 08/05/2025 9:00 AM EDT Office Visit [facility] OPTOMET[facility] [address] [place] [address] Jesus, Nadiya, OD Type 2 diabetes mellitus without retinopathy (CMS/HCC) (Primary Dx); Choroidal nevus of left eye; Chorioretinal scar of both eyes; Early cataracts, bilateral; Presbyopia 08/05/2025 Travel 08/03/2025 Travel 07/25/2025 Travel 07/21/2025 9:00 AM EDT Office Visit [facility] [address] [place] [address] Hakan Hatch MD Type 2 diabetes mellitus treated without insulin (CMS/HCC) (Primary Dx); Obesity (BMI 30-39.9); Healthcare maintenance; Encounter for screening mammogram for malignant neoplasm of breast; Chronic low back pain with sciatica, sciatica laterality unspecified, unspecified back pain laterality; Tobacco use disorder 07/21/2025 Telephone [facility] [address] [place] [address] Dayna Prescott [place] Referral (Lung screening ) 07/21/2025 Travel 07/14/2025 Travel 07/13/2025 Refill [facility] [address] [place] [address] Hakan Hatch MD 06/25/2025 Refill [facility] [address] [place] [address] Hakan Hatch MD Type 2 diabetes mellitus treated without insulin ([facility]) from Last 3 Months Immunizations [...] Description 10/18/2025 9:00 AM EST Office Visit [facility] [address] [place] [address] Name, MD Hakan [address] [place] [address] Health Maintenance Due Date Last Done Comments [...] 03/29/2026 03/29/2025, 03/29/20 SDOH Screening 03/29/2026 03/29/2025 Diabetes: Urine Protein [...] Procedure Name Priority Date/Time Associated Diagnosis Comments COMPREHENSIVE METABOLIC PANEL Routine 09/16/2025 8:48 AM EDT CBC WITH AUTO DIFFERENTIAL Routine 09/16/2025 8:48 AM EDT POCT GLUCOSE Routine 07/21/2025 9:01 AM EDT Type 2 diabetes mellitus treated without insulin ([facility]/HCC) ALBUMIN, RANDOM URINE W/CREATININE Routine 04/08/2025 8:51 AM EDT Type 2 diabetes mellitus treated without insulin ([facility]/HCC) LIPID PANEL, STANDARD Routine 04/08/2025 8:51 AM EDT Type 2 diabetes mellitus treated without insulin ([facility]) POCT GLYCATED HEMOGLOBIN, TOTAL Routine 03/29/2025 10:35 AM EDT Type 2 diabetes mellitus treated without insulin ([facility]) BI MAMMOGRAM SCREENING BILATERAL Routine 10/25/2021 1:09 PM EST HM COLONOSCOPY Routine 03/22/2021 10:39 AM EDT from Last 3 Months or Most Recently Relevant to Health Maintenance Results * (ABNORMAL) CBC auto differential (09/16/2025 8:48 AM EDT) White Blood Count 13.6(H) 4.8 - 10.8 X10*3/uL [facility] Red Blood Count 5.07 4.20 - 5.50 X10*6/uL [facility] Hemoglobin 15.5 12.0 - 16.0 g/dl [facility] Hematocrit 47.0 37.0 - 47.0 % [facility] Mean Corpuscular Volume 92.7 80.0 - 98.0 fL [facility] Mean Corpuscular Hemoglobin 30.6 27.0 - 33.0 pg [facility] Mean Corpuscular HGB Conc 33.0 31.0 - 35.0 g/dl [facility] Red Cell Distribution Width 13.1 11.0 - 16.0 % [facility] Platelet Count 279 160 - 400 X10*3/uL [facility] Mean Platelet Volume 10.3 9.4 - 12.3 fL [facility] Neutrophils Percent Auto 61.4 45 - 73 % [facility] Imm Gran Pct Auto 0.4 0.0 - 0.4 % [facility] Lymphocytes Percent Auto 28.8 20 - 40 % [facility] Monocytes Percent Auto 6.4 2 - 11 % [facility] Eosinophils Percent Auto 2.5 0 - 4 % [facility] Basophils Percent Auto 0.5 0 - 2 % [facility] NRBC Pct Auto 0.0 0.0 - 0.2 /100WBC [facility] Neutrophils Absolute Auto 8.4(H) 2.0 - 8.3 x10*3/uL [facility] Imm Gran Abs Auto 0.06(H) 0.00 - 0.03 X10*3/uL [facility] Lymphocytes Absolute Auto 3.9 1.2 - 4.9 X10*3/uL [facility] Monocytes Absolute Auto 0.9 0.1 - 1.2 X10*3/uL [facility] Eosinophils Absolute Auto 0.3 0.0 - 0.4 X10*3/uL [facility] Basophils Absolute Auto 0.1 0.0 - 0.2 X10*3/uL [facility] NRBC Abs Auto 0.000 0.0 - 0.012 X10*3/uL [facility] 09/16/2025 8:48 AM EDT 09/16/2025 8:52 AM EDT us Generic External Data Provider LAB BLOOD ORDERAB LES Final Result [facility] [address] [place] [phone] * (ABNORMAL) Comprehensive Metabolic Panel (09/16/2025 8:48 AM EDT) Sodium 143 135 - 145 mmol/L [facility] Potassium 4.3 3.3 - 5.1 mmol/L [facility] Chloride 108 96 - 108 mmol/L [facility] Carbon Dioxide 27 22 - 29 mmol/L [facility] Anion Gap 12 12 - 20 [facility] Urea Nitrogen (BUN) 10 9 - 16 mg/dL [facility] Creatinine, Serum 1.05 0.5 - 1.4 mg/dL [facility] Creatinine Clr Calc Pharmacy 56.5 [facility] Comment:Provided height and weight: 154.94 cm,79.8 kg.eGFR (calculated from the MDRD study equation) and eCrCl(calculated from the Cockcroft-Gault equation) are based ondifferent parameters and may not yield comparable results.If eCrCl result is absurd, please check patient'sheight/weight. Estimated Glomerular Filt Rate 54 [facility] Comment:Chronic Kidney Disea se: Estimated GFR < 60 mL/min/1.73v7Uspxyc Kidney Disease: Estimated GFR < 15 mL/min/1.73m2 Glucose 124(H) 60 - 115 mg/dL [facility] Calcium 9.9 8.4 - 10.2 mg/dL [facility] Bilirubin, Total 0.2 0.0 - 1.0 mg/dL [facility] Aspartate Amino Transferase 35(H) 5 - 31 U/L [facility] Alanine Aminotransferase 40(H) 0 - 31 U/L [facility] Total Protein 8.0 6.5 - 8.0 g/dL [facility] Albumin Level 4.6 3.5 - 5.0 g/dL [facility] Alkaline Phosphatase 152(H) 39 - 117 U/L [facility] 09/16/2025 8:48 AM EDT 09/16/2025 8:52 AM EDT us Generic External Data Provider LAB BLOOD ORDERAB LES Final Result [facility] [address] [place] [phone] * POCT Glucose (07/21/2025 9:01 AM EDT) Glucose Blood, POC 124 60 - 200 mg/dL QC Media Lot # [id number] Lot# Expiration Date Blood Capillary blood specimen / Unknown 07/21/2025 9:01 AM EDT us Hakan Hatch MD POINT OF CARE TEST ENTER/EDIT OR DERABLES Final Result * Albumin, Random Urine W/Creatinine (04/08/2025 8:51 AM EDT) Creatinine, Urine 111.88 mg/dL [facility] Microalbumin Urine 21.0 mg/L [facility] Microalbum Creatinine Ratio Ur 18.7 <30 ug/mg cr [facility] Comment:Albumin/Creatinine R atio Reference Ranges: Normal: < 30 ug/mg creatinine Microalbuminuria: 30 - 300 ug/mg creatinineClinical Albuminuria: > 300 ug/mg creatinine Urine (Urine, Random) 04/08/2025 8:51 AM EDT 04/08/2025 10:59 AM EDT us Hakan Hatch MD LAB URINE ORDERABLES Final Resul t [facility] [address] [place] [phone] * (ABNORMAL) Lipid Panel, Standard (04/08/2025 8:51 AM EDT) Triglycerides 275(H) <150 mg/dL [facility] Comment:Desirable Triglyceri de: less than 150 mg/dLBorderline High Triglyceride 150-199 mg/dLHigh Triglyceride: 200-499 mg/dLVery High Triglyceride: greater than or equal to 5OO mg/dL Cholesterol 150 <200 mg/dL [facility] Comment:Desirable Cholestero l: less than 200 mg/dLBorderline High Cholesterol: 200-239 mg/dLHigh Cholesterol: greater than 239 mg/dL LDL Cholesterol Calculated 61 <100 mg/dL [facility] Comment:Desirable LDL: less than 100 mg/dLNear Optimal/Above Optimal LDL: 110- 129 mg/dLBorderline High LDL: 130-159 mg/dLHigh LDL: 160-189 mg/dLVery High LDL: greater than or equal to 190 mg/dL HDL Cholesterol 34(L) >40 mg/dL [facility] Comment:Desirable HDL: great er than 40 mg/dL Note: This HDL assay may give artificially low results in patients with liver disease. Blood Venous blood specimen / Unknown 04/08/2025 8:51 AM EDT 04/08/2025 11:23 AM EDT us Hakan Hatch MD LAB BLOOD ORDERABLES Final Resul t [facility] [address] [place] [phone] * (ABNORMAL) POCT HGB A1C (03/29/2025 [...] 5 years see legacy note from 03/22/2021 Historical Provider HEALTH MAINTENANCE Edited Result - Final from Last 3 Months or Most Recently Relevant to Health Maintenance Insurance [facility] D[facility] COMPLETE Care Teams Senior Staff Specialized Employment Relationship Specialty Start Date End Date Name, MD Hakan [address] [place] [id number] PCP - General Internal Medicine 03/29/25
--- OUTSIDE RECORDS SUMMARY | 2025-09-16 09:52 | XMS_ITS | Encounter Summary ---
Author Organization [employer] Address 75 [facility] 7t [place] [address] Care Team Providers Care Bench Technician Name Role Phone Name, Hakan KATE Primary Care Provider [phone] Encounter Details Date Type Department Care Team (Late st Contact Info) Description 01/11/2025 Telephone [facility] MEDICINE [address], [place] [phone] Name, MD Hakan [address] [place] [address] Social History Tobacco Use Types Packs/Day Years [...] state Last seen 1 year ago in [place] App[employer] reminder and release form sent via mail . documented in this encounter Plan of Treatment Upcoming Encounters Date Type Department Care Team (Late st Contact Info) Description 10/18/2025 9:00 AM EST Office Visit [facility] MEDICINE [address] [place] [address] Name, [place] [address] documented as of this encounter Visit Diagnoses Not on filedocumented in this encounter Care Teams Bench Technician Relationship Specialty Start Date End Date Name, MD Hakan [address] [place] [address] PCP - General Internal Medicine 03/29/25 documented as of this encounter
--- OUTSIDE RECORDS SUMMARY | 2025-09-16 09:52 | XMS_ITS | Encounter Summary ---
Author Organization [employer] Address 75 [facility] [address]t [place] [address] Care Team Providers Care Computer Technologist Name Role Phone Name, Hakan KATE Primary Care Provider [phone] Encounter Details Date Type Department Care Team ([facility] st Contact Info) Description 04/08/2025 Orders Only [facility] [address] [place] [address] Provider, MD Tabatha Social History Tobacco Use [...] AM EST Office Visit [facility] MEDICINE [address] [place] [address] Name, MD Hakan [address] [place] [address] documented as of this encounter Procedures Procedure Name Priority Date/Time Associated Diagnosis Comments CBC WITH AUTO DIFFERENTIAL Routine 09/16/2025 8:48 AM EDT COMPREHENSIVE METABOLIC PANEL Routine 09/16/2025 8:48 AM EDT HM COLONOSCOPY Routine 03/22/2021 10:39 AM EDT documented in this encounter Results * (ABNORMAL) Comprehensive Metabolic Panel (09/16/2025 8:48 AM EDT) Sodium 143 135 - 145 mmol/L [facility] Potassium 4.3 3.3 - 5.1 mmol/L [facility] Chloride 108 96 - 108 mmol/L [facility] Carbon Dioxide 27 22 - 29 mmol/L [facility] Anion Gap 12 12 - 20 [facility] Urea Nitrogen (BUN) 10 9 - 16 mg/dL [facility] Creatinine, Serum 1.05 0.5 - 1.4 mg/dL [facility] Creatinine Clr Calc Pharmacy 56.5 [facility] Comment:Provided height and weight: 154.94 cm,79.8 kg.eGFR (calculated from the MDRD study equation) and eCrCl(calculated from the Cockcroft-Gault equation) are based ondifferent parameters and may not yield comparable results.If eCrCl result is absurd, please check patient'sheight/weight. Estimated Glomerular Filt Rate 54 [facility] Comment:Chronic Kidney Disea se: Estimated GFR < 60 mL/min/1.59f6Dpirfx Kidney Disease: Estimated GFR < 15 mL/min/1.73m2 Glucose 124(H) 60 - 115 mg/dL [facility] Calcium 9.9 8.4 - 10.2 mg/dL [facility] Bilirubin, Total 0.2 0.0 - 1.0 mg/dL [facility] Aspartate Amino Transferase 35(H) 5 - 31 U/L [facility] Alanine Aminotransferase 40(H) 0 - 31 U/L [facility] Total Protein 8.0 6.5 - 8.0 g/dL [facility] Albumin Level 4.6 3.5 - 5.0 g/dL [facility] Alkaline Phosphatase 152(H) 39 - 117 U/L [facility] 09/16/2025 8:48 AM EDT 09/16/2025 8:52 AM EDT us Generic External Data Provider LAB BLOOD ORDERAB LES Final Result [facility] [address] [place] [address] [phone] * (ABNORMAL) CBC auto differential (09/16/2025 8:48 AM EDT) White Blood Count 13.6(H) 4.8 - 10.8 X10*3/uL [facility] Red Blood Count 5.07 4.20 - 5.50 X10*6/uL [facility] Hemoglobin 15.5 12.0 - 16.0 g/dl [facility] Hematocrit 47.0 37.0 - 47.0 % [facility] Mean Corpuscular Volume 92.7 80.0 - 98.0 fL [facility] Mean Corpuscular Hemoglobin 30.6 27.0 - 33.0 pg [facility] Mean Corpuscular HGB Conc 33.0 31.0 - 35.0 g/dl [facility] Red Cell Distribution Width 13.1 11.0 - 16.0 % [facility] Platelet Count 279 160 - 400 X10*3/uL [facility] Mean Platelet Volume 10.3 9.4 - 12.3 fL [facility] Neutrophils Percent Auto 61.4 45 - 73 % [facility] Imm Gran Pct Auto 0.4 0.0 - 0.4 % [facility] Lymphocytes Percent Auto 28.8 20 - 40 % [facility] Monocytes Percent Auto 6.4 2 - 11 % [facility] Eosinophils Percent Auto 2.5 0 - 4 % [facility] Basophils Percent Auto 0.5 0 - 2 % [facility] NRBC Pct Auto 0.0 0.0 - 0.2 /100WBC [facility] Neutrophils Absolute Auto 8.4(H) 2.0 - 8.3 x10*3/uL [facility] Imm Gran Abs Auto 0.06(H) 0.00 - 0.03 X10*3/uL [facility] Lymphocytes Absolute Auto 3.9 1.2 - 4.9 X10*3/uL [facility] Monocytes Absolute Auto 0.9 0.1 - 1.2 X10*3/uL [facility] Eosinophils Absolute Auto 0.3 0.0 - 0.4 X10*3/uL [facility] Basophils Absolute Auto 0.1 0.0 - 0.2 X10*3/uL [facility] NRBC Abs Auto 0.000 0.0 - 0.012 X10*3/uL [facility] 09/16/2025 8:48 AM EDT 09/16/2025 8:52 AM EDT us Generic External Data Provider LAB BLOOD ORDERAB LES Final Result [facility] [address] [place] [phone] * Hm Colonoscopy (03/22/2021 10:39 AM EDT) [...] documented as of this encounter Care Teams Computer Technologist Relationship Specialty Start Date End Date Name, MD Hakan [address] [place] [address] PCP - General Internal Medicine 03/29/25 documented as of this encounter
--- OUTSIDE RECORDS SUMMARY | 2025-09-16 09:52 | XMS_ITS | Encounter Summary ---
Author Organization [employer] Address 75 [facility] 7t [place] [address] Care Team Providers Care Principal Cloud Architect Name Role Phone Name, Hakan KATE Primary Care Provider [phone] Reason for Visit * Reason Onset Date Comments Nurse Triage 09/15/2025 Encounter Details Date Type Department Care Team ([facility] st Contact Info) Description 09/15/2025 Telephone [facility] MEDICINE [address] [place], [place] [phone] Name, MD Hakan [address] [place] [address] Nurse Triage Social History Tobacco Use Types Packs/Day Years [...] encounter Miscellaneous Notes * Telephone Encounter - Peggy Mcgregor RN - 09/15/2025 11:34 AM EDT Call returned to pt who c/o 09/02 bilateral calf pain and bilateral pedal edema x 2 weeks. Denies injury, numbness, tingling. Denies sob, numbness, and tingling. No redness reported. Reports family history of blood clots. Pt reports she has not taken any medication for this and is aware of upcomingappointment scheduled with pcp. Reports that elevating her feet helps somewhat with edema. Recommended that pt come to [facility] today for evaluation. Pt states she does not have anyone to bring her which requires advance notice. Offered Uber. Pt declines stating that she will call transportation first. Protocol Used: Leg Pain (Adult) Protocol-Based Disposition: Go to Office or Video Visit Now Video visit offer not recorded Positive Triage Questions: * Severe pain (e.g., excruciating, unable to do any normal activities) * Patient wants to be seen * All higher-acuity triage questions were negative Care Advice Discussed: * Reasons To Call Back - Signs of infection occur (such as spreading redness, warmth, fever) - You become worse * Telephone Encounter - Bryn Hanley - 09/15/2025 11:21 AM EDT Symptom: Leg Pain - Not From Injury Outcome: Schedule an urgent appointment (within 1 hour) or talk to a nurse or provider soon Reason: Severe pain now The caller accepted this outcome. Contact pt at [phone] documented in this encounter Plan of Treatment Upcoming Encounters Date Type Department Care Team (Late st Contact Info) Description 10/18/2025 9:00 AM EST Office Visit [facility] MED[facility]INE [address] [place] [address] Name, MD Hakan [address] [place] [address] documented as of this encounter Visit Diagnoses Not on filedocumented in this encounter Additional Health Concerns Assessment Noted Time PHQ-9 Depression Total Score: 3 03/29/20 11:01 AM EDT documented as of this encounter Care Teams Principal Cloud Architect Relationship Specialty Start Date End Date Name, MD Hakan [address] [place] [address] PCP - General Internal Medicine 03/29/25 documented as of this encounter
--- OUTSIDE RECORDS SUMMARY | 2025-09-16 09:53 | XMS_ITS | Encounter Summary ---
Author Organization [employer] Address 75 [facility] 7t [place] [address] Care Team Providers Care Styrene Dehydration Reactor Operator Name Role Phone Name, Hakan KATE Primary Care Provider [phone] Reason for Visit * Reason Onset Date Comments Med Refill 07/13/2025 Encounter Details Date Type Department Care Team ([facility] st Contact Info) Description 07/13/2025 Refill [facility] MEDICINE [address] [place], [place] [phone] Name, MD Hakan [address] [place] [address] Social History Tobacco Use Types Packs/Day Years [...] Description 10/18/2025 9:00 AM EST Office Visit [facility] MEDICINE [address] [place] [address] Name, MD Hakan [address] [place] [address] documented as of this encounter Visit Diagnoses Not on filedocumented in this encounter Additional Health Concerns Assessment Noted Time PHQ-9 Depression Total Score: 3 03/29/20 25 11:01 AM EDT documented as of this encounter Care Teams Styrene Dehydration Reactor Operator Relationship Specialty Start Date End Date NameHakan MD [address] [place] [address] PCP - General Internal Medicine 03/29/25 documented as of this encounter
--- OUTSIDE RECORDS SUMMARY | 2025-09-16 09:53 | XMS_ITS | Encounter Summary ---
Author Organization [employer] Address 75 [facility] 7t [place] [address] Care Team Providers Care Category Development Manager Name Role Phone Name, Hakan KATE Primary Care Provider [phone] Reason for Visit * Reason Comments Med Refill Encounter Details Date Type Department Care Team ([facility] st Contact Info) Description 06/25/2025 Refill [facility] MEDICINE [address] [place], [place] [phone] Name, MD Hakan [address] [place] [address] Type 2 diabetes mellitus treated without insulin ([facility]) Social History Tobacco Use Types Packs/Day [...] Description 10/18/2025 9:00 AM EST Office Visit [facility] MEDICINE [address] [place] [phone] NameHakan MD [address] [place] [address] documented as of this encounter Visit Diagnoses Diagnosis Type 2 diabetes mellitus treated without insulin (HCC) documented in this encounter Additional Health Concerns Assessment Noted Time PHQ-9 Depression Total Score: 3 03/29/20 11:01 AM EDT documented as of this encounter Care Teams Category Development Manager Relationship Specialty Start Date End Date NameHakan MD [address] [place] [address] PCP - General Internal Medicine 03/29/25 documented as of this encounter
[2025-09-16 10:38] LABS: NT Pro B Type Natriuretic Pept 31.2 pg/mL (<300)
[2025-09-16 10:52] VITALS: BP 108/57; PULSE 74; RESP 14; TEMP 36.8; O2SAT 95
[2025-09-16 11:46] VITALS: BP 108/57; PULSE 74; RESP 14; TEMP 36.8; O2SAT 95
== END 2025-09-16 11:46 | disposition home or self-care (01) ==
PROVIDERS: Physician Assistant; Emergency Provider Emergency Medicine; PCP Internal Medicine Geriatric Medicine
DX: M79.662 Pain in left lower leg (principal); M79.661 Pain in right lower leg; R60.0 Localized edema; E11.9 Type 2 diabetes mellitus without complications; Z79.899 Other long term (current) drug therapy; F17.210 Nicotine dependence, cigarettes, uncomplicated
CPT/HCPCS: 36415; 80053; 82550; 83880; 85025; 93970; 99284; J1885

== ENCOUNTER → 2025-09-16 08:38 | Outpatient (BNV) | payer MEDICARE, SELFPAY | PROVIDERS: Emergency Provider Emergency Medicine; PCP Internal Medicine Geriatric Medicine; Visit Provider Radiology Diagnostic Radiology | DX: M79.604 Pain in right leg (principal); M79.605 Pain in left leg | CPT/HCPCS: 93970 ==

== ENCOUNTER 2025-10-18 09:44 | Outpatient (REF) | payer MEDICARE, SELFPAY ==
--- OUTSIDE RECORDS SUMMARY | 2025-10-18 09:00 | XMS_ITS | Encounter Summary ---
Author Organization [employer] Address 75 [facility] 7t [place] [address] Care Team Providers Care Line Installation Supervisor Name Role Phone Name, Hakan KATE Primary Care Provider [phone] Reason for Visit * Reason Comments Follow-up Encounter Details Date Type Department Care Team ([facility] Contact Info) Description 10/18/2025 9:00 AM EST Office Visit [facility] MEDICINE [address] [place] [address] [phone] Name, MD Hakan [address] [place] [address] Type 2 diabetes mellitus treated without insulin (HCC) (Primary Dx); Mild intermittent asthma without complication; Tobacco use disorder; Family history of Reuben thyroiditis Social History Tobacco Use Types Packs/Day Years [...] AM EDT documented as of this encounter Last Filed Vital Signs Vital Sign Reading Time Taken Comments Blood Pressure 102/62 10/18/2025 9:08 AM EST Pulse 90 10/18/2025 9:08 AM EST Temperature 35.3 C (95.6 F) 10/18/2025 9:08 AM EST Respiratory Rate 12 10/18/2025 9:08 AM EST Oxygen Saturation 97% 10/18/2025 9:08 AM EST Inhaled Oxygen Concentration - - Weight 80.2 kg (176 lb 12.8 oz) 10/18/2025 9:08 AM EST Height 154.9 cm (5' 1 ) 10/18/2025 9:08 AM EST Body Mass Index 33.41 10/18/2025 9:08 AM EST documented in this encounter Progress Notes * Hakan Hatch MD - 10/18/2025 9:00 AM EST Subjective Patient ID: Keli Zhou is a 55 y.o. female who presents for Follow-up. Patient comes for a follow-up visit. Blood sugar is very well-controlled based on her hemoglobin A1c. Current medication regimen includes Ozempic and metformin. She is tolerating the use of Ozempic without any GI side effects. Unfortunately she has not lost much weight on the dose of 0.5 mg weekly.The patient is interested in increasing to 1 mg a week and I agreed. The patient is a heavy smoker and she complains of a few days of cough and wheezing. She denies anyfevers, chills, sore throat, runny nose or recent sick contacts. She is up-to-date with her flu vaccine. She tells me she received PCV 20 vaccine a few years ago in [place]. She tells me she was diagnosed with mild asthma in the past. She rarely needs albuterol. She has not gone to the ER for asthma in many years. She was already referred for low radiation CT scan of the chest that is pending atthe time of this visit. Review of Systems Constitutional: Negative for chills and fever. HENT: Negative for sore throat. Respiratory: Positive for cough and wheezing. Negative for shortness of breath. Symptoms are worse at night Cardiovascular: Negative for chest pain, palpitations and leg swelling. Gastrointestinal: Negative for abdominal pain. Objective Vitals: 10/18/25 0908 BP: 102/62 BP Location: Left arm Patient Position: Sitting BP Cuff Size: Adult Pulse: 90 Resp: 12 Temp: 95.6 ??F (35.3 ??C) TempSrc: Temporal SpO2: 97% Weight: 176 lb 12.8 oz (80.2 kg) Height: 5' 1 (1.549 m) Physical Exam Constitutional: Appearance: Normal appearance. Cardiovascular: Rate and Rhythm: Normal rate and regular rhythm. Heart sounds: No murmur heard. No gallop. Pulmonary: Effort: Pulmonary effort is normal. No respiratory distress. Breath sounds: Normal breath sounds. No wheezing. Musculoskeletal: Right lower leg: No edema. Left lower leg: No edema. Neurological: Mental Status: She is alert. Lab Results Component Value Date WBC 13.6 (H) 09/16/2025 HGB 15.5 09/16/2025 HCT 47.0 09/16/2025 MCV 92.7 09/16/2025 PLT 279 09/16/2025 Lab Results Component Value Date GLUCOSE 124 (H) 09/16/2025 NA 143 09/16/2025 K 4.3 09/16/2025 CO2 27 09/16/2025 CL 108 09/16/2025 BUN 10 09/16/2025 CREATININE 1.05 09/16/2025 Lab Results Component Value Date HGBA1C 5.9 (A) 10/18/2025 HGBA1C 6.5 (A) 03/29/2025 HGBA1C 6.4 (H) 02/02/2021 Assessment/Plan Diagnoses and all orders for this visit: Type 2 diabetes mellitus treated without insulin (HCC) Comments: Avoid sweets and soda Continue current dose of metformin and statin Increase Ozempic to 1 mg weekly Orders: - POCT Glucose - POCT Hgb A1c Mild intermittent asthma without complication Comments: I started the patient on albuterol to use as needed for cough and wheezing. I recommended daily use of Arnuity. I prescribed the patient nicotine patches. We will provide her with a phone number to reschedule appointment for low radiation CT scan of the chest. Orders: - albuterol 108 (90 Base) MCG/ACT inhaler; Inhale 2 puffs every 4 (four) hours if needed for wheezing. - fluticasone furoate (Arnuity Ellipta) 100 MCG/ACT inhaler; Inhale 1 puff Once per day. Rinse mouth with water after use to reduce aftertaste and incidence of candidiasis. Do not swallow. Tobacco use disorder - nicotine (Nicoderm, Step 1) 21 MG/24HR patch; Place 1 patch on the skin 1 (one) time each day at the same time. Family history of Reuben thyroiditis Comments: She tells me her daughter was recently diagnosed with Reuben thyroiditis. The patient does not have any symptoms of hyper or hypothyroidism. No goiter. Will check TSH. Orders: - TSH W/Reflex to FT4; Future Other orders - semaglutide (Ozempic, 1 MG/DOSE,) 2 MG/1.5ML solution pen-injector; Inject 1 mg under the skin 1 (one) time per week. Future Appointments Date Time Provider Department Center 01/18/2026 9:30 AM Hakan Hatch MD MEDICINE [facility] documented in this encounter Plan of Treatment Upcoming Encounters Date Type Department Care Team (Late st Contact Info) Description 01/18/2026 9:30 AM EST Office Visit [facility] MEDICINE [address] [place] [address] Hakan Hatch MD [address] [place] [address] Scheduled Orders Name Type Priority Associated Diagnoses Orde r Schedule TSH W/Reflex to FT4 Lab Routine Family history of Reuben thyroiditis Expected: 10/18/2025 (Approximate), Expires: 10/18/2026 documented as of this encounter Goals Goal Patient Goal Type Associated Problems Recent Progress Patient-Stated? Author Help patients manage their type 2 diabetes Care Plan Help patients manage their type 2 diabetes Maliha Sow MA Patient has chronic kidney disease Care Plan Patient has chronic kidney disease Maliha Sow MA Patient has chronic kidney disease Care Plan Patient has chronic kidney disease MarlandHakan Hatch MD documented as of this encounter Procedures Procedure Name Priority Date/Time Associated Diagnosis Comments POCT GLYCATED HEMOGLOBIN, TOTAL Routine 10/18/2025 9:09 AM EST Type 2 diabetes mellitus treated without insulin (HCC) POCT GLUCOSE Routine 10/18/2025 9:09 AM EST Type 2 diabetes mellitus treated without insulin (HCC) documented in this encounter Results * (ABNORMAL) POCT Hgb A1c (10/18/2025 9:09 AM EST) Hemoglobin A1C 5.9(A) 4.0 - 5.7 % QC Media Lot # [id number] Lot# Expiration Date 51,227 Blood 10/18/2025 9:09 AM EST us Hakan Hatch MD POINT OF CARE TEST ENTER/EDIT OR DERABLES Final Result * POCT Glucose (10/18/2025 9:09 AM EST) Glucose Blood, POC 99 60 - 200 mg/dL QC Media Lot # [id number] Lot# Expiration Date 7,726 Blood Capillary blood specimen / Unknown 10/18/2025 9:09 AM EST us Hakan Hatch MD POINT OF CARE TEST ENTER/EDIT OR DERABLES Final Result documented in this encounter Visit Diagnoses Diagnosis Type 2 diabetes mellitus treated without insulin (HCC)- Primary Mild intermittent asthma without complication Tobacco use disorder Family history of Reuben thyroiditis documented in this encounter Additional Health Concerns Active Problems Noted Date Diagnosed Date Help patients manage their type 2 diabetes 10/17 Patient has chronic kidney disease 10/17/2025 Patient has chronic kidney disease 10/18/2025 Assessment Noted Time PHQ-9 Depression Total Score: 3 03/29/20 11:01 AM EDT documented as of this encounter Care Teams Line Installation Supervisor Relationship Specialty Start Date End Date Name, MD Hakan [address] [place] [address] PCP - General Internal Medicine 03/29/25 documented as of this encounter
--- OUTSIDE RECORDS SUMMARY | 2025-10-18 11:21 | XMS_ITS | Encounter Summary ---
Author Organization [employer] Address [address] [facility] [address] [place] [address] Care Team Providers Care Reinforcement Maker Name Role Phone Name, Hakan KATE Primary Care Provider [phone] Encounter Details Date Type Department Care Team (Latest Contact Info) Description 10/18/2025 Travel Social History Tobacco Use Types Packs/Day Years [...] Description 01/18/2026 9:30 AM EST Office Visit [facility] MEDICINE [address] [place] [address] Hakan Hatch MD [address] [place] [address] documented as of this encounter Goals Goal Patient Goal Type Associated Problems Recent Progress Patient-Stated? Author Help patients manage their type 2 diabetes Care Plan Help patients manage their type 2 diabetes No Maliha Ruby MA Patient has chronic kidney disease Care Plan Patient has chronic kidney disease No Maliha Ruby MA Patient has chronic kidney disease Care Plan Patient has chronic kidney disease [place] documented as of this encounter Visit Diagnoses Not on filedocumented in this encounter Additional Health Concerns Active Problems Noted Date Diagnosed Date Help patients manage their type 2 diabetes 10/17 Patient has chronic kidney disease 10/17/2025 Patient has chronic kidney disease 10/18/2025 Assessment Noted Time PHQ-9 Depression Total Score: 3 03/29/20 25 11:01 AM EDT documented as of this encounter Care Teams Reinforcement Maker Relationship Specialty Start Date End Date Hakan Hatch MD [address] [place] [address] PCP - General Internal Medicine 03/29/25 documented as of this encounter
--- OUTSIDE RECORDS SUMMARY | 2025-10-18 11:21 | XMS_ITS | Encounter Summary ---
Author Organization [employer] Address 75 [facility] 7t [place] [address] Care Team Providers Care Coffee Roaster Name Role Phone Name, Hakan KATE Primary Care Provider [phone] Encounter Details Date Type Department Care Team (Late st Contact Info) Description 01/11/2025 Telephone [facility] MEDICINE [address] [place], [place] [phone] Name, MD Haakn [address] [place] [address] Social History Tobacco Use Types Packs/Day Years [...] Description 01/18/2026 9:30 AM EST Office Visit [facility] MEDICINE [address] [place] [address] Name, [place] [address] documented as of this encounter Visit Diagnoses Not on filedocumented in this encounter Care Teams Coffee Roaster Relationship Specialty Start Date End Date Name, MD Hakan [address] [place] [address] PCP - General Internal Medicine 03/29/25 documented as of this encounter
--- OUTSIDE RECORDS SUMMARY | 2025-10-18 11:21 | XMS_ITS | Encounter Summary ---
Author Organization [employer] Address [address] [facility] [address] [place] [address] Care Team Providers Care Dust Operator Name Role Phone Name, Hakan KATE Primary Care Provider [phone] Reason for Visit * Reason Onset Date Comments Chart Prep 10/17/2025 Encounter Details Date Type Department Care Team ([facility] st Contact Info) Description 10/17/2025 Telephone [facility] [address] [place], [place] [phone] Name, MD Hakan [address] [place] [address] Chart Prep Social History Tobacco Use Types Packs/Day Years [...] encounter Miscellaneous Notes * Telephone Encounter - Maliha Marquez [place] - 10/17/2025 8:57 AM EST Chart Prep Labs: done from 09/16/25 Images: not done from 07/21/25 Referrals: Radiology - [place] [facility] [place] 10/26/25 at 12:30 pm Vaccines due: Covid, Flu, PCV20, Hep B, Hep A, Zoster, and HPV Screenings: mammogram and HIV, Hep C, Cervical cancer. Overdue care gaps: A1c, Glucose, and Tobacco documented in this encounter Plan of Treatment Upcoming Encounters Date Type Department Care Team (Late st Contact Info) Description 01/18/2026 9:30 AM EST Office Visit [facility] [address] [place] [address] Name, MD Hakan [address] [place] [address] documented as of this encounter Goals Goal Patient Goal Type Associated Problems Recent Progress Patient-Stated? Author Help patients manage their type 2 diabetes Care Plan Help patients manage their type 2 diabetes Maliha Sow [place] Patient has chronic kidney disease Care Plan Patient has chronic kidney disease Maliha Sow [place] documented as of this encounter Visit Diagnoses Not on filedocumented in this encounter Additional Health Concerns Active Problems Noted Date Diagnosed Date Help patients manage their type 2 diabetes 10/17 Patient has chronic kidney disease 10/17/2025 Assessment Noted Time PHQ-9 Depression Total Score: 3 03/29/20 25 11:01 AM EDT documented as of this encounter Care Teams Dust Operator Relationship Specialty Start Date End Date Name, MD Hakan [address] [place] [address] PCP - General Internal Medicine 03/29/25 documented as of this encounter
--- OUTSIDE RECORDS SUMMARY | 2025-10-18 11:21 | XMS_ITS | Encounter Summary ---
Author Organization [employer] Address [address] [facility] [address] [place] [address] Care Team Providers Care Model Builder Display Name Role Phone Name, Hakan KATE Primary Care Provider [phone] Encounter Details Date Type Department Care Team ([facility] st Contact Info) Description 04/08/2025 Orders Only [facility] [address] [place] [address] Provider, MD Tabatha Social History Tobacco Use [...] Description 01/18/2026 9:30 AM EST Office Visit [facility] [address] [place], [place] [phone] Name, MD Hakan [address] [place] [address] documented as of this encounter Procedures Procedure Name Priority Date/Time Associated Diagnosis Comments NT-PROBNP Routine 09/16/2025 8:48 AM EDT CBC WITH AUTO DIFFERENTIAL Routine 09/16/2025 8:48 AM EDT COMPREHENSIVE METABOLIC PANEL Routine 09/16/2025 8:48 AM EDT HM COLONOSCOPY Routine 03/22/2021 10:39 AM EDT documented in this encounter Results * NT-proBNP (09/16/2025 8:48 AM EDT) NT-proBNP 31.2 <300 pg/mL [facility] Comment:Reference Range:Age Group (years) NT-proBNP (pg/ml) InterpretationAll <300 Negative: HF unlikelyFor patients presenting to the ED with clinical suspicion ofnew onset or worsening HF, see below:18 to <50 >299.9 to <450.0 Grayzone: [id number] to 75 >299.9 to <900.0 other causes of>75 >299.9 to <1800.0 NT-proBNP [id number] to <50 >449.9 Positive: HF -66 >899.9>75 >1799.9Note: Elevated NT-proBNP levels should be interpreted inthe context of other clinical information. 09/16/2025 8:48 AM EDT 09/16/2025 8:52 AM EDT us Generic External Data Provider LAB BLOOD ORDERAB LES Final Result [facility] [address] [place] [address] [phone] * (ABNORMAL) Comprehensive Metabolic Panel (09/16/2025 8:48 AM EDT) Sodium 143 135 - 145 mmol/L [facility] Potassium 4.3 3.3 - 5.1 mmol/L [facility] Chloride 108 96 - 108 mmol/L [facility] Carbon Dioxide 27 22 - 29 mmol/L [facility] Anion Gap 12 12 - 20 [facility] Urea Nitrogen (BUN) 10 9 - 16 mg/dL [facility] Creatinine, Serum 1.05 0.5 - 1.4 mg/dL [facility] Creatinine Clr Calc Pharmacy 56.5 [facility] Comment:Provided height and weight: 154.94 cm,79.8 kg.eGFR (calculated from the MDRD study equation) and eCrCl(calculated from the Cockcroft-Gault equation) are based ondifferent parameters and may not yield comparable results.If eCrCl result is absurd, please check patient'sheight/weight. Estimated Glomerular Filt Rate 54 [facility] Comment:Chronic Kidney Disea se: Estimated GFR < 60 mL/min/1.30o5Kfthfi Kidney Disease: Estimated GFR < 15 mL/min/1.73m2 Glucose 124(H) 60 - 115 mg/dL [facility] Calcium 9.9 8.4 - 10.2 mg/dL [facility] Bilirubin, Total 0.2 0.0 - 1.0 mg/dL [facility] Aspartate Amino Transferase 35(H) 5 - 31 U/L [facility] Alanine Aminotransferase 40(H) 0 - 31 U/L [facility] Total Protein 8.0 6.5 - 8.0 g/dL [facility] Albumin Level 4.6 3.5 - 5.0 g/dL [facility] Alkaline Phosphatase 152(H) 39 - 117 U/L [facility] 09/16/2025 8:48 AM EDT 09/16/2025 8:52 AM EDT us Generic External Data Provider LAB BLOOD ORDERAB LES Final Result [facility] [address] [place] [address] [phone] * (ABNORMAL) CBC auto differential (09/16/2025 8:48 AM EDT) White Blood Count 13.6(H) 4.8 - 10.8 X10*3/uL [facility] Red Blood Count 5.07 4.20 - 5.50 X10*6/uL [facility] Hemoglobin 15.5 12.0 - 16.0 g/dl [facility] Hematocrit 47.0 37.0 - 47.0 % [facility] Mean Corpuscular Volume 92.7 80.0 - 98.0 fL [facility] Mean Corpuscular Hemoglobin 30.6 27.0 - 33.0 pg [facility] Mean Corpuscular HGB Conc 33.0 31.0 - 35.0 g/dl [facility] Red Cell Distribution Width 13.1 11.0 - 16.0 % [facility] Platelet Count 279 160 - 400 X10*3/uL [facility] Mean Platelet Volume 10.3 9.4 - 12.3 fL [facility] Neutrophils Percent Auto 61.4 45 - 73 % [facility] Imm Gran Pct Auto 0.4 0.0 - 0.4 % [facility] Lymphocytes Percent Auto 28.8 20 - 40 % [facility] Monocytes Percent Auto 6.4 2 - 11 % [facility] Eosinophils Percent Auto 2.5 0 - 4 % [facility] Basophils Percent Auto 0.5 0 - 2 % [facility] NRBC Pct Auto 0.0 0.0 - 0.2 /100WBC [facility] Neutrophils Absolute Auto 8.4(H) 2.0 - 8.3 x10*3/uL [facility] Imm Gran Abs Auto 0.06(H) 0.00 - 0.03 X10*3/uL [facility] Lymphocytes Absolute Auto 3.9 1.2 - 4.9 X10*3/uL [facility] Monocytes Absolute Auto 0.9 0.1 - 1.2 X10*3/uL [facility] Eosinophils Absolute Auto 0.3 0.0 - 0.4 X10*3/uL [facility] Basophils Absolute Auto 0.1 0.0 - 0.2 X10*3/uL [facility] NRBC Abs Auto 0.000 0.0 - 0.012 X10*3/uL [facility] 09/16/2025 8:48 AM EDT 09/16/2025 8:52 AM EDT us Generic External Data Provider LAB BLOOD ORDERAB LES Final Result [facility] [address] [place] [address] [phone] * Colonoscopy (03/22/2021 10:39 AM EDT) Colonoscopy Normal [...] documented as of this encounter Care Teams Model Builder Display Relationship Specialty Start Date End Date Name, MD Hakan [address] [place] [address] PCP - General Internal Medicine 03/29/25 documented as of this encounter
--- OUTSIDE RECORDS SUMMARY | 2025-10-18 11:22 | XMS_ITS | Encounter Summary ---
Author Organization [employer] Address [address] [facility] [address] [place] [address] Care Team Providers Care Actuarial Technician Name Role Phone Name, Hakan KATE Primary Care Provider [phone] Reason for Visit * Reason Onset Date Comments Med Refill 07/13/2025 Encounter Details Date Type Department Care Team ([facility] st Contact Info) Description 07/13/2025 Refill [facility] [address] [place], [place] [phone] Name, MD Hakan [address] [place] [address] Social History Tobacco Use Types Packs/Day Years [...] Description 01/18/2026 9:30 AM EST Office Visit [facility] [address] [place] [phone] Name, MD Hakan [address] [place] [address] documented as of this encounter Visit Diagnoses Not on filedocumented in this encounter Additional Health Concerns Assessment Noted Time PHQ-9 Depression Total Score: 3 03/29/20 25 11:01 AM EDT documented as of this encounter Care Teams Actuarial Technician Relationship Specialty Start Date End Date NameHakan MD [address] [place] [phone] PCP - General Internal Medicine 03/29/25 documented as of this encounter
--- OUTSIDE RECORDS SUMMARY | 2025-10-18 11:22 | XMS_ITS | Encounter Summary ---
Author Organization [employer] Address [address] [facility] [address] [place] [address] Care Team Providers Care Guest Services Agent Name Role Phone Name, Hakan KATE Primary Care Provider [phone] Reason for Visit * Reason Comments Med Refill Encounter Details Date Type Department Care Team ([facility] st Contact Info) Description 06/25/2025 Refill [facility] MED[facility]INE [address] [place], [place] [phone] Name, MD Hakan [address] [place] [address] Type 2 diabetes mellitus treated without insulin ([facility]) Social History Tobacco Use Types Packs/Day Years [...] Description 01/18/2026 9:30 AM EST Office Visit [facility] MED[facility] [address] [place] [phone] NameHakan MD [address] [place] [address] documented as of this encounter Visit Diagnoses Diagnosis Type 2 diabetes mellitus treated without insulin (HCC) documented in this encounter Additional Health Concerns Assessment Noted Time PHQ-9 Depression Total Score: 3 03/29/20 25 11:01 AM EDT documented as of this encounter Care Teams Guest Services Agent Relationship Specialty Start Date End Date NameHakan MD [address] [place] [phone] PCP - General Internal Medicine 03/29/25 documented as of this encounter
--- OUTSIDE RECORDS SUMMARY | 2025-10-18 11:22 | XMS_ITS | Clinical Summary ---
Author Organization [employer] Address [address] [place] [address] Care Team Providers Care Stamping Mill Tender Name Role Phone Name, Hakan KATE Primary Care Provider [phone] Allergies Active Allergy Reactions Criticality Noted Date [...] 026 Active Blood Glucose Monitoring Suppl (FreeStyle Gilbert Lite) w/Device kitIndications:T ype 2 diabetes mellitus treated without insulin ([facility]) Use to test blood sugar 1 times daily 1 kit 03/29/20 25 Active metFORMIN (Glucophage) 500 MG tabletIndication s:Type 2 Diabetes Mellitus Take 1 tablet (500 mg) by mouth Once per day. 90 tablet 3 05/10/20 25 026 Active Lancets miscIndications: Type 2 diabetes mellitus treated without insulin ([facility]) USE TO TEST BLOOD SUGAR ONCE A DAY 100 each 3 06/13/20 25 Active Alcohol Swabs 70 % padsIndications: Type 2 diabetes mellitus treated without insulin ([facility]) USE TO TEST BLOOD SUGAR ONCE A DAY 100 each 3 06/13/20 25 Active Accu-Chek Softclix Lancets lancetsIndicatio ns:Type 2 diabetes mellitus without complication, without long-term current use of insulin (HCC) Use to check blood sugar by subcutaneous route one time daily 100 each 11 06/16/20 25 Active Blood Glucose Monitoring Suppl (Accu-Chek Bernadette Plus) w/Device kitIndications:T ype 2 diabetes mellitus without complication, without long-term current use of insulin ([facility]) Use to check blood sugar by subcutaneous route one time daily 1 kit 06/16/20 Active glucose blood (Accu-Chek Bernadette Plus) test stripIndications :Type 2 diabetes mellitus without complication, without long-term current use of insulin ([facility]) Use to check blood sugar bu subcutaneous route one time daily 100 each 11 06/16/20 25 Active Lancet Devices (Autolet) lancing deviceIndication s:Type 2 diabetes mellitus without complication, without long-term current use of insulin ([facility]) 1 each by Other route Once per day. Use to check blood sugar by subcutaneous route one time daily 90 each 3 06/16/20 25 026 Active busPIRone (Buspar) 10 MG tablet 06/28/20 Active Ambien 5 MG tablet 06/28/20 Active clotrimazole (Lotrimin) 1 % cream apply topically to the affected area twice daily 05/24/20 Active semaglutide (Ozempic, 1 MG/DOSE,) 2 MG/1.5ML solution pen-injectorIndi cations:Type 2 Diabetes Mellitus Inject 1 mg under the skin 1 (one) time per week. 3 mL 3 10/18/20 Active nicotine (Nicoderm, Step 1) 21 MG/24HR patchIndications :Nicotine Dependence Place 1 patch on the skin 1 (one) time each day at the same time. 30 patch 2 10/18/20 Active albuterol 108 (90 Base) MCG/ACT inhalerIndicatio ns:Mild intermittent asthma without complication Inhale 2 puffs every 4 (four) hours if needed for wheezing. 18 g 10/18/20 25 026 Active fluticasone furoate (Arnuity Ellipta) 100 MCG/ACT inhalerIndicatio ns:Mild intermittent asthma without complication Inhale 1 puff Once per day. Rinse mouth with water after use to reduce aftertaste and incidence of candidiasis. Do not swallow. 1 each 10/18/20 25 026 Active Ozempic, 0.25 or 0.5 MG/DOSE, 2 MG/3ML solution pen-injector Inject 0.5 mg under the skin 1 (one) time per week. 2INJECT 0.25MG SUBCUTANEOUS ONCE WEEKLY FOR 4 WEEKS THEN INCREASE TO 0.5MG ONCE WEEKLY 2 mL 3 08/16/20 025 Discontin ued(Dose adjustmen t) Active Problems Problem Noted Date Diagnosed Date Bilateral lower extremity pain 10/18/2025 Chronic LLQ pain 10/18/2025 Overview (10/18/2025): LLQ pain -CT neg for diverticulitis-x 2-reviewed findings with patient No fevers kub Colon03/20 alf (current) use of opiate analgesic 09/25 Lumbar radiculopathy 10/18/2025 Opioid use 10/18/2025 Opioid use agreement exists 10/18/2025 Pain in pacemaker pocket 10/18/2025 Overview (10/18/2025): Spinal IPG pocket site pain Personal history of nicotine dependence 10/18/20 Overview (10/18/2025): (onset 11, 1/2-3/4ppd x 40yrs - 20+PYH) Mild intermittent asthma without complication Tobacco use disorder 07/21/2025 Obesity (BMI 30-39.9) 07/21/2025 Presence of implanted infusion pump 03/29/2025 Overview (03/29/2025): She has implanted Dilaudid infusion pump [place] [facility] [place] [facility] [place] 20[place] Mobile cecum 03/28/2025 Type 2 diabetes mellitus treated without insulin 03/20/2020 Steatosis of liver 12/25/2018 LFT elevation 06/23/2018 Anxiety 04/13/2018 Chronic low back pain 04/13/2018 Depressive disorder 04/13/2018 Overview (03/29/2025): Prescribing psychiatric provider [facility] [place] H/O: hysterectomy 04/13/2018 History of appendectomy 04/13/2018 Migraine 04/13/2018 Resolved Problems Problem Noted Date Diagnosed Date Resolved Date Herpes zoster without complication 06/23/2018 03/29/2025 Spinal cord stimulator status 04/13/2018 04/15/2025 Overview (03/29/2025): This was removed in 2023 Encounters Date Type Department Care Team Description 10/18/2025 9:00 AM EST Office Visit [address] [address] Hakan Hatch MD Type 2 diabetes mellitus treated without insulin (HCC) (Primary Dx); Mild intermittent asthma without complication; Tobacco use disorder; Family history of Reuben thyroiditis 10/18/2025 Travel 10/17/[address] [address] Hakan Hatch MD Chart Prep 10/11/2025 Travel 09/16/2025 Orders Only [facility] External Provider, [facility] 09/15/[address] [address] Hakan Hatch MD Nurse Triage 08/15/2025 Refill [facility] MEDICINE [address] [place] [address] Hakan Hatch MD 08/05/2025 9:00 AM EDT Office Visit [facility] OPTOMETRY [address] [place] [address] Jesus, Nadiya, OD Type 2 diabetes mellitus without retinopathy ([facility]/HCC) (Primary Dx); Choroidal nevus of left eye; Chorioretinal scar of both eyes; Early cataracts, bilateral; Presbyopia 08/05/2025 Travel 08/03/2025 Travel 07/25/2025 Travel 07/21/2025 9:00 AM EDT Office Visit [facility] MEDICINE [address] [place] [phone] Hakan Hatch MD Type 2 diabetes mellitus treated without insulin ([facility]/HCC) (Primary Dx); Obesity (BMI 30-39.9); Healthcare maintenance; Encounter for screening mammogram for malignant neoplasm of breast; Chronic low back pain with sciatica, sciatica laterality unspecified, unspecified back pain laterality; Tobacco use disorder 07/21/2025 Telephone [facility] MEDICINE [address] [place] [address] Dayna Prescott [place] Referral (Lung screening ) 07/21/2025 Travel from Last 3 Months Immunizations Immunization Administration Dates Next Due Influenza injectable quadriv alent IIV4 with preservative 08/05/2019 Influenza injectable quadrivalent preservative f ree 08/15/2021,10/05/2020 Influenza, Injectable, MDCK, preservative free 1 Pneumococcal Polysaccharide PPSV23 09/14/2019 Tdap 10/05/2020 Social [...] Mass Index 33.41 10/18/2025 9:08 AM EST Plan of Treatment Upcoming Encounters Date Type Department Care Team (Late st Contact Info) Description 01/18/2026 9:30 AM EST Office Visit [facility] MEDICINE [address] [place] [phone] Name, MD Hakan [address] [place] [address] Health Maintenance Due Date Last Done Comments CT Colonography 1968 FIT DNA/Cologuard 1968 FIT 1968 FOBT 1968 HIV Screening 1968 Sigmoidoscopy 1968 Diabetes: Foot Exam 1978 Hepatitis C Screening 1986 Hepatitis A Vaccines (1 of 2 - Risk 2-dose series) 1987 Hepatitis B Vaccines (1 of 3 - 19+ 3-dose series) 1987 Pap Smear 1989 Cervical Cancer Screening 1998 HPV/Cotest 1998 RSV Patients and Patients Aged 60 years or older (1 - Risk 50-74 years 1-dose series) 2018 Zoster Vaccines (1 of 2) 2018 Mammogram 10/25/2023 10/25/2021, 09/24, 05/05/2019, Additional history exists COVID-19 Vaccine ( season) 2025 11/15/2021, 03/02/2021, 02/02/2021 Colonoscopy 03/22/2026 03/22/2021 Colorectal Cancer Screening 03/22/2026 Alcohol/Substance Use Screening 03/29/2026 03/29/2025 Depression Screening 03/29/2026 03/29/2025, 03/29/20 SDOH Screening 03/29/2026 03/29/2025 Diabetes: Urine Protein Screening 04/08/2026 04/08/2025 Lipid Panel 04/08/2026 04/08/2025 Diabetes: Hemoglobin A1C 04/17/2026 025, 03/29/2025, 02/02/2021 Disability Screening 07/14/2026 07/14/2025 Tobacco Screening 10/18/2026 10/18/2025 Eye Exam 08/05/2027 08/05/2025, 07/25, 08/05/2025, Additional history exists DTaP/Tdap/Td Vaccines (2 - Td or Tdap) 10/05/2030 10/05/2020 Pneumococcal Vaccine: 50+ Years Discontinued 09/14/2019 Influenza Vaccine Completed 08/25/2025, , 10/05/2020, Additional history exists HIB Vaccines Aged Out No longer eligi [...] on patient's age to complete this topic Goals Goal Patient Goal Type Associated Problems Recent Progress Patient-Stated? Author Help patients manage their type 2 diabetes Care Plan Help patients manage their type 2 diabetes No Maliha Ruby [place] Patient has chronic kidney disease Care Plan Patient has chronic kidney disease No Elan Mcculloughado, Maliha, [place] Patient has chronic kidney disease Care Plan Patient has chronic kidney disease Hakan Nance MD Procedures Procedure Name Priority Date/Time Associated Diagnosis Comments POCT GLYCATED HEMOGLOBIN, TOTAL Routine 10/18/2025 9:09 AM EST Type 2 diabetes mellitus treated without insulin (HCC) POCT GLUCOSE Routine 10/18/2025 9:09 AM EST Type 2 diabetes mellitus treated without insulin (HCC) VASC US LOWER EXTREMITY VENOUS DUPLEX BILATERAL Routine 09/16/2025 10:07 AM EDT NT-PROBNP Routine 09/16/2025 8:48 AM EDT COMPREHENSIVE METABOLIC PANEL Routine 09/16/2025 8:48 AM EDT CBC WITH AUTO DIFFERENTIAL Routine 09/16/2025 8:48 AM EDT POCT GLUCOSE Routine 07/21/2025 9:01 AM EDT Type 2 diabetes mellitus treated without insulin (CMS/HCC) ALBUMIN, RANDOM URINE W/CREATININE Routine 04/08/2025 8:51 AM EDT Type 2 diabetes mellitus treated without insulin (CMS/HCC) LIPID PANEL, STANDARD Routine 04/08/2025 8:51 AM EDT Type 2 diabetes mellitus treated without insulin (CMS/[facility]) BI MAMMOGRAM SCREENING BILATERAL Routine 10/25/2021 1:09 PM EST HM COLONOSCOPY Routine 03/22/2021 10:39 AM EDT from Last 3 Months or Most Recently Relevant to Health Maintenance Results * (ABNORMAL) POCT Hgb A1c (10/18/2025 9:09 AM EST) Hemoglobin A1C 5.9(A) 4.0 - 5.7 % QC Media Lot # [id number] Lot# Expiration Date Blood 10/18/2025 9:09 AM EST us Hakan Hatch MD POINT OF CARE TEST ENTER/EDIT OR DERABLES Final Result * POCT Glucose (10/18/2025 9:09 AM EST) Only the most recent of2 resultswithin the time period is included. Glucose Blood, POC 99 60 - 200 mg/dL QC Media Lot # [id number] Lot# Expiration Date Blood Capillary blood specimen / Unknown 10/18/2025 9:09 AM EST us Hakan Hatch MD POINT OF CARE TEST ENTER/EDIT OR DERABLES Final Result * VASC US Lower Extremity Venous Duplex Bilateral (09/16/2025 10:07 AM EDT) 09/16/2025 10:0 7 AM EDT Narrative [facility] IM[facility]ING - 09/16/2025 10:52 AM EDT [place] [address] Ultrasound Report Signed Patient: Keli Zhou I MR#: [id number] : 1970 Acct:[id number] Age/Sex: 55 / F ADM Date: 09/16/25 Loc: .ED Attending Dr: Ordering Physician: Milvia Warren Date of Service: 09/16/25 Procedure(s): US venous duplex LE Accession Number(s): [id number] cc: Hakan Hatch MD; Milvia Warren Reason for Exam: b/l calf pain EXAMINATION: US TRIPLEX LOWER EXTREMITY, BILATERAL CLINICAL INFORMATION: Bilateral calf pain COMPARISON: None available. TECHNIQUE: Color-flow triplex imaging with spectral analysis and compression Doppler were performed on the bilateral lower extremities. FINDINGS: Respiratory variation, normal compression and augmented flow are noted throughout the bilateral lower extremities. The visualized common femoral vein, superficial femoral vein, profunda femoral vein, popliteal vein and midcalf peroneal and posterior tibial venous segments show no evidence of deep venous thrombosis bilaterally. US/US venous duplex LE BI IMPRESSION: No evidence of deep venous thrombosis involving the bilateral lower extremities. Electronically signed by: Carlos Bailey MD 09/16/2025 10:49 AM EDT RP Dictated By: Carlos Bailey MD Signed By: <Electronically signed by Carlos Bailey MD in OV> 09/16/25 1049 DD/ 1007 TD/TT: 09/16/25 1032 Stove Bottom Worker: Procedure Note Donotuseinterpreter, Image - 09/16/2025 [place] [address] Ultrasound Report Signed Patient: Keli Zhou IMR#: [id number] : 1970Acct:[id number] Age/Sex: 55 / FADM Date: 09/16/25 Loc: .ED Attending Dr: Ordering Physician: Milvia Warren Date of Service: 09/16/25 Procedure(s): US venous duplex LE BI Accession Number(s): [id number] cc: Name,Hakan KATE; Milvia Warren Reason for Exam: b/l calf pain EXAMINATION: US TRIPLEX LOWER EXTREMITY, BILATERAL CLINICAL INFORMATION: Bilateral calf pain COMPARISON: None available. TECHNIQUE: Color-flow triplex imaging with spectral analysis and compression Doppler were performed on the bilateral lower extremities. FINDINGS: Respiratory variation, normal compression and augmented flow are noted throughout the bilateral lower extremities. The visualized common femoral vein, superficial femoral vein, profunda femoral vein, popliteal vein and midcalf peroneal and posterior tibial venous segments show no evidence of deep venous thrombosis bilaterally. US/US venous duplex LE BI IMPRESSION: No evidence of deep venous thrombosis involving the bilateral lower extremities. Electronically signed by: Carlos Bailey MD 09/16/2025 10:49 AM EDT RP Dictated By: Carlos Bailey MD Signed By: <Electronically signed by Carlos Bailey MD in OV> 09/16/25 1049 DD/ 1007 TD/TT: 09/16/25 1032 Stove Bottom Worker: [facility] External Provider CV VASC ULAR PROCEDURES Final Result Performing Organization Address [facility]/ZIP Co de Phone Number [facility] [address] [place] [address] * NT-proBNP (09/16/2025 8:48 AM EDT) NT-proBNP 31.2 <300 pg/mL [facility] Comment:Reference Range:Age Group (years) NT-proBNP (pg/ml) InterpretationAll <300 Negative: HF unlikelyFor patients presenting to the ED with clinical suspicion ofnew onset or worsening HF, see below:18 to <50 >299.9 to <450.0 Grayzone: Kyqtxeox21 to 75 >299.9 to <900.0 other causes of>75 >299.9 to <1800.0 NT-proBNP [id number] to <50 >449.9 Positive: HF [id number] >899.9>75 >1799.9Note: Elevated NT-proBNP levels should be interpreted inthe context of other clinical information. 09/16/2025 8:48 AM EDT 09/16/2025 8:52 AM EDT Generic External Data Provider LAB BLOOD ORDERAB LES Final Result Performing Organization Address [facility]/ZIP Co de Phone Number [facility] [address] [place] [address] [phone] * (ABNORMAL) CBC auto differential (09/16/2025 8:48 AM EDT) White Blood Count 13.6(H) 4.8 - 10.8 X10*3/uL [facility] Red Blood Count 5.07 4.20 - 5.50 X10*6/uL [facility] Hemoglobin 15.5 12.0 - 16.0 g/dl [facility] Hematocrit 47.0 37.0 - 47.0 % [facility] Mean Corpuscular Volume 92.7 80.0 - 98.0 fL [facility] Mean Corpuscular Hemoglobin 30.6 27.0 - 33.0 pg [facility] Mean Corpuscular HGB Conc 33.0 31.0 - 35.0 g/dl [facility] Red Cell Distribution Width 13.1 11.0 - 16.0 % [facility] Platelet Count 279 160 - 400 X10*3/uL [facility] Mean Platelet Volume 10.3 9.4 - 12.3 fL [facility] Neutrophils Percent Auto 61.4 45 - 73 % [facility] Imm Gran Pct Auto 0.4 0.0 - 0.4 % [facility] Lymphocytes Percent Auto 28.8 20 - 40 % [facility] Monocytes Percent Auto 6.4 2 - 11 % [facility] Eosinophils Percent Auto 2.5 0 - 4 % [facility] Basophils Percent Auto 0.5 0 - 2 % [facility] NRBC Pct Auto 0.0 0.0 - 0.2 /100WBC [facility] Neutrophils Absolute Auto 8.4(H) 2.0 - 8.3 x10*3/uL [facility] Imm Gran Abs Auto 0.06(H) 0.00 - 0.03 X10*3/uL [facility] Lymphocytes Absolute Auto 3.9 1.2 - 4.9 X10*3/uL [facility] Monocytes Absolute Auto 0.9 0.1 - 1.2 X10*3/uL [facility] Eosinophils Absolute Auto 0.3 0.0 - 0.4 X10*3/uL [facility] Basophils Absolute Auto 0.1 0.0 - 0.2 X10*3/uL [facility] NRBC Abs Auto 0.000 0.0 - 0.012 X10*3/uL [facility] 09/16/2025 8:48 AM EDT 09/16/2025 8:52 AM EDT us Generic External Data Provider LAB BLOOD ORDERAB LES Final Result [facility] [address] [place] [address] [phone] * (ABNORMAL) Comprehensive Metabolic Panel (09/16/2025 8:48 AM EDT) Sodium 143 135 - 145 mmol/L [facility] Potassium 4.3 3.3 - 5.1 mmol/L [facility] Chloride 108 96 - 108 mmol/L [facility] Carbon Dioxide 27 22 - 29 mmol/L [facility] Anion Gap 12 12 - 20 [facility] Urea Nitrogen (BUN) 10 9 - 16 mg/dL [facility] Creatinine, Serum 1.05 0.5 - 1.4 mg/dL [facility] Creatinine Clr Calc Pharmacy 56.5 [facility] Comment:Provided height and weight: 154.94 cm,79.8 kg.eGFR (calculated from the MDRD study equation) and eCrCl(calculated from the Cockcroft-Gault equation) are based ondifferent parameters and may not yield comparable results.If eCrCl result is absurd, please check patient'sheight/weight. Estimated Glomerular Filt Rate 54 [facility] Comment:Chronic Kidney Disea se: Estimated GFR < 60 mL/min/1.94h2Fyjddg Kidney Disease: Estimated GFR < 15 mL/min/1.73m2 Glucose 124(H) 60 - 115 mg/dL [facility] Calcium 9.9 8.4 - 10.2 mg/dL [facility] Bilirubin, Total 0.2 0.0 - 1.0 mg/dL [facility] Aspartate Amino Transferase 35(H) 5 - 31 U/L [facility] Alanine Aminotransferase 40(H) 0 - 31 U/L [facility] Total Protein 8.0 6.5 - 8.0 g/dL [facility] Albumin Level 4.6 3.5 - 5.0 g/dL [facility] Alkaline Phosphatase 152(H) 39 - 117 U/L [facility] 09/16/2025 8:48 AM EDT 09/16/2025 8:52 AM EDT us Generic External Data Provider LAB BLOOD ORDERAB LES Final Result Performing Organization Address [facility] Co de Phone Number [facility] [address] [place] [phone] * Albumin, Random Urine W/Creatinine (04/08/2025 8:51 AM EDT) Creatinine, Urine 111.88 mg/dL [facility] Microalbumin Urine 21.0 mg/L [facility] Microalbum Creatinine Ratio Ur 18.7 <30 ug/mg cr [facility] Comment:Albumin/Creatinine R atio Reference Ranges: Normal: < 30 ug/mg creatinine Microalbuminuria: 30 - 300 ug/mg creatinineClinical Albuminuria: > 300 ug/mg creatinine Urine (Urine, Random) 04/08/2025 8:51 AM EDT 04/08/2025 10:59 AM EDT Hakan Hatch MD LAB URINE ORDERABLES Final Resul t Performing Organization Address [facility] Co de Phone Number [facility] [address] [place] [phone] * (ABNORMAL) Lipid Panel, Standard (04/08/2025 8:51 AM EDT) Triglycerides 275(H) <150 mg/dL [facility] Comment:Desirable Triglyceri de: less than 150 mg/dLBorderline High Triglyceride 150-199 mg/dLHigh Triglyceride: 200-499 mg/dLVery High Triglyceride: greater than or equal to 5OO mg/dL Cholesterol 150 <200 mg/dL [facility] Comment:Desirable Cholestero l: less than 200 mg/dLBorderline High Cholesterol: 200-239 mg/dLHigh Cholesterol: greater than 239 mg/dL LDL Cholesterol Calculated 61 <100 mg/dL [facility] Comment:Desirable LDL: less than 100 mg/dLNear Optimal/Above Optimal LDL: 110- 129 mg/dLBorderline High LDL: 130-159 mg/dLHigh LDL: 160-189 mg/dLVery High LDL: greater than or equal to 190 mg/dL HDL Cholesterol 34(L) >40 mg/dL [facility] Comment:Desirable HDL: great er than 40 mg/dL Note: This HDL assay may give artificially low results in patients with liver disease. Blood Venous blood specimen / Unknown 04/08/2025 8:51 AM EDT 04/08/2025 11:23 AM EDT Hakan Hatch MD LAB BLOOD ORDERABLES Final Resul t [facility] [address] [place] [address] [phone] * Req: Mammogram (Screening); Bilateral (10/25/2021 1:09 [...] or Most Recently Relevant to Health Maintenance Additional Health Concerns Active Problems Noted Date Diagnosed Date Help patients manage their type 2 diabetes 10/17 Patient has chronic kidney disease 10/17/2025 Patient has chronic kidney disease 10/18/2025 [facility] Care Teams Stamping Mill Tender Relationship Specialty Start Date End Date Name, MD Hakan [address] [place] [phone] PCP - General Internal Medicine 03/29/25
[2025-10-18 13:15] LABS: Free T4 (Free Thyroxine) 0.88 ng/dL (0.71-1.85)
== END 2025-10-18 09:45 | disposition home or self-care (01) ==
LOC: HO.HHCL 09:44
PROVIDERS: PCP Internal Medicine Geriatric Medicine; Visit Provider Internal Medicine Geriatric Medicine
DX: Z13.29 Encounter for screening for other suspected endocrine disorder (principal); Z83.49 Family history of other endocrine, nutritional and metabolic diseases
CPT/HCPCS: 36415; 84439; 84443

== ENCOUNTER 2025-11-09 08:48 | Outpatient (AMB) | payer MEDICARE, SELFPAY ==
--- NOTE | 2025-11-09 09:10 | MHC.OFFVIS ---
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: Feed Mill Manager Present Allergies bupropion (From ZYBAN) Allergy (Intermediate, Verified 11/09/25 09:12) HIVES clindamycin (CLINDAMYCIN) Allergy (Intermediate, Verified 11/09/25 09:12) HIVES Medication List - Last Reconciled 11/09/25 by Mariana Tanner LPN buspirone 15 mg PO TID escitalopram oxalate (Lexapro) 20 mg PO DAILY metformin 500 mg PO DAILY mirtazapine 45 mg PO BEDTIME semaglutide (Ozempic) 1 mg subcut QWEEK zolpidem 5 mg PO BEDTIME HPI Comments Details: History of Present Illness The patient is a 55 year old female presenting for an intrathecal pain pump refill and to address constipation. She reports new onset of severe constipation, which she notes is worse than previous episodes. She is not currently taking any medication for constipation but has considered using Miralax and stool softeners. The patient is also taking Mounjaro but does not believe it is the cause of her constipation. She reports that her pain is well-controlled with the current pump settings. Her diet includes fiber and significant water intake, but she has not been walking recently due to cold weather. Pain Description - The patient reports that her pain control is good. Pain Management: - Analgesia: The patient reports good pain control from her intrathecal pump, which contains Dilaudid and bupivacaine. - Adverse Effects: The patient is experiencing severe constipation, which is believed to be caused by the Dilaudid in the pump. - Activities of Daily Living: The patient reports she does not walk anymore because it has been cold. 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 Social History Household Members: Significant Other Household Members Other:: lives with BF Alcohol intake: never Comment: see assessments Patient Tobacco Use Status: Current everyday Tobacco user Tobacco use type: Cigarette Cigarettes Per Day: 10 Years Smoked: onset 11, 1/2-3/4ppd x 40yrs - 20+PYH Current occupational status: disabled Physical Exam Exam Exam: Physical Exam - General: No acute distress noted. - Lower Extremities: Patient denies any leg swelling. Vital Signs: Last Vital Signs Pulse 91 11/09/25 09:12 Resp 16 11/09/25 09:12 BP 114/54 L 11/09/25 09:12 Pulse Ox 98 11/09/25 09:12 Oxygen Delivery Method Room Air 11/09/25 09:12 BMI result Body Mass Index 32.7 Office Procedures Details: Intra-thecal Pump Refill The name and date of were verified, and informed consent was obtained for the procedure. The pump was interrogated, and the residual amount of fluid was found to be 5.2 mL. Patient was positioned supine on the bed and the area of the intrathecal pump was prepped with chloraprep. The fenestrated drape was sterilely applied over the area of the pump. Sterile gloves were worn and the aspiration system was assembled containing 2 22-gauge noncoring needle; the needle was connected to extension tubing which was connected to the 20-cc sterile syringe. The extension tubing was clamped. The pain pump was palpated under the skin in the patient's abdomen. The needle was inserted through the skin and the central plug of the pain pump and fluid was aspirated.?7 mL of clear fluid were aspirated.After that, a new batch of medication was obtained. The admixture was premixed in a 20cc syringe by [facility] compounding pharmacy. The syringe was connected to the bacterial filter, and then connected to the extension tubing. After that, the medication in the syringe was slowly instilled into the pump with aspirations at 15 and 5cc linares. The pump was programmed and updated per the latest parameters. The details of this program are available in the pump log that was saved and uploaded to the EMR. [id number] - Refill Procedure code (CPT) selection complete Assessment & Plan Assessment & Plan (1) Presence of intrathecal pump: Code(s): Z97.8 - Presence of other specified devices Category: Medical Plan Plan Patient was informed and verbally consented to the use of an ambient scribe for clinic note documentation during this visit. 1. Chronic Pain - The patient's intrathecal pump was refilled with Dilaudid and bupivacaine, with no changes made to the infusion concentration or parameters. - If constipation does not improve, the plan is to consider reducing the concentration of both medications at the next refill. - The battery on the pump's communicator was replaced. 2. Opioid-Induced Constipation - The constipation is attributed to the Dilaudid component of the intrathecal infusion. - A prescription for a laxative will be sent to the pharmacy. - Recommended dietary management including Miralax, dried figs, fruits, and vegetables. - Advised against continuous use of stimulant laxatives like Senna or Dulcolax to prevent gut habituation. Discussion Notes I discussed with the patient that her constipation is most likely a side effect from the Dilaudid in her intrathecal pump, as bupivacaine typically does not cause this issue. We proceeded with refilling her pump without any changes to the medication concentrations, as her pain is well-controlled. I informed her that if her constipation does not resolve, we will consider reducing the drug concentrations at her next refill. I am sending a prescription for a laxative and provided counseling on dietary measures, including Miralax, figs, fruits, and vegetables, while advising against the continuous use of stimulant laxatives. The patient's communicator battery was also replaced. The patient verbalized understanding and agreement with the plan. Patient Instructions - I am sending a prescription for a laxative to your pharmacy to help with your constipation. - Increase your intake of fiber by eating more fruits, vegetables, and dried figs. - Continue drinking plenty of water. - Avoid using [id number] laxatives like Senna or Dulcolax every day, as your body can get used to them. - Your pain pump has been refilled with the same medication as before. - If your constipation does not get better, we can adjust the medication in your pump at your next visit. Medications: New polyethylene glycol 3350 (Miralax) 17 grams PO DAILY 119 grams 0RF Coding Level of Care Code Procedure Only Diagnoses Presence of intrathecal pump Z97.8 CPT Codes Intraethecal Drug Delivery System - CPT: 79624 - Refill ([id number])
[2025-11-09 09:12] VITALS: BP 114/54; PULSE 91; RESP 16; O2SAT 98; BMI 32.7
--- OUTSIDE RECORDS SUMMARY | 2025-11-09 09:21 | XMS_ITS | Encounter Summary ---
Author Organization [employer] Address [address] [facility] [place] [address] Care Team Providers Care Reproductive Healthcare Assistant Name Role Phone Name, Hakan KATE Primary Care Provider [phone] Encounter Details Date Type Department Care Team ([facility] st Contact Info) Description 04/08/2025 Orders Only [facility] PEDS [address] [place] [address] Provider, MD Tabatha Social History Tobacco Use [...] Description 01/18/2026 9:30 AM EST Office Visit [facility] MEDICINE [address] [place], [place] [id number] Name, MD Hakan [address] [place] [address] documented as of this encounter Procedures Procedure Name Priority Date/Time Associated Diagnosis Comments NT-PROBNP Routine 09/16/2025 8:48 AM EDT CBC WITH AUTO DIFFERENTIAL Routine 09/16/2025 8:48 AM EDT COMPREHENSIVE METABOLIC PANEL Routine 09/16/2025 8:48 AM EDT HM COLONOSCOPY Routine 03/22/2021 10:39 AM EDT documented in this encounter Results * NT-proBNP (09/16/2025 8:48 AM EDT) NT-proBNP 31.2 <300 pg/mL [facility] Comment:Reference Range:Age Group (years) NT-proBNP (pg/ml) InterpretationAll <300 Negative: HF unlikelyFor patients presenting to the ED with clinical suspicion ofnew onset or worsening HF, see below:18 to <50 >299.9 to <450.0 Grayzone: [id number] to 75 >299.9 to <900.0 other causes of>75 >299.9 to <1800.0 NT-proBNP [id number] to <50 >449.9 Positive: HF [id number] >899.9>75 >1799.9Note: Elevated NT-proBNP levels should be interpreted inthe context of other clinical information. 09/16/2025 8:48 AM EDT 09/16/2025 8:52 AM EDT us Generic External Data Provider LAB BLOOD ORDERAB LES Final Result [facility] [address] [place] [address] [phone] * (ABNORMAL) Comprehensive Metabolic Panel (09/16/2025 8:48 AM EDT) Sodium 143 135 - 145 mmol/L [facility] Potassium 4.3 3.3 - 5.1 mmol/L [facility] Chloride 108 96 - 108 mmol/L [facility] Carbon Dioxide 27 22 - 29 mmol/L [facility] Anion Gap 12 12 - 20 [facility] Urea Nitrogen (BUN) 10 9 - 16 mg/dL [facility] Creatinine, Serum 1.05 0.5 - 1.4 mg/dL [facility] Creatinine Clr Calc Pharmacy 56.5 [facility] Comment:Provided height and weight: 154.94 cm,79.8 kg.eGFR (calculated from the MDRD study equation) and eCrCl(calculated from the Cockcroft-Gault equation) are based ondifferent parameters and may not yield comparable results.If eCrCl result is absurd, please check patient'sheight/weight. Estimated Glomerular Filt Rate 54 [facility] Comment:Chronic Kidney Disea se: Estimated GFR < 60 mL/min/1.29r6Jbmydx Kidney Disease: Estimated GFR < 15 mL/min/1.73m2 Glucose 124(H) 60 - 115 mg/dL [facility] Calcium 9.9 8.4 - 10.2 mg/dL [facility] Bilirubin, Total 0.2 0.0 - 1.0 mg/dL [facility] Aspartate Amino Transferase 35(H) 5 - 31 U/L [facility] Alanine Aminotransferase 40(H) 0 - 31 U/L [facility] Total Protein 8.0 6.5 - 8.0 g/dL [facility] Albumin Level 4.6 3.5 - 5.0 g/dL [facility] Alkaline Phosphatase 152(H) 39 - 117 U/L [facility] 09/16/2025 8:48 AM EDT 09/16/2025 8:52 AM EDT us Generic External Data Provider LAB BLOOD ORDERAB LES Final Result [facility] [address] [place] [address] [phone] * (ABNORMAL) CBC auto differential (09/16/2025 8:48 AM EDT) White Blood Count 13.6(H) 4.8 - 10.8 X10*3/uL [facility] Red Blood Count 5.07 4.20 - 5.50 X10*6/uL [facility] Hemoglobin 15.5 12.0 - 16.0 g/dl [facility] Hematocrit 47.0 37.0 - 47.0 % [facility] Mean Corpuscular Volume 92.7 80.0 - 98.0 fL [facility] Mean Corpuscular Hemoglobin 30.6 27.0 - 33.0 pg [facility] Mean Corpuscular HGB Conc 33.0 31.0 - 35.0 g/dl [facility] Red Cell Distribution Width 13.1 11.0 - 16.0 % [facility] Platelet Count 279 160 - 400 X10*3/uL [facility] Mean Platelet Volume 10.3 9.4 - 12.3 fL [facility] Neutrophils Percent Auto 61.4 45 - 73 % [facility] Imm Gran Pct Auto 0.4 0.0 - 0.4 % [facility] Lymphocytes Percent Auto 28.8 20 - 40 % [facility] Monocytes Percent Auto 6.4 2 - 11 % [facility] Eosinophils Percent Auto 2.5 0 - 4 % [facility] Basophils Percent Auto 0.5 0 - 2 % [facility] NRBC Pct Auto 0.0 0.0 - 0.2 /100WBC [facility] Neutrophils Absolute Auto 8.4(H) 2.0 - 8.3 x10*3/uL [facility] Imm Gran Abs Auto 0.06(H) 0.00 - 0.03 X10*3/uL [facility] Lymphocytes Absolute Auto 3.9 1.2 - 4.9 X10*3/uL [facility] Monocytes Absolute Auto 0.9 0.1 - 1.2 X10*3/uL [facility] Eosinophils Absolute Auto 0.3 0.0 - 0.4 X10*3/uL [facility] Basophils Absolute Auto 0.1 0.0 - 0.2 X10*3/uL [facility] NRBC Abs Auto 0.000 0.0 - 0.012 X10*3/uL [facility] 09/16/2025 8:48 AM EDT 09/16/2025 8:52 AM EDT us Generic External Data Provider LAB BLOOD ORDERAB LES Final Result [facility] [address] [place] [phone] * Colonoscopy (03/22/2021 10:39 AM EDT) [...] documented as of this encounter Care Teams Reproductive Healthcare Assistant Relationship Specialty Start Date End Date Name, MD Hakan [address] [place] [address] PCP - General Internal Medicine 03/29/25 documented as of this encounter
--- OUTSIDE RECORDS SUMMARY | 2025-11-09 09:21 | XMS_ITS | Encounter Summary ---
Author Organization [employer] Address [address] [place] [address] Care Team Providers Care Bridge Opener Name Role Phone Name, Hakan AKTE Primary Care Provider [phone] Encounter Details Date Type Department Care Team ([facility] st Contact Info) Description 11/04/2025 Results Follow-Up [facility] [address] [place] [address] Name, MD Hakan [address] [place] [address] POCT Glucose, POCT Hgb A1c, TSH W/Reflex to FT4 Social History Tobacco Use Types Packs/Day Years [...] Description 01/18/2026 9:30 AM EST Office Visit [facility] [address] [place] [address] Hakan Hatch MD [address] [place] [address] documented as of this encounter Goals Goal [...] has chronic kidney disease Hakan Nance MD Patient has chronic kidney disease Care Plan Patient has chronic kidney disease Hakan Nance MD documented as of this encounter Visit Diagnoses Not on filedocumented in this encounter Additional Health Concerns Active Problems Noted Date Diagnosed Date Help patients manage their type 2 diabetes 10/17 Patient has chronic kidney disease 10/17/2025 Patient has chronic kidney disease 10/18/2025 Patient has chronic kidney disease 11/04/2025 Assessment Noted Time PHQ-9 Depression Total Score: 3 03/29/20 25 11:01 AM EDT documented as of this encounter Care Teams Bridge Opener Relationship Specialty Start Date End Date Hakan Hatch MD [address] [place] [address] PCP - General Internal Medicine 03/29/25 documented as of this encounter
--- OUTSIDE RECORDS SUMMARY | 2025-11-09 09:21 | XMS_ITS | Clinical Summary ---
Author Organization [employer] Address [address] [facility] 7t [place] [address] Care Team Providers Care Financial Reserve Clerk Name Role Phone Name, Hakan KATE Primary Care Provider [phone] Allergies Active Allergy Reactions Criticality Noted Date [...] 026 Active Blood Glucose Monitoring Suppl (FreeStyle [place] Lite) w/Device kitIndications:T ype 2 diabetes mellitus treated without insulin ([facility]) Use to test blood sugar 1 times daily 1 kit 03/29/20 25 Active metFORMIN (Glucophage) 500 MG tabletIndication s:Type 2 Diabetes Mellitus Take 1 tablet (500 mg) by mouth Once per day. 90 tablet 3 05/10/20 25 026 Active Lancets miscIndications: Type 2 diabetes mellitus treated without insulin ([facility]) USE TO TEST BLOOD SUGAR ONCE A DAY 100 each 3 06/13/20 25 Active Alcohol Swabs 70 % padsIndications: Type 2 diabetes mellitus treated without insulin ([facility]) USE TO TEST BLOOD SUGAR ONCE [...] complication, without long-term current use of insulin ([facility]) Use to check blood sugar by subcutaneous route one time daily 1 kit 06/16/20 Active glucose blood (Accu-Chek Bernadette Plus) test stripIndications :Type 2 diabetes mellitus without complication, without long-term current use of insulin ([facility]) Use to check blood sugar bu subcutaneous route one time daily 100 each 11 06/16/20 25 Active Lancet Devices (Autolet) lancing deviceIndication s:Type 2 diabetes mellitus without complication, without long-term current use of insulin ([facility]) 1 each by Other route Once [...] findings with patient No fevers kub Colon03/20 group home (current) use of opiate analgesic 09/25 Lumbar [...] has implanted Dilaudid infusion pump managed at [facility] pain clinic since 2023 Mobile cecum 03/28/2025 Type 2 diabetes mellitus treated without insulin 03/20/2020 Steatosis of liver 12/25/2018 LFT elevation 06/23/2018 Anxiety 04/13/2018 Chronic low back pain 04/13/2018 Depressive disorder 04/13/2018 Overview (03/29/2025): Prescribing psychiatric provider [facility] [place] H/O: hysterectomy 04/13/2018 History of appendectomy 04/13/2018 Migraine 04/13/2018 Resolved Problems Problem Noted Date Diagnosed Date Resolved Date Herpes zoster without complication 06/23/2018 03/29/2025 Spinal cord stimulator status 04/13/2018 04/15/2025 Overview (03/29/2025): This was removed in 2023 Encounters Date Type Department Care Team Description 11/04/2025 Results Follow-Up [address] [address] Hakan Hatch MD POCT Glucose, POCT Hgb A1c, TSH W/Reflex to FT4 10/31/[address] [address] Hakan Hatch MD Mild intermittent asthma without complication 10/18/2025 9:00 AM EST Office Visit [address] [address] Hakan Hatch MD Type 2 diabetes mellitus treated without insulin (HCC) (Primary Dx); Mild intermittent asthma without complication; Tobacco use disorder; Family history of Reuben thyroiditis 10/18/2025 Orders Only [address] [address] Hakan Hatch MD 10/18/2025 Travel 10/17/[address] [address] Hakan Htach MD Chart Prep 10/11/2025 Travel 09/16/2025 Orders Only [facility] External Provider, [facility] 09/15/[address] [address] Hakan Hatch MD Nurse Triage 08/15/[address] [address] Hakan Hatch MD from Last 3 Months [...] Description 01/18/2026 9:30 AM EST Office Visit [facility] [address] [place] [address] Name, MD Hakan [address] [place] [address] Health Maintenance Due Date Last Done Comments [...] Care Plan Patient has chronic kidney disease [place] Ten MileHakan Hatch MD Patient has chronic kidney disease Care Plan Patient has chronic kidney disease [place] MileHakan Hatch MD Procedures Procedure Name Priority Date/Time Associated Diagnosis Comments T4, FREE Routine 10/18/2025 9:50 AM EST TSH W/REFLEX TO FT4 Routine 10/18/2025 9 :50 AM EST Family history of Reuben thyroiditis POCT GLYCATED HEMOGLOBIN, TOTAL Routine 10/18/2025 9:09 [...] AUTO DIFFERENTIAL Routine 09/16/2025 8:48 AM EDT ALBUMIN, RANDOM URINE W/CREATININE Routine 04/08/2025 8:51 AM EDT Type 2 diabetes mellitus treated without insulin (CMS/HCC) LIPID PANEL, STANDARD Routine 04/08/2025 8:51 AM EDT Type 2 diabetes mellitus treated without insulin (CMS/HCC) BI MAMMOGRAM SCREENING BILATERAL Routine 10/25/2021 1:09 PM EST HM COLONOSCOPY Routine 03/22/2021 10:39 AM EDT from Last 3 Months or Most Recently Relevant to Health Maintenance Results * (ABNORMAL) TSH W/Reflex to FT4 (10/18/2025 9:50 AM EST) TSH reflex Free T4 6.11(H) 0.32 - 4.0 uIU/mL [facility] Blood Venous blood specimen / Unknown 10/18/2025 9:50 AM EST 10/18/2025 11:41 AM EST us Hakan Hatch MD LAB BLOOD ORDERABLES Final Resul t [facility] [address] [place] [phone] * T4, Free (10/18/2025 9:50 AM EST) Free T4 (Free Thyroxine) 0.88 0.71 - 1.85 ng/dL [facility] 10/18/2025 9:50 AM EST 10/18/2025 11:41 AM EST us Hakan Hatch MD LAB BLOOD ORDERABLES Final Resul t [facility] [address] [place] [phone] * (ABNORMAL) POCT Hgb A1c (10/18/2025 9:09 AM EST) [facility] Hemoglobin A1C 5.9(A) 4.0 - 5.7 % QC Media Lot # [id number] Lot# Expiration Date [id number] Blood 10/18/2025 9:09 AM EST us Hakan Hatch MD POINT OF CARE TEST ENTER/EDIT OR DERABLES Final Result * POCT Glucose (10/18/2025 9:09 AM EST) Pathologist [facility] Glucose Blood, POC 99 60 - 200 mg/dL QC Media Lot # [id number] Lot# Expiration Date 7,726 Blood Capillary blood specimen / Unknown 10/18/2025 9:09 AM EST us Hakan Hatch MD POINT OF CARE TEST ENTER/EDIT OR DERABLES Final Result * VASC US Lower Extremity Venous Duplex Bilateral (09/16/2025 10:07 AM EDT) 09/16/2025 10:0 7 AM EDT Narrative [facility] - 09/16/2025 10:52 AM EDT [address] [address] Ultrasound Report Signed Patient: Keli Zhou I MR#: [id number] : 1970 Acct:[id number] Age/Sex: 55 / F ADM Date: 09/16/25 Loc: HO.ED Attending Dr: Ordering Physician: Milvia Warren Date of Service: 09/16/25 Procedure(s): US venous duplex LE BI Accession Number(s): [id number] cc: Name,Hakan KATE; Milvia Warren Reason for [...] 09/16/25 1049 DD/ 1007 TD/TT: 09/16/25 1032 Medical Service Technician: Procedure Note Donotuseinterpreter, Image - 09/16/2025 [place] [address] Ultrasound Report Signed Patient: Keli Zhou IMR#: [id number] : 1970Acct:[id number] Age/Sex: 55 / FADM Date: 09/16/25 Loc: .ED Attending Dr: Ordering Physician: Milvia Warren Date of Service: 09/16/25 Procedure(s): US venous duplex LE BI Accession Number(s): [id number] cc: Hakan Hatch MD; Milvia Warren Reason [...] 09/16/25 1049 DD/ 1007 TD/TT: 09/16/25 1032 Medical Service Technician: us [facility] External Provider CV VASC ULAR PROCEDURES Final Result [facility] [address] [place] [phone] * NT-proBNP (09/16/2025 8:48 AM EDT) NT-proBNP 31.2 <300 pg/mL [facility] Comment:Reference Range:Age Group (years) NT-proBNP (pg/ml) InterpretationAll <300 Negative: HF unlikelyFor patients presenting to the ED with clinical suspicion ofnew onset or worsening HF, see below:18 to <50 >299.9 to <450.0 Grayzone: Hwovmkin62 to 75 >299.9 to <900.0 other causes of>75 >299.9 to <1800.0 NT-proBNP mbrmoqzza50 to <50 >449.9 Positive: HF ceypbn68-30 >899.9>75 >1799.9Note: Elevated NT-proBNP levels should be interpreted inthe context of other clinical information. 09/16/2025 8:48 AM EDT 09/16/2025 8:52 AM EDT us Generic External Data Provider LAB BLOOD ORDERAB LES Final Result [facility] [address] [place] [phone] * (ABNORMAL) CBC auto differential (09/16/2025 8:48 AM EDT) White Blood Count 13.6(H) 4.8 - 10.8 X10*3/uL [facility] Red Blood Count 5.07 4.20 - 5.50 X10*6/uL [facility] Hemoglobin 15.5 12.0 - 16.0 g/dl [facility] Hematocrit 47.0 37.0 - 47.0 % [facility] Mean Corpuscular Volume 92.7 80.0 - 98.0 fL [facility] Mean Corpuscular Hemoglobin 30.6 27.0 - 33.0 pg [facility] Mean Corpuscular HGB Conc 33.0 31.0 - 35.0 g/dl [facility] Red Cell Distribution Width 13.1 11.0 - 16.0 % [facility] Platelet Count 279 160 - 400 X10*3/uL [facility] Mean Platelet Volume 10.3 9.4 - 12.3 fL [facility] Neutrophils Percent Auto 61.4 45 - 73 % [facility] Imm Gran Pct Auto 0.4 0.0 - 0.4 % [facility] Lymphocytes Percent Auto 28.8 20 - 40 % [facility] Monocytes Percent Auto 6.4 2 - 11 % [facility] Eosinophils Percent Auto 2.5 0 - 4 % [facility] Basophils Percent Auto 0.5 0 - 2 % [facility] NRBC Pct Auto 0.0 0.0 - 0.2 /100WBC [facility] Neutrophils Absolute Auto 8.4(H) 2.0 - 8.3 x10*3/uL [facility] Imm Gran Abs Auto 0.06(H) 0.00 - 0.03 X10*3/uL [facility] Lymphocytes Absolute Auto 3.9 1.2 - 4.9 X10*3/uL [facility] Monocytes Absolute Auto 0.9 0.1 - 1.2 X10*3/uL [facility] Eosinophils Absolute Auto 0.3 0.0 - 0.4 X10*3/uL [facility] Basophils Absolute Auto 0.1 0.0 - 0.2 X10*3/uL [facility] NRBC Abs Auto 0.000 0.0 - 0.012 X10*3/uL [facility] 09/16/2025 8:48 AM EDT 09/16/2025 8:52 AM EDT us Generic External Data Provider LAB BLOOD ORDERAB LES Final Result [facility] [address] [place] [phone] * (ABNORMAL) Comprehensive Metabolic Panel (09/16/2025 8:48 AM EDT) Sodium 143 135 - 145 mmol/L [facility] Potassium 4.3 3.3 - 5.1 mmol/L [facility] Chloride 108 96 - 108 mmol/L [facility] Carbon Dioxide 27 22 - 29 mmol/L [facility] Anion Gap 12 12 - 20 [facility] Urea Nitrogen (BUN) 10 9 - 16 mg/dL [facility] Creatinine, Serum 1.05 0.5 - 1.4 mg/dL [facility] Creatinine Clr Calc Pharmacy 56.5 [facility] Comment:Provided height and weight: 154.94 cm,79.8 kg.eGFR (calculated from the MDRD study equation) and eCrCl(calculated from the Cockcroft-Gault equation) are based ondifferent parameters and may not yield comparable results.If eCrCl result is absurd, please check patient'sheight/weight. Estimated Glomerular Filt Rate 54 [facility] Comment:Chronic Kidney Disea se: Estimated GFR < 60 mL/min/1.28b8Ynjaek Kidney Disease: Estimated GFR < 15 mL/min/1.73m2 Glucose 124(H) 60 - 115 mg/dL [facility] Calcium 9.9 8.4 - 10.2 mg/dL [facility] Bilirubin, Total 0.2 0.0 - 1.0 mg/dL [facility] Aspartate Amino Transferase 35(H) 5 - 31 U/L [facility] Alanine Aminotransferase 40(H) 0 - 31 U/L [facility] Total Protein 8.0 6.5 - 8.0 g/dL [facility] Albumin Level 4.6 3.5 - 5.0 g/dL [facility] Alkaline Phosphatase 152(H) 39 - 117 U/L [facility] 09/16/2025 8:48 AM EDT 09/16/2025 8:52 AM EDT us Generic External Data Provider LAB BLOOD ORDERAB LES Final Result Performing Organization Address [facility] Co de Phone Number [facility] [address] [place] [phone] * Albumin, Random Urine W/Creatinine (04/08/2025 8:51 AM EDT) Creatinine, Urine 111.88 mg/dL [facility] Microalbumin Urine 21.0 mg/L [facility] Microalbum Creatinine Ratio Ur 18.7 <30 ug/mg cr [facility] Comment:Albumin/Creatinine R atio Reference Ranges: Normal: < 30 ug/mg creatinine Microalbuminuria: 30 - 300 ug/mg creatinineClinical Albuminuria: > 300 ug/mg creatinine Urine (Urine, Random) 04/08/2025 8:51 AM EDT 04/08/2025 10:59 AM EDT us Hakan Hatch MD LAB URINE ORDERABLES Final Resul t Performing Organization Address [facility]/ZIP Co de Phone Number [facility] [address] [place] [phone] * (ABNORMAL) Lipid Panel, Standard (04/08/2025 8:51 AM EDT) Triglycerides 275(H) <150 mg/dL [facility] Comment:Desirable Triglyceri de: less than 150 mg/dLBorderline High Triglyceride 150-199 mg/dLHigh Triglyceride: 200-499 mg/dLVery High Triglyceride: greater than or equal to 5OO mg/dL Cholesterol 150 <200 mg/dL [facility] Comment:Desirable Cholestero l: less than 200 mg/dLBorderline High Cholesterol: 200-239 mg/dLHigh Cholesterol: greater than 239 mg/dL LDL Cholesterol Calculated 61 <100 mg/dL [facility] Comment:Desirable LDL: less than 100 mg/dLNear Optimal/Above Optimal LDL: 110- 129 mg/dLBorderline High LDL: 130-159 mg/dLHigh LDL: 160-189 mg/dLVery High LDL: greater than or equal to 190 mg/dL HDL Cholesterol 34(L) >40 mg/dL [facility] Comment:Desirable HDL: great er than 40 mg/dL Note: This HDL assay may give artificially low results in patients with liver disease. Blood Venous blood specimen / Unknown 04/08/2025 8:51 AM EDT 04/08/2025 11:23 AM EDT us Hakan Name LAB BLOOD ORDERABLES Final Resul t [facility] [address] [place] [phone] * Req: Mammogram (Screening); Bilateral (10/25/2021 1:09 PM EST) Anatomical Region Laterality Modality Breast Bilateral Mammography 10/25/2021 1:09 PM EST Narrative 10/25/2021 1:10 PM EST Refer to the Notes tab for result details [facility] Procedure: Req: Mammogram (Screening); Bilateral Procedure Note Provider, MD Tabatha - 02/16/2023 Refer to the Notes tab for result details [facility] Procedure: Req: Mammogram (Screening); Bilateral Hakan Name MD BRISENO BI PROCEDURES Final Result * Hm Colonoscopy [...] 10/18/2025 Patient has chronic kidney disease 11/04/2025 Insurance [facility] Care Teams Financial Reserve Clerk Relationship Specialty Start Date End Date Name, MD Hakan [address] [place] [phone] PCP - General Internal Medicine 03/29/25
--- OUTSIDE RECORDS SUMMARY | 2025-11-09 09:21 | XMS_ITS | Encounter Summary ---
Author Organization [employer] Address [address] [facility] 7t [place] [address] Care Team Providers Care Roll Up Machine Operator Name Role Phone Name, Hakan KATE Primary Care Provider [phone] Reason for Visit * Reason Onset Date Comments Med Refill 07/13/2025 Encounter Details Date Type Department Care Team ([facility] st Contact Info) Description 07/13/2025 Refill [facility] [address] [place], [place] [phone] Name, MD Hakan [address] [place] [address] Social History Tobacco Use Types Packs/Day Years [...] Description 01/18/2026 9:30 AM EST Office Visit [facility] [address] [place] [phone] Name, MD Hakan [address] [place] [address] documented as of this encounter Visit Diagnoses Not on filedocumented in this encounter Additional Health Concerns Assessment Noted Time PHQ-9 Depression Total Score: 3 03/29/20 25 11:01 AM EDT documented as of this encounter Care Teams Roll Up Machine Operator Relationship Specialty Start Date End Date NameHakan MD [address] [place] [phone] PCP - General Internal Medicine 03/29/25 documented as of this encounter
--- OUTSIDE RECORDS SUMMARY | 2025-11-09 09:21 | XMS_ITS | Encounter Summary ---
Author Organization [employer] Address 75 [facility] 7t [place] [address] Care Team Providers Care Hiv Nurse Name Role Phone Name, Hakan KATE Primary Care Provider [phone] Reason for Visit * Reason Comments Med Refill Encounter Details Date Type Department Care Team ([facility] st Contact Info) Description 06/25/2025 Refill [facility] [address] [place], [place] [phone] Name, MD Hakan [address] [place] [address] Type 2 diabetes mellitus treated without insulin ([facility]) Social History Tobacco Use Types Packs/Day Years [...] Description 01/18/2026 9:30 AM EST Office Visit [facility] [address] [place] [phone] NameHakan MD [address] [place] [address] documented as of this encounter Visit Diagnoses Diagnosis Type 2 diabetes mellitus treated without insulin (HCC) documented in this encounter Additional Health Concerns Assessment Noted Time PHQ-9 Depression Total Score: 3 03/29/20 25 11:01 AM EDT documented as of this encounter Care Teams Hiv Nurse Relationship Specialty Start Date End Date NameHakan MD [address] [place] [phone] PCP - General Internal Medicine 03/29/25 documented as of this encounter
--- OUTSIDE RECORDS SUMMARY | 2025-11-09 09:21 | XMS_ITS | Encounter Summary ---
Author Organization [employer] Address 75 [facility] [address] [place] [address] Care Team Providers Care Blacksmith Supervisor Name Role Phone Name, Hakan KATE Primary Care Provider [phone] Encounter Details Date Type Department Care Team (Late st Contact Info) Description 01/11/2025 Telephone [facility] [address] [place], [place] [phone] Name, MD Hakan [address] [place] [address] Social History Tobacco Use Types Packs/Day Years [...] state Last seen 1 year ago in [place] [employer] reminder and release form sent via mail . documented in this encounter Plan of Treatment Upcoming Encounters Date Type Department Care Team (Late st Contact Info) Description 01/18/2026 9:30 AM EST Office Visit [facility] [address] [place] [address] Name, [place] [address] documented as of this encounter Visit Diagnoses Not on filedocumented in this encounter Care Teams Blacksmith Supervisor Relationship Specialty Start Date End Date Name, MD Hakan [address] [place] [phone] PCP - General Internal Medicine 03/29/25 documented as of this encounter
--- OUTSIDE RECORDS SUMMARY | 2025-11-09 09:21 | XMS_ITS | Encounter Summary ---
Author Organization [employer] Address 75 [facility] 7t [place] [address] Care Team Providers Care Controls Project Engineer Name Role Phone Name, Hakan KATE Primary Care Provider [phone] Reason for Visit * Reason Comments Med Refill Encounter Details Date Type Department Care Team ([facility] st Contact Info) Description 10/31/2025 Refill [facility] [address] [place], [place] [phone] Name, MD Hakan [address] [place] [address] Mild intermittent asthma without complication Social History Tobacco Use Types Packs/Day Years [...] Description 01/18/2026 9:30 AM EST Office Visit [facility] [address] [place] [phone] Hakan Hatch MD [address] [place] [phone] documented as of this encounter Goals Goal Patient Goal Type Associated Problems Recent Progress Patient-Stated? Author Help patients manage their type 2 diabetes Care Plan Help patients manage their type 2 diabetes Maliha Sow [place] Patient has chronic kidney disease Care Plan Patient has chronic kidney disease Maliha Sow [place] Patient has chronic kidney disease Care Plan Patient has chronic kidney disease ChalfantHakan Hatch MD documented as of this encounter Visit Diagnoses Diagnosis Mild intermittent asthma without complication documented in this encounter Additional Health Concerns Active Problems Noted Date Diagnosed Date Help patients manage their type 2 diabetes 10/17 Patient has chronic kidney disease 10/17/2025 Patient has chronic kidney disease 10/18/2025 Assessment Noted Time PHQ-9 Depression Total Score: 3 03/29/20 25 11:01 AM EDT documented as of this encounter Care Teams Controls Project Engineer Relationship Specialty Start Date End Date Hakan Hatch MD [address] [place] [phone] PCP - General Internal Medicine 03/29/25 documented as of this encounter
== END 2025-11-09 09:47 | disposition home or self-care (01) ==
LOC: HO.PMC 08:48
PROVIDERS: PCP Internal Medicine Geriatric Medicine; Visit Provider Internal Medicine
DX: Z45.1 Encounter for adjustment and management of infusion pump (principal)
CPT/HCPCS: 62370

== ENCOUNTER → 2025-11-09 08:48 | Outpatient (BNVA) | payer MEDICARE, SELFPAY | PROVIDERS: PCP Internal Medicine Geriatric Medicine; Visit Provider Internal Medicine | DX: Z45.1 Encounter for adjustment and management of infusion pump (principal); K59.03 Drug induced constipation; T40.2X5A Adverse effect of other opioids, initial encounter; E11.9 Type 2 diabetes mellitus without complications; Z97.8 Presence of other specified devices; Z79.891 Long term (current) use of opiate analgesic | CPT/HCPCS: 62370 ==